=== PATIENT | male | born 1950 | race Caucasian/White ===

== ENCOUNTER 2016-08-02 07:01 | Outpatient (CLI) | payer MEDICARE, OTHER ==
--- NOTE | 2016-08-02 08:19 | XRAY Preliminary Report ---
Exam: XR Chest 2 View PA/LAT IMPRESSION: New pulmonary nodule in the apical right upper lobe with ill-defined nodular mid and lower lung opaci ties. CT chest can evaluate for pulmonary metastases. [facility] SITE ID: [id number]
--- NOTE | 2016-08-02 08:22 | XRAY Report ---
EXAM: CHEST RADIOGRAPHY EXAM DATE: 08/02/2016 07:13 AM. CLINICAL HISTORY: ESOPHAGEAL CANCER. COMPARISON: Chest radiograph 12/21/2015. TECHNIQUE: 2 views. FINDINGS: Lungs/Pleura: New pulmonary nodule in the apical right upper lobe. Ill-defined nodular opacities in t he mid and lower lungs. Subsegmental atelectasis at the right lung base. Mediastinum: Stable Other: Left-sided port with the tip in the superior vena cava. IVC filter noted. IMPRESSION: New pulmonary nodule in the apical right upper lobe with ill-defined nodular mid and lower lung opaci ties. CT chest can evaluate for pulmonary metastases. [facility] Referring Provider Line: [phone] SITE ID: [id number]
== END 2016-08-02 07:02 | disposition home or self-care (01) ==
LOC: DI 07:01
PROVIDERS: ATTEND Internal Medicine Hematology & Oncology
DX: R91.1 Solitary pulmonary nodule (principal); R91.8 Other nonspecific abnormal finding of lung field
CPT/HCPCS: 71020

== ENCOUNTER 2016-08-25 10:20 | Outpatient (CLI) | payer MEDICARE, OTHER ==
--- NOTE | 2016-08-27 11:28 | CONSULTATION NOTE ---
DATE OF CONSULTATION: 08/25/2016 00:00:00 REQUESTING PROVIDER: Anastacio Gilliland MD. TIME OF VISIT: 10:30-11:45. TOPIC: Initial palliative care consult. Thank you, Dr. Gilliland, for asking the Palliative Care Consult Service to be involved in the care of your patient. I am asked to provide support for pain and symptom control, as well as goals of care . History obtained from medical records, patient and . 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 He has lung and liver meta stases and progressive adenopathy. His first encounter was with the emergency room visit with chest p ain for 2 weeks with increasing shortness of breath in 10/2015. At that point in time, they did find s ome abdominal findings in the liver and lung, for which he was supposed to seek workup. He did get a PET CT scan, as well as an EGD on 12/07/2015 that did find the mass at the GE junction. His PET CT di d confirm lung and liver metastases. He did originally start with a referral to [facility]; he was pursuing a clinical trial during that workup, in December, they did find a right lower extremity DVT, and did have placement of an iliac vena cava filter. Unfortunately he was hospitalized with a GI bleed and ta jeronimo off his blood thinners but then presented in 11/2015 with an extensive left DVT. He has finished 11 cycles of FOLFOX but was experiencing progressive CEAs as well as progressive neur opathy. He was quite disappointed to find he had recurrent disease and a right pleural effusion. He s till continues with increasing liver lesions, adenopathy, and a new bone lesion at T7. He recently st arted his first round of new chemotherapy, paclitaxel and ramucirumab. This is second-line therapy. T he patient does understand the seriousness of his illness but continues to hope for the best. We are meeting today to talk about symptoms, as well as goals of care. PAST MEDICAL HISTORY Includes: 1. GERD. 2. Hiatal hernia. 3. Colon polyp. 4. Hemorrhoids. 5. Shoulder arthroplasty. 6. Colonoscopy. 7. EGD. SYMPTOM BURDEN: Patient does present with pain at 3/10. It is mostly located in his left shoulder. He does have some sharp, tingling pains bilaterally in his hands, his feet, and up traveling to his nomi ves. He reports the neuropathic discomfort at an 8/10, sees it more as the fine motor numbness, inabi lity to button shirts, his balance; and distress at the progressiveness of this. He has fatigue at a 3/10, drowsiness 2/10; denies any nausea. His appetite, with no lack of appetite 0, worst 10, a 2/10. He does have increasing shortness of breath 8/10; this is impacted with any kind of activity. He has to rest frequently even after 1 flight of stairs. He denies any depression and anxiety but does not perceive his overall wellbeing from 0-10, with zero being best wellbeing, as a 2/10. MEDICATION ALLERGIES: NONE. CURRENT MEDICATION LIST Includes: 1. Protonix 40 mg daily. 2. Hydromorphone 2 mg tabs 1-2 q.4 hours p.r.n. 3. Enoxaparin 120 mg subcu every day. 4. Ondansetron 8 mg 1 tab q.8 hours p.r.n. 5. Compazine 10 mg q.6 hours p.r.n. breakthrough nausea. MEDICATION ALLERGIES: NO KNOWN DRUG ALLERGIES. CODE STATUS: Please see palliative care discussion below. We did complete a POLST as a DO NOT RESUSCI MONDRAGON, LIMITED INTERVENTIONS, DETERMINE THE USE OR LIMITATION OF ANTIBIOTICS IF INFECTION OCCURS, WITH COMFORT THE GOAL, NO MEDICALLY ASSISTED NUTRITION. DPOA: Halle Yang, his spouse, is his DPOA; [phone]. BRIEF SOCIAL HISTORY: Patient retired in 2011 from [employer]. 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 He lives at a home with a boat and a dock, which he really enjoy s, as far as quality of life. He has a daughter with a grandson and son with 3 kids, and a stepson. Marbella baker is quite connected to the community, many friends and neighbors today, as well as the [employer]. MARITAL STATUS: He is to his , Halle. USE OF ALCOHOL: Drinks occasionally. TOBACCO: None. FAMILY HISTORY: History includes both his parents who had dementia and at [facility], as well as the of a brother who of alcoholism. PERFORMANCE STATUS: The patient is mostly limited by his dyspnea, as far as activity tolerance. He is independent in all his ADLs. He still works on his boat, is able to walk short distances though has increased trouble with cough and breathlessness. I would put him at a palliative care performance sta tus of 80%. REVIEW OF SYSTEMS HEENT: He was having some difficulty swallowing, denies any currently. CARDIOVASCULAR: Denies chest pain, though does have exertional dyspnea. RESPIRATORY: He has a very bothersome recurrent cough without any sputum. He is short of breath with exertion, needing to rest frequently, particularly doing flights of stairs. GASTROINTESTINAL: He has had history of intermittent constipation, is using MiraLax with good results . He denies any nausea. His appetite has been good. His has been quite attentive, as far as the patient has only had about a 10-pound weight loss. GENITOURINARY: Denies difficulty. MUSCULOSKELETAL: He has some left shoulder pain; some increase in activity intolerance, though this i s not attributed to weakness but dyspnea. INTEGUMENTARY: He complains of dry skin. NEUROLOGIC: As noted above, severe neuropathy in his hands, feet, and traveling up into his calf. Gio e increased balance issues. PSYCHIATRIC: Denies depression or anxiety. ENDOCRINE: No history of diabetes or hypothyroidism. HEMATOLOGIC/IMMUNOLOGIC: He has had some neutropenia but otherwise has done fairly well. No infection s. PHYSICAL EXAMINATION GENERAL APPEARANCE: He does appear somewhat fatigued, pale in color; makes good eye contact, voice is modulated. HEENT: Eyes are normal on inspection. ENT: His mucous membranes are moist. NECK: His trachea is midline. No lymphadenopathy appreciated. RESPIRATORY: He does have decreased breath sounds in the bases, no breath sounds in the bottom third of his right lower lung, dull to percussion. He does have on CT findings a right pleural effusion. CARDIOVASCULAR: His rate and rhythm are regular. Pulse is 83, blood pressure 125/82. ABDOMEN: Flat, bowel tones positive. SKIN: Color pale. EXTREMITIES: No lower extremity edema noted today. PALLIATIVE CARE DISCUSSION/WHO IS PRESENT: Myself, Halle, and the patient. The patient does recognize the seriousness of his illness, though does admit to not knowing really what to expect; feels quite f ortunate that though he has that disease, he has been quite functional without severe pain. Most prob lematic symptom has been the cough and the shortness of breath. They report they do have a durable power of medical health corporate associate attorney. I did ask that we get that on fi le. He is quite disappointed, as far as being able to participate in a clinical trial. He had been tu rned down because of his history of bleeding and having received transfusions; is wondering at this p oint, now that he has had progressive disease, and is further out from that episode, if he would be a candidate. We did discuss, as far as clinical trials overall, I did give them the website for clinic altrials.gov and the difference between phase 1, phase 2, and phase 3. I did offer to follow up with Dr. Gilliland, if he wanted further consult at [facility]; he is going to wait until Dr. Mijares comes this next time. They have had experience with her before at [facility], [facility]. I did introduce the POLST, since patient has been quite adamant when his time comes to ALLOW NATURAL , to be a DO NOT ATTEMPT RESUSCITATION. He has previously chosen DNR in his hospitalizations. We did discuss his overall goals are to focus on quality of life. He is currently getting treatment to extend quantity, but at end of life he wants a comfortable and respectful . I did introduce the concept of hospice, at the point in time he either no longer has treatment options, or he chooses no longer to be treated, and to focus on comfort. We also marked DETERMINE THE USE OR LIMITATION OF ANTI BIOTICS WHEN INFECTION OCCURS, WITH COMFORT THE GOAL, again weighing benefits and burdens at the p oint in time those decision are needed, as well as NO MEDICALLY ASSISTED NUTRITION in the context of ydu-po-trvt-extending suffering. We did review that the POLST is just a guide post, that the resuscitation is the valverde component for [facility], but all other points can be negotiated, as far as weighing benefits and burdens at this point in time. They do feel like they have talked enough to each other, as far as what he may or may not want, and understand if Halle is supposed to speak for him, he feels confident she has the information, as well as she does too. Also introduced the role of palliative care in following along side and supporting his current goals. IMPRESSION: This is a krupa 66-year-old gentleman, who has high tumor burden with stage IV esophagea l cancer at the gastroesophageal junction, metastases to the lung and liver, now with progressive dis ease, currently on second-line therapy. Advanced care planning was discussed and form completed today . Please see discussion below about symptom burden. RECOMMENDATIONS/COUNSELING DONE 1. 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 Patient is mostly experiencing numbness, some sharp shooting pains and tingling, but not in the context of pain, more so in the ability to do things. He was interested in learning about medical marijuana, counseling was done regarding THC versus CBD rati os, side effects, and current evidence. I did encourage him to visit a shop and talk specifically reg arding recommendations, as far as different products. I did review, again, the role of cannabinoids, particularly in management of neuropathy, does have some evidence; what is not known is, of course, t he dosing and quality of the products. I did also introduce duloxetine, which, in the medical world, does have some evidence for chemotherapy-induced neuropathy, particularly for the pain component and if it becomes more problematic, and as well other medications that might be tried are gabapentin and Lyrica. 2. Dyspnea secondary to lung metastases and probable progressing right effusion. Patient does have un derlying cough, increased shortness of breath, does have diminished breath sounds and dull to percuss ion; did review if patient's shortness of breath, cough, or discomfort increases, they may want to ge t a followup chest x-ray, that if it is a point of distress, can evaluate if thoracentesis may be cam ropriate. 3. Constipation. Patient is currently managing on current bowel program, did introduce bowel program, as far as opioid-induced constipation, with MiraLax as the mush and senna as the push; did write out instructions. 4. Cough and chest discomfort. Patient does get relief after a few days after chemotherapy. He did at tribute it to his chemotherapy regimen. I suspect it is more related to his dexamethasone, as it does seem to wear off over the several days after. Patient may be a candidate for ongoing support with De cadron or prednisone; this was reviewed with patient as far as options. Also encouraged him to use th e hydromorphone 2 mg 4 times a day to help with cough and breathlessness. Patient remains quite hesit ant, but did counseling regarding it as a "tool in his toolbox" and encouraged him to give it a try; addressed concerns and barriers regarding this. 5. Advanced care planning. I did review the seriousness of his illness, the continuum of care, patien t's goals of care. He is quite hopeful and wanting to do what he can to further impact his disease, i ncluding clinical trials. He will review this with his new oncologist but also is given information a bout clinicaltrials.gov, and as well discussed at end of life the goal of hospice and transitioning r egarding this and addressed all questions and concerns. Time spent 75 minutes, with greater than 50% of this done in counseling and coordination of care, brent ghing benefits and burdens of different treatment options for pain and dyspnea, as well as advanced c are planning and anticipatory guidance. JOB #: [id number] EXT JOB #:[id number]
== END 2016-08-25 10:21 | disposition home or self-care (01) ==
LOC: PC 10:20
PROVIDERS: ATTEND Nurse Practitioner Adult Health
DX: Z51.5 Encounter for palliative care (principal); G62.0 Drug-induced polyneuropathy; T45.1X5A Adverse effect of antineoplastic and immunosuppressive drugs, initial encounter; R05 Cough; R06.02 Shortness of breath; R07.89 Other chest pain; J91.0 Malignant pleural effusion; K59.03 Drug induced constipation; T40.2X5A Adverse effect of other opioids, initial encounter; M25.512 Pain in left shoulder; C16.0 Malignant neoplasm of cardia; C78.00 Secondary malignant neoplasm of unspecified lung; C78.7 Secondary malignant neoplasm of liver and intrahepatic bile duct; R59.9 Enlarged lymph nodes, unspecified; M89.9 Disorder of bone, unspecified; K21.9 Gastro-esophageal reflux disease without esophagitis; Z79.01 Long term (current) use of anticoagulants; Z86.718 Personal history of other venous thrombosis and embolism; Z66 Do not resuscitate; Z79.891 Long term (current) use of opiate analgesic; Z79.899 Other long term (current) drug therapy
CPT/HCPCS: 99205

== ENCOUNTER 2016-08-31 12:28 | Outpatient (CLI) | payer MEDICARE, OTHER ==
--- NOTE | 2016-08-31 14:11 | XRAY Report ---
CHEST PA AND LATERAL: 08/31/2016 CLINICAL HISTORY: Shortness of breath and known right pleural effusion on a chest CT from 08/02/2016. COMPARISON: Chest CT from 08/02/2016. FINDINGS: The bony thorax demonstrates minimal old compression fractures of T5 and T6 with slight lo ss in the height of these vertebrae. Normal cardiac size is noted. A catheter is seen in place with its tip in the superior vena cava. It enters the vascular system via the left subclavian vein. The mediastinum is not widened. The pulmonar y parenchyma demonstrates a large pleural effusion that almost is completely obscuring the right lung except for a small section of the right lung apex. Despite this large pleural effusion, there is no mediastinal shift. This indicates significant atelectasis of the right lung. Mild interstitial parenchymal disease is seen about the left perihilar region. Associated with this p arenchymal disease. This finding may be related to a known malignancy. The pleural effusion also is p robably related to a known malignancy. IMPRESSION: 1. EXTREMELY LARGE RIGHT PLEURAL EFFUSION IS NOTED OBSCURING ALMOST ALL OF THE RIGHT LUNG. ASSOCIATED SIGNIFICANT ATELECTASIS OF THE RIGHT LUNG IS SEEN. THE COMBINATION OF FINDINGS ARE MOST LIKELY THE R ESULT OF PATIENT'S KNOWN METASTATIC ESOPHAGEAL CARCINOMA. 2. MILD INTERSTITIAL PARENCHYMAL DISEASE IS SEEN IN THE LEFT MID TO LOWER LUNG FIELD WITH AN ELEMENT OF NODULARITY. THE FINDINGS ARE RELATED TO METASTATIC ESOPHAGEAL CARCINOMA. 3. A PORT-A-CATH IS SEEN IN PLACE WITH ITS TIP IN THE SUPERIOR VENA CAVA. COMMENT: Nurse practitioner, Carson, was notified of the above findings via her Oncology clinic suppor t staff. This notification was done by Dr. Kuhn on 08/31/2016 at 1 p.m. JOB #: [id number] EXT JOB #:[id number]
[2016-08-31 16:59] VITALS: BP 119/68
[2016-08-31] MEDS ORDERED: BUFFERED LIDOCAINE 10 ML SYRINGE IU ONE (17:21)
--- NOTE | 2016-08-31 17:31 | XRAY Report ---
CHEST PA AND LATERAL: 08/31/2016 CLINICAL HISTORY: Post right thoracentesis. FINDINGS: Less than optimal inspiratory effort is noted. Improvement is noted as compared to pre-thoracentesis chest film. Now approximately 50% of the lung parenchyma is visualized as compared to just the right lung apex prior to the thoracentesis. By ultrasound and by patient's chest x-ray, there probably is around 750 mL of fluid still remaining in the right chest. A limitation is placed on the amount of pleural fluid that can be removed at any one time because of the possibility of inducing a pneumothorax ex vacuo. Because there still is approximately 750 mL of pleural fluid remaining, suggest a Pleurx catheter be considered. Other option is to do another thoracentesis and completely drain the amount of pleural fluid present with a caveat that a chest tube might have to be placed after the procedure is completed as the result of a pneumothorax ex vacuo. The present exam also demonstrates some associated residual atelectasis in and about the right suprahilar region. The left lung once again demonstrates interstitial parenchymal disease in association with some nodularity. This most likely represents metastatic lung disease from patient's esophageal cancer. A Port-A-Cath is noted in place with its tip in the superior vena cava. The cardiac size is obscured by elevated diaphragm as well as right pleural effusion. IMPRESSION: 1. INTERVAL REMOVAL OF 1500 mL OF A RIGHT PLEURAL EFFUSION. THERE IS STILL AT LEAST 750 mL OF PLEURAL FLUID REMAINING. SEE ABOVE DISCUSSION. 2. THE EXAMINATION IS NEGATIVE FOR PNEUMOTHORAX. 3. METASTATIC LUNG DISEASE IS SEEN IN THE LEFT MID TO LOWER LUNG FIELD. 4. PORT-A-CATH NOTED IN PLACE WITH ITS TIP IN THE SUPERIOR VENA CAVA. JOB #: [id number] EXT JOB #: [id number] MTDD
--- NOTE | 2016-09-01 07:35 | Ultrasound Report ---
RIGHT THORACENTESIS UNDER ULTRASOUND GUIDANCE: 08/31/2016 CLINICAL HISTORY: Right pleural effusion related to esophageal carcinoma. FINDINGS: A PAR conference was held and informed consent was obtained. The patient's INR was 1.1. Th e patient, however, did take Lovenox today. The patient's right back was sterilely prepped and draped with Betadine and Chloraprep. Sterile techn ique was used throughout the exam. Under ultrasound guidance, 7 mL of 1% Xylocaine was used in the sk in and subcutaneous tissues of the right back. A small skin incision was made with a #11 scalpel. Und er ultrasound guidance, a Srb-P-cqdnsltb trocar catheter system was placed into the right thoracic ca vity. Once the system was in the thoracic cavity, the inner needle was removed and the catheter was a dvanced into the right pleural cavity. A total volume of 1675 mL of a serous effusion was removed fro m the right pleural cavity. There was more fluid present but it was decided to remove no more in an e ffort to avoid a pneumothorax ex vacuo. The patient tolerated the procedure well. No excess bleeding was encountered. The area of the incisio n was cleansed, covered with a 4x4 and Tegaderm. IMPRESSION: SUCCESSFUL RIGHT THORACENTESIS UNDER ULTRASOUND GUIDANCE WAS DONE USING A [id number]-[id number] CATHETER. 1675 mL OF CLEAR SEROUS EFFUSION WAS REMOVED FROM THE RIGHT PLEURAL CAVITY. RESIDUAL RIGHT PLEURAL EFFUSION WAS PRESENT BUT A LIMITATION IS PLACED ON THE AMOUNT OF PLEURAL FLUID REMOVED AT AN Y ONE TIME FOR REASONS DISCUSSED ABOVE. JOB #: [id number] EXT JOB #:[id number]
== END 2016-08-31 12:29 | disposition home or self-care (01) ==
LOC: DI 12:28
PROVIDERS: ATTEND Nurse Practitioner Adult Health
DX: J90 Pleural effusion, not elsewhere classified (principal); J98.11 Atelectasis; J98.4 Other disorders of lung; Z95.828 Presence of other vascular implants and grafts; C78.02 Secondary malignant neoplasm of left lung; C15.9 Malignant neoplasm of esophagus, unspecified; C78.7 Secondary malignant neoplasm of liver and intrahepatic bile duct
CPT/HCPCS: 32555; 36415; 71020; 85610

== ENCOUNTER 2016-09-04 10:29 | Outpatient (CLI) | payer MEDICARE, OTHER ==
--- NOTE | 2016-09-04 11:36 | XRAY Report ---
TWO-VIEW CHEST: 09/04/2016 CLINICAL INDICATION: Followup right effusion. FINDINGS: Frontal and lateral views of the chest are compared to preprocedure and postprocedure film s of 08/31/2016. The cardiac silhouette is within normal limits. Left subclavian port is stable. R ight effusion appears similar to postprocedure films of 08/31/2016. No pneumothorax is present. IMPRESSION: RESIDUAL RIGHT EFFUSION, SECONDARY TO KNOWN METASTATIC ESOPHAGEAL CANCER. NO SIGNIFICAN T INTERVAL CHANGE FROM POSTPROCEDURE FILM OF 08/31/2016. JOB #: [id number] EXT JOB #:[id number]
== END 2016-09-04 10:30 | disposition home or self-care (01) ==
LOC: DI 10:29
PROVIDERS: ATTEND Nurse Practitioner Adult Health
DX: J91.0 Malignant pleural effusion (principal); C15.9 Malignant neoplasm of esophagus, unspecified
CPT/HCPCS: 71020

== ENCOUNTER 2016-09-04 16:05 | Outpatient (CLI) | payer MEDICARE, OTHER ==
--- NOTE | 2016-09-05 11:58 | CONSULTATION NOTE ---
DATE OF CONSULTATION: 09/04/2016 00:00:00 REQUESTING PROVIDER: Anastacio Gilliland MD TIME OF VISIT: 1145 to 1230 Thank you, Dr. Gilliland, for asking the palliative care consult service to be involved in the care of your patient. I am asked to provide support for pain and symptom control, as well as goals of care . 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 He has lung and liver mets, and pro gressive adenopathy. He most recently had increasing chest heaviness, shortness of breath and cough. He was sent in for a chest x-ray with a followup thoracentesis as his right pleural effusion had incr eased. On 08/31, he did have a right thoracentesis under ultrasound guidance with almost 1700 mL of c lear serous effusion removed from the right pleural cavity. He continued to have residual right pleur al effusion, but was limited by the amount of fluid able to be removed. In followup with him on the , we did discuss followup with chest x-ray on Sunday, concern for recurrent distress regarding th is. On 09/04, his residual right effusion continued with no significant interval change from the post procedure film of 08/31. He still remains fairly short of breath with less chest heaviness and contin ues with some right chest intermittent sharp shooting pain that comes and goes, but also significant activity intolerance. In discussion with the radiologist regarding whether to continue with another t horacentesis, his recommendation was for surgical consult for pleurodesis or pleural catheter placeme nt. This was discussed at length with the patient during our visit today. Patient is continuing on FO LFOX therapy. He has had progressive CEAs as well as progressive neuropathy. He does recognize the se riousness of his illness, but is continuing to hope for the best and currently now he has fairly high symptom burden and concern regarding his right pleural effusion. SYMPTOM BURDEN: His pain overall is fairly minimal though with exertion does have some heaviness. He does have what he feels like a "rubbing effect" on the right side. His pain on the left he describes as somewhat of a buzz. He does have fatigue, he is limited by his dyspnea. He denies any nausea. His appetite has been diminishing, this is mostly related to taste changes. He denies depression. He does not feel overwhelmed. He has had some intermittent anxiety and is hoping to improve his quality of l carmella, though feels like this is impacted by his neuropathy. MEDICATION ALLERGIES: NONE. CURRENT MEDICATION LIST Includes: 1. Protonix. 2. Hydromorphone 2 mg tabs, 1-2 q.4h. p.r.n. 3. Enoxaparin 120 mg subcu every day. 4. Ondansetron 8 mg 1 tab q.8h. p.r.n. 5. Compazine 10 mg q.6h. p.r.n. breakthrough nausea. 6. Tessalon Pearles 100 mg up to TID 7. Gabapentin 100 mg at bedtime (added to today) CODE STATUS: Patient has completed a POLST, is a DO NOT RESUSCITATE, LIMITED INTERVENTIONS, DETERMINE THE USE OR LIMITATION OF ANTIBIOTICS IF INFECTION OCCURS WITH COMFORT THE GOAL AND NO MEDICALLY-A SSISTED NUTRITION. Patient goals are to continue on with treatment and support as long as quality of life and independence remains acceptable. His DPOA is Halle Yang, his spouse, . BRIEF SOCIAL HISTORY: Patient is retired from [employer]. 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 He really enjoys living at his current home with his boat on a dock. He has a daughter, son and stepson. He is quite connected in the community, and well supported by neighbors , friends and his yazdanism. PERFORMANCE STATUS: The patient is mostly limited by his dyspnea. He is able to walk short distances. He is independent in his ADLs. He continues to be impacted by his cough and breathlessness, and has had less activity over the last several days. I would put his palliative care performance status at 7 0%. REVIEW OF SYSTEMS HEENT: Had some intermittent difficulty with swallowing, but not recently. CARDIOVASCULAR: As noted above, some sharp shooting pains of his chest but not chest pain overall. RESPIRATORY: He has cough after the thoracentesis. Continues with deep breath but has improved over t he last several days. It is without sputum. He does get short of breath with exertion. Denies shortne ss of breath at rest. GASTROINTESTINAL: Reports his constipation is improved. He continues to eat poorly, concerned about o ngoing weight loss. GENITOURINARY: Denies difficulty. MUSCULOSKELETAL: Has decreased his activity. INTEGUMENTARY: Complains of dry skin. NEUROLOGIC: Continues to complain of severe neuropathy in his hands and feet, and today he did admit to sharp kind of feeling in his hands, like holding tacks in his hands. Otherwise, there is neuropath y in his legs and feet, has mostly been numbness and has impacted his ability to hold things, fine mo tor movement, and balance. PSYCHIATRIC: Denies depression. Is present with some anxiety, is worried about the recurrent effusion s and his overall prognosis. ENDOCRINE: No history of diabetes or hypothyroidism. HEMATOLOGIC/IMMUNOLOGIC: Does continue with his enoxaparin for history of clots. PHYSICAL EXAMINATION GENERAL APPEARANCE: He does appear somewhat fatigued, pale in color, voice is modulated. EYES: Normal on inspection. ENT: Mucous membranes are moist. NECK: Trachea is midline. No lymphadenopathy appreciated. RESPIRATORY: He does have diminished breath sounds about a third to half way up on the right. He does have a dry, squeaky cough. His left side is clear, though diminished in the base. CARDIOVASCULAR: His pulse is 84, O2 saturations are 95%, blood pressure 119/72. ABDOMEN: Flat, bowel sounds positive. SKIN: Color pale. EXTREMITIES: No lower extremity edema noted today. PALLIATIVE CARE DISCUSSION: Who is present; myself, Halle, and the patient. The patient remains quite concerned over the recurrent pleural effusion and the next steps as far as his treatment. Is wanting to continue with treatment but keeps bumping up against complications. Continues to want to focus on improving quality of life as well as extending life expectancy though does recognize that this is dora te limited. IMPRESSION: This is a krupa 66-year-old gentleman who has high tumor burden with stage IV esophageal cancer of the gastroesophageal junction with metastases to the lung and liver, now with fairly aggre ssive right malignant pleural effusion. Continue with advanced care planning and facilitate consults regarding pleural effusion. RECOMMENDATIONS/COUNSELING DONE 1. Neuropathy, chemotherapy induced. Again, the patient has mostly experienced numbness though does r eport some sharp shooting pains and tingling. I had educated him per his request regarding marijuana on the role in neuropathy, which is limited as far as the motor component more indicated for the neur opathic pain component. He does not feel like "he can go there." I did write him a prescription for g abapentin 100 mg at bedtime to try reminding him that we can titrate this up. He remains quite hesita nt to increase any medication or pill burden. 2. Dyspnea secondary to lung metastases and right pleural effusion. He has used the hydromorphone wit h some improvement in management of it at night. He is pacing his activity. Call in to Dr. Gilliland regarding referral and recommendations for management of his pleural effusion. Recommended consideri ng awakes with orthopnea to sleep in recliner with head of bed up. 3. Constipation. Patient currently managing on current bowel program. 4. Anorexia. The patient is complaining of taste changes. May consider adding Decadron in the future as far as support. 5. Advanced care planning. Does have a POLST in place. Will continue to work with his goals of care, address ongoing concerns. ADDENDUM 09/05/2016 AT 0735: Did talk to Dr. Gilliland. He recommends the patient gets surgical cons ult for pleurodesis versus Pleurx catheter. He tends to favor pleurodesis but would need to recognize the patient most likely would need to be hospitalized several days for this. Call to surgical center for followup. Dr. Ayoub, his regular surgeon, is not available. Varsha Chilel RN will get back t o me as far as who is available for pleurodesis versus Pleurx catheter and available appointment on a n urgent basis. Will go ahead and send referral over. JOB #: [id number] EXT JOB #:[id number]
== END 2016-09-04 16:06 | disposition home or self-care (01) ==
LOC: PC 16:05
PROVIDERS: ATTEND Nurse Practitioner Adult Health
DX: Z51.5 Encounter for palliative care (principal); G62.9 Polyneuropathy, unspecified; T45.1X5A Adverse effect of antineoplastic and immunosuppressive drugs, initial encounter; K59.00 Constipation, unspecified; R63.0 Anorexia; C16.0 Malignant neoplasm of cardia; C78.00 Secondary malignant neoplasm of unspecified lung; C78.7 Secondary malignant neoplasm of liver and intrahepatic bile duct; J91.0 Malignant pleural effusion; R59.9 Enlarged lymph nodes, unspecified; F41.9 Anxiety disorder, unspecified; Z79.01 Long term (current) use of anticoagulants; Z79.891 Long term (current) use of opiate analgesic; Z66 Do not resuscitate
CPT/HCPCS: 99215

== ENCOUNTER 2016-09-20 07:38 | Outpatient (CLI) | payer MEDICARE, OTHER ==
[2016-09-20] MEDS ORDERED: GADOBUTROL 7.5 MMOL/7.5 ML VIAL IVP ONE (08:39)
--- NOTE | 2016-09-20 09:33 | MRI Preliminary Report ---
Exam: MRI Brain W/WO Impression: 1. There is no evidence of acute or subacute cerebral infarction. 2. There is a nonspecific T2 hyperintense lesion demonstrated in the anterior right temporal lobe fred suring 6 mm exhibiting a small focus of enhancement along the ventral margin of the abnormality. Give n the provided history is CVA less than 2 weeks ago, this potentially could represent an area of late subacute early chronic stage of cerebral infarction which can exhibit enhancement. If the patient chappell s had a prior MRI and those images become available, can be used to determine stability of this findi ng, otherwise, other etiologies including that a neoplasia could produce a similar appearance and can not be excluded. Therefore follow-up imaging may be useful to demonstrate resolution or stability of this finding. This can be performed as deemed clinically appropriate. Recommend clinical correlation with history. If the patient's prior imaging becomes available then an addendum to this report will b e made at that time. 3. There is mild to moderate chronic small vessel ischemia. There is no significant generalized volum e loss for the patient's stated age. SITE ID: [id number]
--- NOTE | 2016-09-20 17:12 | MRI Report ---
EXAM: MRI BRAIN WITHOUT AND WITH CONTRAST EXAM DATE: 09/20/2016 08:49 AM. CLINICAL HISTORY: History of CVA less than 2 weeks ago. 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 COMPARISON: None available. TECHNIQUE: Multiplanar, multisequence T1-weighted and fluid-sensitive MR sequences of the brain were performed. Sequences optimized for routine evaluation. Other: None. Without and with IV Contrast: 7.5 mL Gadavist. FINDINGS: The diffusion-weighted images are normal. There is no evidence of acute or subacute cerebral infarcti on. The pituitary and sella are normal. The corpus callosum is of normal size and configuration. The aircraft loadmaster superintendent niocervical junction is normal. The cerebral vascular flow voids are patent. The optic nerves demonst rate symmetric signal intensity and size. The bilateral parotid spaces exhibit normal signal intensity. There is a T2 hyperintense lesion of the anterior right temporal lobe measuring 6 mm. This exhibits a small focus of enhancement along the ventral margin of the abnormality (36, 1002). Given the provide d history of CVA less than 2 weeks ago, this potentially could represent an area of late subacute to early chronic cerebral infarction which can exhibit enhancement. If the patient has had prior MRI jennifer ging and that becomes available it could be used to determine stability of this finding. Otherwise, o ther etiologies, including that of neoplasia, could produce a similar appearance and cannot be exclud ed. Therefore, follow-up imaging may be useful to demonstrate resolution or stability of the finding, and this can be performed as deemed clinically appropriate. Recommend correlation with history. There are punctate and confluent areas of T2 hyperintensity of the subcortical, deep, and periventric ular white matter of the supratentorial brain. Cerebral volume is normal for the patient's stated age . The T2* sequence is normal. There is no evidence of subacute or chronic hemorrhage. The optic nerves exhibit symmetric signal intensities and size. The paranasal sinuses are normally ae rated. The bilateral operations general agent spaces exhibit symmetric densities. There is fluid intensity within a few right mastoid air cells. IMPRESSION: 1. There is no evidence of acute or subacute cerebral infarction. 2. There is a nonspecific T2 hyperintense lesion demonstrated in the anterior right temporal lobe fred suring 6 mm exhibiting a small focus of enhancement along the ventral margin of the abnormality. Give n the provided history of CVA less than 2 weeks ago, this potentially could represent an area of late subacute to early chronic stage of cerebral infarction which can exhibit enhancement. If the patient has had a prior MRI and those images become available, it can be used to determine stability of this finding; otherwise, other etiologies, including that of neoplasia, could produce a similar appearanc e and cannot be excluded. Therefore, follow-up imaging may be useful to demonstrate resolution or sta bility of this finding. This can be performed as deemed clinically appropriate. Recommend clinical co rrelation with history. If the patient's prior imaging becomes available then an addendum to this rep ort will be made at that time. 3. There is mild to moderate chronic small vessel ischemia. There is no significant generalized volum e loss for the patient's stated age. Referring Provider Line: [phone] SITE ID: [id number]
[2016-09-22] MEDS ORDERED: BUFFERED LIDOCAINE 10 ML SYRINGE IU ONE (16:41)
== END 2016-09-20 07:39 | disposition home or self-care (01) ==
LOC: DI 07:38
PROVIDERS: ATTEND Family Medicine
DX: G93.9 Disorder of brain, unspecified (principal); I67.82 Cerebral ischemia
CPT/HCPCS: 70553; A9585

== ENCOUNTER 2016-09-25 09:13 | Emergency (ER) | payer MEDICARE, OTHER ==
--- NOTE | 2016-09-25 09:35 | ED Physician Documentation ---
History of Present Illness - Stated complaint Stated Complaint: SWELLING RT SIDE, BACK - Chief complaint Chief Complaint: General - Additonal information Additional information: hx from pt and EMR 66 [place] [facility] [place] mets to lungs liver and bones s/p L thoracentesis 10/02 at [facility] yesterday leaned back against pew and felt as if there was a hard golf ball swelling at procedure site now with focal TTP at site and swelling inf and lateral to site no soa cough or fever had labs Sunday has CT and MRI last week before procedure as well Review of Systems Constitutional: denies: Fever, Chills Cardiac: denies: Chest pain / pressure, Palpitations Respiratory: denies: Dyspnea, Cough Musculoskeletal: reports: Back pain (and swelling) Endocrine: reports: Easy bruising / bleeding (lovenox) Immunocompromised: reports: Chemotherapy. denies: Immunocompromised PD PAST MEDICAL HISTORY - Past Medical History Past Medical History: Yes Cardiovascular: None Respiratory: None, Other Neuro: None Endocrine/Autoimmune: None GI: GERD, Hiatal hernia, Colon polyps, Hemorrhoids : None HEENT: None Psych: Panic attacks Musculoskeletal: Chronic back pain Derm: None - Past Surgical History Past Surgical History: Yes General: Colonoscopy Ortho: Shoulder arthroplasty - Present Medications Home Medications: Ambulatory Orders Medication Instructions Recorded Confirmed Pantoprazole [Protonix] 40 mg PO DAILY 02/02/16 09/25/16 Enoxaparin [Lovenox] 120 mg SQ DAILY 03/22/16 09/25/16 Benzonatate [Tessalon Perle] 1 tab ORAL Q6HR 08/23/16 09/25/16 HYDROmorphone [Dilaudid] 1 - 2 tab ORAL Q4HR PRN 08/23/16 09/25/16 Gabapentin 100 mg PO DAILY 09/06/16 09/25/16 - Allergies Allergies/Adverse Reactions: Allergies Allergy/AdvReac Type Severity Reaction Status Date / Time No Known Drug Allergies Allergy Verified 01/17/16 11:53 - Social History Does the pt smoke?: No Smoking Status: Never smoker Does the pt drink ETOH?: No Does the pt have substance abuse?: No PD ED PE NORMAL - Vitals Vital signs reviewed: Yes - Cardiac Cardiac: RRR - Respiratory Respiratory: No respiratory distress, Clear bilaterally, Other (puncture site posterior right chest wall, TTP mild swelling no erythema, more sig swelling with slight erythema to upper lateral abd wall, otherwise, no abd TTP) Results - Vitals Vitals: Vital Signs - 24 hr 09/25/16 09/25/16 09:21 12:31 Temperature 36.4 C L 36.6 C Heart Rate 93 78 Respiratory 18 17 Rate Blood Pressure 114/70 115/75 O2 Saturation 94 100 Oxygen O2 Source Room air - Rads (name of study) ST sono Radiology: See rad report (Soft Tissue fluid c/w seroma or pleural fluid leak but not heterogeneous or sugegstive of blood or abscess) CXR Radiology: See rad report (no pneumo, small residual effusin, patchy opacities dec from prior (known mets)) Departure - Departure Disposition: 01 Home, Self Care Clinical Impression: Seroma complicating a procedure Condition: Good Instructions: ED Seroma Post Op Follow-Up: Deion Cole MD [Primary Care Provider] - Radha Mijares MD [Provider Admit Priv/Credential] - Comments: The chest xray did not show any collapsed lung, there is still a small amount of fluid in the lungs. The ultrasound was read by our radiologist and is most consistent with an uncomplicated fluid collection called a seroma - possibly due to some lung fluid continuing to drain from the puncture suite. The ultrasound does not suggest bleeding or infection/abscess So I think it is fine for you to go home. You can use a wide SHERRY wrap and apply ice for 20 minutes at a time to decrease the swelling. Have the [facility] recheck the swollen area at your appointment later this week. Return if worse (more swelling, pain, fever, swollen area become red and hot to the touch) Discharge Date/Time: 09/25/16 13:15
--- NOTE | 2016-09-25 11:27 | XRAY Preliminary Report ---
Exam: XR Chest 2 View PA/LAT IMPRESSION: 1. Mild to moderately low lung volumes. 2. Slight decreased patchy opacities at the mid to lower left lung. Persistent right lung base atelec tasis or consolidation. 3. Persistent tiny left and small to moderate-sized right pleural effusions. [facility] SITE ID: [id number]
--- NOTE | 2016-09-25 11:30 | XRAY Report ---
EXAM: CHEST RADIOGRAPHY EXAM DATE: 09/25/2016 10:52 AM. CLINICAL HISTORY: Shortness of breath. Status post right thoracentesis. COMPARISON: Chest radiography from 09/22/2016. TECHNIQUE: 2 views. FINDINGS: Lungs/Pleura: Moderate to moderately low lung volumes. Patchy opacities at the mid to lower left lung which had decreased slightly since the previous study. Tiny left and small to moderate size right pl eural effusion. No pneumothorax. Right lung base atelectasis or consolidation. No pneumothorax. Mediastinum: Heart and mediastinal contours are unremarkable. Other: calcified plaques at the thoracic aorta. Portacatheter tip is at the mid SVC. Inferior vena c sukhi filter is seen. IMPRESSION: 1. Mild to moderately low lung volumes. 2. Slight decreased patchy opacities at the mid to lower left lung. Persistent right lung base atelec tasis or consolidation. 3. Persistent tiny left and small to moderate-sized right pleural effusions. [facility] Referring Provider Line: [phone] SITE ID: [id number]
[2016-09-25 12:31] VITALS: BP 115/75
--- NOTE | 2016-09-26 10:08 | Ultrasound Report ---
RIGHT CHEST ULTRASOUND: 09/25/2016 CLINICAL HISTORY: The patient had recent right thoracentesis. A day or two later, he noted focal swel ling along the right lateral hemithorax extending anteriorly. He also noted mildly increased shortnes s of breath. TECHNIQUE: Real-time scanning was performed with quality assurance representative static images obtained. FINDINGS: Soft tissue ultrasound of the right chest and right anterior abdomen showed mild subcutane ous edema. This edema showed mild diffuse distribution in the subcutaneous soft tissues of the area o f involvement. No focal cystic areas were seen. Examination was negative for hematoma. The present findings most likely represent either extension of the Xylocaine used for the procedure w ithin the soft tissues. Other possibility is a small amount of the patient's known right pleural effu bree that has extended into the subcutaneous soft tissues through the hole in the pleura created duri ng the thoracentesis. The findings most likely do not represent a significant abnormality. Since the patient is encountering some mild increased shortness of breath, would complement the prese nt exam with a chest PA and lateral. IMPRESSION: MILD SUBCUTANEOUS EDEMA IS NOTED IN THE AREA OF SOFT TISSUE INVOLVEMENT WITHIN THE POSTE RIOR RIGHT CHEST AND RIGHT ANTERIOR ABDOMEN. JOB #: [id number] EXT JOB #:[id number]
== END 2016-09-25 13:15 | disposition home or self-care (01) ==
LOC: ED 09:13
DX: J95.862 Postprocedural seroma of a respiratory system organ or structure following a respiratory system procedure (principal); Y83.8 Other surgical procedures as the cause of abnormal reaction of the patient, or of later complication, without mention of misadventure at the time of the procedure; C16.9 Malignant neoplasm of stomach, unspecified; C78.00 Secondary malignant neoplasm of unspecified lung; C78.7 Secondary malignant neoplasm of liver and intrahepatic bile duct; C79.51 Secondary malignant neoplasm of bone; J98.19 Other pulmonary collapse; J90 Pleural effusion, not elsewhere classified; G89.29 Other chronic pain; Z92.21 Personal history of antineoplastic chemotherapy; Z79.02 Long term (current) use of antithrombotics/antiplatelets
CPT/HCPCS: 71020; 76705; 99283

== ENCOUNTER 2016-11-01 09:00 | Outpatient (CLI) | payer MEDICARE, OTHER ==
[2016-11-01 10:18] LABS: CREATININE 0.8 mg/dL (0.6-1.2)
== END 2016-11-01 09:01 | disposition home or self-care (01) ==
LOC: LAB.R 09:00
PROVIDERS: ATTEND Specialist
DX: C79.31 Secondary malignant neoplasm of brain (principal)
CPT/HCPCS: 82565; 84520

== ENCOUNTER 2016-11-02 10:15 | Outpatient (CLI) | payer MEDICARE, OTHER ==
--- NOTE | 2016-11-02 22:14 | PROVIDER PROGRESS NOTE ---
Palliative Care Follow Up - Referral Referring Provider: Dr. 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 He has had multiple lines of chemotherapy; currently on taxol/ramucirumab but ramucirumab on hold because of hemorrhoidal bleeding. He is very disappointed not moving forward on full treatment. He is scheduled for surgery on his internal hemorrhoid (difficulty with reducing) on 11/21. He has most recently had a restaging CT scan which showed new lytic lesions in 8th right rib and vertebral bodies. Of most significance is he had TIA with CT of Brain done 4 weeks ago and should brain mets. He has been put on enoxaparin. His repeat MRI showed increase size of the right termporal lesion and is going to be prepped for radiosurgery this weekend, and then follow up 11/14-11/16 per his understanding. He has had nor further neurological deficits. He has been uncomfortable on his right side/abd with seroma that developed after his last thoracentesis, and is due for another one today and is anxious. He is feeling somewhat dizzy and apprehensive prior to exam. I am meeting with him between chemotherapy (taxol) and his appointment. His cough has become problematic, as well as developed not nausea but gagging at times. Hoping with "tap" his symptoms will improve. Continues to try and stay positive but has had multiple challenges these last couple of months. Social History - Living Situation Living arrangement: At home Living Situation: With spouse/s.o. (Halle is primary caregiver) Support System: Describes a very supportive [employer] community and friends/family Medications/Allergies - Medications Home Medications: Ambulatory Orders Medication Instructions Recorded Confirmed Pantoprazole [Protonix] 40 mg PO DAILY 02/02/16 11/02/16 Enoxaparin [Lovenox] 120 mg SQ DAILY 03/22/16 11/02/16 HYDROmorphone [Dilaudid] 2 - 4 mg ORAL Q4HR PRN 08/23/16 11/02/16 Gabapentin 100 mg PO DAILY 09/06/16 11/02/16 Furosemide 20 mg PO DAILY 10/25/16 11/02/16 guaiFENesin/CODEINE [Robitussin AC] 5 - 10 ml PO Q4HR PRN 11/02/16 11/02/16 - Allergies Allergies/Adverse Reactions: Allergies Allergy/AdvReac Type Severity Reaction Status Date / Time No Known Drug Allergies Allergy Verified 09/27/16 17:38 Review of Systems - Constitutional Constitutional: reports: Fatigue, Weakness, Poor appetite, Weight loss - Eyes Eyes: reports: Corrective lenses - Ears, Nose & Throat Ears, Nose & Throat: reports: Hearing loss, Vertigo (dry mouth), Postnasal drainage - Cardiovascular Cariovascular: reports: Edema, Lightheadedness, Exertional dyspnea, Decr. exercise tolerance. denies: Chest pain - Respiratory Respiratory: reports: Cough, Orthopnea, SOB at rest, SOB with exertion - Gastrointestinal Gastrointestinal: reports: Nausea, Bloating, Poor appetite. denies: Bloody stools - Genitourinary Genitourinary: denies: Incontinence - Musculoskeletal Musculoskeletal: reports: Stiffness, Muscle weakness - Integumentary Integumentary: reports: Dryness, Hair changes (thinning;) - Neurological Neurological: reports: General weakness, Dizziness, Memory problems - Psychiatric Psychiatric: reports: Anxiety. denies: Depression - Endocrine Endocrine: reports: Intolerance to cold - Hematologic/Lymphatic Hematologic/Lymphatic: reports: Anemia - All Other Systems All Other Systems: reports: Reviewed and negative Physical Examination - Physical Exam General Appearance: positive: Mild distress, Anxious (pending thoracentesis) Eyes Bilateral: positive: Normal inspection ENT: positive: Pharynx nml, No signs of dehydration Neck: positive: No JVD, Trachea midline Respiratory: positive: Other (no breath sounds 2/[address] way up on right, left diminished in base; cough with any attempt at conversation) Cardiovascular: positive: Regular rate & rhythm Abdomen: positive: Nml bowel sounds, No distention Skin: positive: Pallor, Other (mild swelling over right side, slight tenderness ; seroma has disspated some from description and patient perception) Extremities: positive: No pedal edema (has support hose on) Neurologic/Psychiatric: positive: Oriented x3, Weakness, Depressed mood/affect Palliative Care - POLST Patient has POLST: Yes POLST Status: DNR, Limited Interventions (goal is to focus on quality of life; currently getting treatment to extend quantity, at end of life a comfortable and respectul ) Pain: Pain unchanged, Location (intermittent sharp shooting pains in feet; have some increase; numbness more bothersome; discomfort with swelling of right side , now improving), Comment (using hydromorphone 2 mg 1-2 tabs at night; occasionally during the day) Drowsiness: Mild (1-3) Nausea: Mild (1-3) Anxiety: Moderate (4-6) Dyspnea: Severe (7-10) Anorexia: Mild (1-3) Insomnia: Sleeps poorly Constipation: Yes, Opoid induced, Managed Feelings of wellbeing/Perceived Quality of Life: Worsening Performance Status: Patient still able to attend to ADLs; more fatigue; more difficulty with fine motor movement with neuropathy - Palliative Care Discussion: Patient continues to hope for the best, has been frustrated with all the complications/symptoms and issues that have developed. Acknowledged is difficult to cope when so many things are happening at the same time. He is just trying to stay calm and focused. POLST completed 08/25. At this point still very much focused on treatment options and improving quality and quantity of life. Remains concerned with impending thoracentesis with complication last time. Results - Lab Results Lab results reviewed: Yes Impression and Recommendations Recommendations/Counseling Done: 1. Post nasal drip, adds to phelgm and gagging. Unable to tolerate sprays without nose bleeds. Recommended try loratidine 10 mg daily, commit for about a week and see if improvement. 2. 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 Had started the gabapentin 100 mg at bedtime, did not continue after ran out "forgot what he was taking it for". Counseling on neuropathic pain, sharp shooting has been in feet and more problematic, encourage to restart and will titrate up to effect, in agreement. Using hydromorphone intermittently for discomfort and sleep. New Rx provided. 3. Constipation. Using Miralax, no further rectal bleeding, counseling reviewed on bowel medications and management. 4. Advanced care planning, has radiation for brain met planned, to have thoracentesis today, will continue as has improved some with treatment. Unfortunately patient continues with extended mets to brain and bone, patient continues to request support for treatment as long as adding to quality and quantity of life will move forward. Handicap Parking Permit/RX provided for patient Time Spent: Time spent 30 minutes with greater than 50% done in counseling for pain management and anticipatory guidance.
== END 2016-11-02 10:16 | disposition home or self-care (01) ==
LOC: PC 10:15
PROVIDERS: ATTEND Nurse Practitioner Adult Health
DX: Z51.5 Encounter for palliative care (principal); R09.82 Postnasal drip; G62.0 Drug-induced polyneuropathy; T45.1X5A Adverse effect of antineoplastic and immunosuppressive drugs, initial encounter; K59.03 Drug induced constipation; T40.2X5D Adverse effect of other opioids, subsequent encounter; C16.0 Malignant neoplasm of cardia; C78.7 Secondary malignant neoplasm of liver and intrahepatic bile duct; C78.00 Secondary malignant neoplasm of unspecified lung; K64.8 Other hemorrhoids; C79.31 Secondary malignant neoplasm of brain; Z86.73 Personal history of transient ischemic attack (TIA), and cerebral infarction without residual deficits; Z66 Do not resuscitate
CPT/HCPCS: 99214

== ENCOUNTER 2016-11-10 10:11 | Outpatient (CLI) | payer MEDICARE, OTHER ==
--- NOTE | 2016-11-10 10:45 | XRAY Report ---
TWO VIEW CHEST: 11/10/2016 CLINICAL INDICATION: Pleural effusion, dyspnea. COMPARISON: 11/01/2016. FINDINGS: Frontal and lateral views of the chest demonstrate increase in right pleural effusion. A l eft subclavian port is stable. No left effusion is seen. No pneumothorax. IMPRESSION: INTERVAL INCREASE IN RIGHT PLEURAL EFFUSION. JOB #: [id number] EXT JOB #:[id number]
== END 2016-11-10 10:12 | disposition home or self-care (01) ==
LOC: DI 10:11
PROVIDERS: ATTEND Nurse Practitioner Adult Health
DX: J90 Pleural effusion, not elsewhere classified (principal); R06.00 Dyspnea, unspecified
CPT/HCPCS: 71020

== ENCOUNTER 2016-11-10 10:32 | Emergency (ER) | payer MEDICARE, OTHER ==
[2016-11-10 11:17] LABS: BASOPHILS % (AUTO) 0.3 %; EOSINOPHILS % (AUTO) 4.9 %; HCT - HEMATOCRIT 27.9 % (42.0-52.0); HGB - HEMOGLOBIN 9.4 g/dL (14.0-18.0); LYMPHOCYTES % (AUTO) 18.1 %; MEAN CORPUSCULAR HEMOGLOBIN 31.5 pg (27.0-31.0); MEAN CORPUSCULAR HGB CONC 33.8 g/dL (32.0-36.0); MEAN CORPUSCULAR VOLUME 93.1 fL (80.0-94.0); MEAN PLATELET VOLUME 7.1 fL (7.4-11.4); MONOCYTES % (AUTO) 16.6 %; NEUTROPHILS % (AUTO) 60.1 %; RED BLOOD COUNT 2.99 10^6/uL (4.70-6.10); RED CELL DISTRIBUTION WIDTH 19.3 % (12.0-15.0); UNCORRECTED WHITE BLOOD COUNT 2.7 x10^3/uL; WHITE BLOOD COUNT 2.7 x10^3/uL (4.8-10.8)
[2016-11-10 11:29] LABS: BILIRUBIN,TOTAL 0.5 mg/dL (0.2-1.0); CALCIUM 8.6 mg/dL (8.5-10.3); CREATININE 0.8 mg/dL (0.6-1.2); POTASSIUM 4.1 mmol/L (3.5-5.0); TOTAL PROTEIN 6.3 g/dL (6.7-8.2)
--- NOTE | 2016-11-10 11:31 | ED Physician Documentation ---
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 He has had recurrent pleural effusions on the right side and has had it drained 3 times previously. The last was performed about a week ago here at her facility. The patient is currently off his chemotherapy but he sees another physician at [facility] where he is getting brain radiation for brain metastases. For the last day he has been more short of breath than usual. The shortness of breath is only with walking and does not occur at rest. He denies any fever or chills. There is no nausea, vomiting, constipation, diarrhea or lower urinary symptoms. A portable x-ray was done he was sent in for evaluation of recurrent right-sided pleural effusion. Review of systems: For pertinent positive and negatives in the review of systems please see the history of present illness, otherwise all other systems have been reviewed and are negative. Dragon disclaimer: Parts of this medical record were created using voice recognition technology. Because of the inherent limitations of this system, occasional same sounding word substitutions do occur and persist despite proofreading. Please read the document for context. Review of Systems Constitutional: denies: Fever, Chills Respiratory: reports: Dyspnea PD PAST MEDICAL HISTORY - Past Medical History Cardiovascular: None Respiratory: None, Other Neuro: None Endocrine/Autoimmune: None GI: GERD, Hiatal hernia, Colon polyps, Hemorrhoids : None HEENT: None Psych: Panic attacks Musculoskeletal: Chronic back pain Derm: None Other Past Medical History: Esophageal CA, metastatic to lungs and brain. - Past Surgical History Past Surgical History: Yes General: Colonoscopy Ortho: Shoulder arthroplasty - Present Medications Home Medications: Ambulatory Orders Medication Instructions Recorded Confirmed Pantoprazole [Protonix] 40 mg PO DAILY 02/02/16 11/10/16 Enoxaparin [Lovenox] 120 mg SQ DAILY 03/22/16 11/10/16 HYDROmorphone [Dilaudid] 2 - 4 mg ORAL Q4HR PRN 08/23/16 11/10/16 Gabapentin 100 mg PO DAILY 09/06/16 11/10/16 Furosemide 20 mg PO DAILY 10/25/16 11/10/16 guaiFENesin/CODEINE [Robitussin AC] 5 - 10 ml PO Q4HR PRN 11/02/16 11/10/16 Acetaminophen [Tylenol] 650 mg pe PO PRN PRN 11/10/16 11/10/16 Benzonatate [Benzonatate] 100 mg PO DAILY 11/10/16 11/10/16 - Allergies Allergies/Adverse Reactions: Allergies Allergy/AdvReac Type Severity Reaction Status Date / Time No Known Drug Allergies Allergy Verified 09/27/16 17:38 - Social History Does the pt smoke?: No Smoking Status: Never smoker Does the pt drink ETOH?: No Does the pt have substance abuse?: No - POLST Patient has POLST: Yes PD ED PE NORMAL - Vitals Vital signs reviewed: Yes - General General: Alert and oriented X 3, No acute distress - HEENT HEENT: Atraumatic, PERRL, Pharynx benign - Neck Neck: Supple, no meningeal sign - Cardiac Cardiac: RRR, No murmur - Respiratory Respiratory: No respiratory distress, Other (Decreased breath sounds right side and dullness to percussion right side involving the entire lung) - Abdomen Abdomen: Normal bowel sounds, Soft - Derm Derm: Normal color, Warm and dry - Extremities Extremities: No deformity, No tenderness to palpate - Neuro Neuro: Alert and oriented X 3, box estimator 2-12 intact, No motor deficit, No sensory deficit - Psych Psych: Normal mood, Normal affect Results - Vitals Vitals: Vital Signs - 24 hr 11/10/16 11/10/16 11/10/16 10:36 13:12 14:07 Temperature 36.1 C L Heart Rate 91 85 91 Respiratory 22 17 20 Rate Blood Pressure 115/102 H 104/70 116/80 O2 Saturation 99 95 98 Oxygen O2 Source Room air - Labs Labs: Laboratory Tests 11/10/16 11/10/16 11:10 11:10 WBC 2.7 L RBC 2.99 L Hgb 9.4 L Hct 27.9 L MCV 93.1 MCH 31.5 H MCHC 33.8 RDW 19.3 H Plt Count 252 MPV 7.1 L Neut # [employer] Lymph # [employer] Trinity # [employer] Eos # [employer] Baso # [employer] Absolute Nucleated RBC [employer] Total Counted 100 Band Neuts % (Manual) 0 Neutrophils # (Manual) 1.7 Lymphocytes # (Manual) 0.5 L Monocytes # (Manual) 0.3 Eosinophils # (Manual) 0.0 Basophils # (Manual) 0.1 Nucleated RBCs [employer] Differential Comment MANUAL DIFFERENTIAL Platelet Estimate NORMAL (130-450,000) Platelet Morphology 1+ LARGE PLATELETS RBC Morph Micro Appear 2+ ANISOCYTOSIS Sodium 135 Potassium 4.1 Chloride 104 Carbon Dioxide 23 Anion Gap 8.0 BUN 12 Creatinine 0.8 Estimated GFR (MDRD) 96 Glucose 94 Calcium 8.6 Total Bilirubin 0.5 AST 32 ALT 21 Alkaline Phosphatase 114 Total Protein 6.3 L Albumin 3.1 L Globulin 3.2 Albumin/Globulin Ratio 1.0 Lipase 17 L PD MEDICAL DECISION MAKING - ED course ED course: Patient is a pleasant 66-year-old man with a history of metastatic esophageal cancer. He is here as directed by [facility] for evaluation of a worsening right-sided pleural effusion. It was last drained on the of last month so approximately 1 week ago. At that time they took 2 L off and the time before they took approximately 2 L off as well. The patient reports worsening dyspnea overnight. On examination he is a well-appearing man who is breathing comfortably at rest with normal pulse oximetry. The right lung is completely without lung sounds on auscultation and is dull to percussion. An x-ray obtained from the outside clinic shows about 60-70% obscuration of the right lung. We did not have correct staff thing for the radiologist to do a thoracentesis here at our facility so the patient agreed to have me perform the thoracentesis. The procedure was explained in detail and consent was obtained. The patient was placed in the sitting position and his back was prepped with chlorhexidine. Using ultrasound the fluid level was located and marked. Once the skin was cleansed it was anesthetized in the usual fashion. We did borrow a kit from radiology that had a smaller trocar and the safety tip needle. This trocar was advanced after incising the skin with a scalpel. Blood-tinged fluid was obtained and over time 2 L of blood-tinged fluid was removed. Because of the patient's symptoms of cough and pain we are unable to remove more fluid. The patient tolerated the procedure well and was watched for an hour or 2 afterward. We attempted to get a hold of his oncologist but were unable to do so. We did talk with the oncologist nurse who is going to report to her that the patient in general has been doing a little worse with recurrent pleural effusions, continued rectal bleeding that is going to be addressed by hemorrhoidectomy on the 12th of this month. He is also getting total brain radiation via external beam at [facility] for metastases. The patient's hemoglobin here is 9.5 down from 11 a couple months ago. Disposition: To home Clinical impression: 1. Malignant effusion right side status post thoracentesis in the emergency department Departure - Departure Disposition: 01 Home, Self Care Clinical Impression: Malignant pleural effusion Condition: Good Instructions: Effusion Pleural, ED Effusion Pleural Follow-Up: Deion Cole MD [Primary Care Provider] - Radha Mijares MD [Provider Admit Priv/Credential] -
[2016-11-10 11:34] LABS: BAND NEUTROPHILS % (MANUAL) 0 %
[2016-11-10] MEDS ORDERED: SODIUM CHLORIDE FLUSH 0.9% 10 ML SYRINGE IVP ONE (13:01)
[2016-11-10] MEDS ORDERED: HYDROmorphone 1 MG/ML SYRINGE ONE (13:01)
[2016-11-10 13:20] LABS: BASOPHILS % (MANUAL) 4 %; EOSINOPHILS % (MANUAL) 1 %; LYMPHOCYTES % (MANUAL) 19 %; NEUTROPHILS % (MANUAL) 64 %; TOTAL CELLS COUNTED 100
[2016-11-10 13:24] LABS: NP AUTO DIFFERENTIAL? YES; PLATELET ESTIMATE, MANUAL NORMAL (130-450,000) (NORMAL); PLATELET MORPHOLOGY 1+ LARGE PLATELETS (NORMAL)
[2016-11-10 13:25] LABS: NP MAN DIFFERENTIAL? NO
[2016-11-10 15:26] VITALS: BP 116/76
== END 2016-11-10 15:28 | disposition home or self-care (01) ==
LOC: ED 10:32
DX: R06.00 Dyspnea, unspecified (principal); C15.9 Malignant neoplasm of esophagus, unspecified; C78.7 Secondary malignant neoplasm of liver and intrahepatic bile duct; C79.51 Secondary malignant neoplasm of bone; C79.31 Secondary malignant neoplasm of brain; J91.0 Malignant pleural effusion; Z92.21 Personal history of antineoplastic chemotherapy
CPT/HCPCS: 32554; 36415; 71020; 80053; 83690; 85025; 99283; 99284; J1170

== ENCOUNTER 2016-11-20 12:39 | Emergency (ER) | payer MEDICARE, OTHER ==
--- NOTE | 2016-11-20 13:20 | ED Physician Documentation ---
PD HPI DYSPNEA - Stated complaint Stated Complaint: SOA - Chief complaint Chief Complaint: Resp - History obtained from History obtained from: Patient, Family - History of Present Illness Timing - onset: How many days ago (several) Timing - onset during: Exertion Timing - duration: Days Timing - details: Gradual onset Pain level max: 4 Pain level now: 3 Improved by: Rest, Other (Thoracentesis) Worsened by: Exertion Associated symptoms: No: Fever, Wheezing, Palpitations, Diaphoresis, Bilateral edema, Unilateral edema Recently seen: Emergency Dept - Additional information Additional information: Patient is a 66-year-old male with a history of esophageal and lung cancer that has metastasized to the brain. Currently undergoing brain radiation, but not chemotherapy. He has had recurrent malignant pleural effusions, most recently drained 3 days ago. States has had increasing dyspnea again. [facility] has had this drained approximately 4 times in the past month and a half. Patient denies any fevers. Patient states that he does have a mild cough, clear sputum. Review of Systems Constitutional: denies: Fever, Chills GI: denies: Abdominal Pain, Nausea, Vomiting, Diarrhea Skin: denies: Rash Musculoskeletal: denies: Neck pain, Back pain Neurologic: denies: Headache PD PAST MEDICAL HISTORY - Past Medical History Cardiovascular: None Respiratory: None, Other Neuro: None Endocrine/Autoimmune: None GI: GERD, Hiatal hernia, Colon polyps, Hemorrhoids : None HEENT: None Psych: Panic attacks Musculoskeletal: Chronic back pain Derm: None - Past Surgical History Past Surgical History: Yes General: Colonoscopy Ortho: Shoulder arthroplasty - Present Medications Home Medications: Ambulatory Orders Medication Instructions Recorded Confirmed Pantoprazole [Protonix] 40 mg PO BID 02/02/16 11/20/16 Enoxaparin [Lovenox] 120 mg SQ DAILY 03/22/16 11/20/16 HYDROmorphone [Dilaudid] 2 - 4 mg ORAL Q4HR PRN 08/23/16 11/20/16 Gabapentin 100 mg PO BID 09/06/16 11/20/16 guaiFENesin/CODEINE [Robitussin AC] 5 - 10 ml PO Q4HR PRN 11/02/16 11/20/16 Acetaminophen [Tylenol] 650 mg pe PO PRN PRN 11/10/16 11/20/16 Memantine [Namenda] 5 mg PO DAILY 11/16/16 11/20/16 - Allergies Allergies/Adverse Reactions: Allergies Allergy/AdvReac Type Severity Reaction Status Date / Time No Known Drug Allergies Allergy Verified 09/27/16 17:38 - Social History Does the pt smoke?: No Smoking Status: Never smoker Does the pt drink ETOH?: No Does the pt have substance abuse?: No - POLST Patient has POLST: Yes PD ED PE NORMAL - Vitals Vital signs reviewed: Yes - General General: Alert and oriented X 3, No acute distress, Well developed/nourished - HEENT HEENT: PERRL, Moist mucous membranes - Neck Neck: Supple, no meningeal sign - Cardiac Cardiac: RRR, Strong equal pulses - Respiratory Respiratory: No respiratory distress, Other (Diminished breath sounds on the right side.) - Abdomen Abdomen: Soft, Non tender, Non distended - Derm Derm: Warm and dry, No rash - Extremities Extremities: No edema - Neuro Neuro: Alert and oriented X 3 - Psych Psych: Normal mood, Normal affect Results - Vitals Vitals: Vital Signs - 24 hr 11/20/16 12:42 Temperature 36.2 C L Heart Rate 92 Respiratory 22 Rate Blood Pressure 126/74 O2 Saturation 97 Oxygen O2 Source Room air - Rads (name of study) cxr Radiology: Prelim report reviewed, EMP read contemporaneously PD MEDICAL DECISION MAKING - ED course Complexity details: reviewed old records, reviewed results, re-evaluated patient , considered differential, d/w patient, d/w family, d/w economic consultant (Dr. Ayoub ) ED course: Patient is a 66-year-old male who presents to the emergency department with recurrent pleural effusions. Is scheduled to have hemorrhoid surgery tomorrow with Dr. Ayoub, therefore Dr. Ayoub was consulted and will change this to either a Pleurx or pleurodesis. Patient is not in acute respiratory distress at this time. Patient will follow-up tomorrow for surgery. Patient counseled regarding signs and symptoms for which I believe and urgent re- evaluation would be necessary. Patient with good understanding of and agreement to plan and is comfortable going home at this time This document was made in part using voice recognition software. While efforts are made to proofread this document, sound alike and grammatical errors may occur. Departure - Departure Disposition: 01 Home, Self Care Clinical Impression: Pleural effusion Condition: Good Instructions: ED Effusion Pleural Follow-Up: Lion Ayoub MD [Provider Admit Priv/Credential] - Tomorrow Comments: Follow up tomorrow as directed by Dr. Ayoub today
--- NOTE | 2016-11-20 13:42 | XRAY Preliminary Report ---
Exam: XR Chest 2 View PA/LAT IMPRESSION: 1. Moderate right and small left pleural effusions appear similar to previous. [facility] SITE ID: [id number]
--- NOTE | 2016-11-20 13:45 | XRAY Report ---
EXAM: CHEST RADIOGRAPHY EXAM DATE: 11/20/2016 01:31 PM. CLINICAL HISTORY: Dyspnea. COMPARISON: 11/10/2016. TECHNIQUE: 2 views. FINDINGS: Lungs/Pleura: There is a moderate-sized right pleural effusion. There is increased density in the low er right lung consistent with atelectasis, appearing similar to previous. There is mild blunting of t he left costophrenic angle consistent with a small left pleural effusion. Mediastinum: Trachea is midline. Heart size without significant change. Left-sided Port-A-Cath appear s unchanged in position. Other: None. IMPRESSION: 1. Moderate right and small left pleural effusions appear similar to previous. [facility] Referring Provider Line: [phone] SITE ID: [id number]
[2016-11-20 15:28] VITALS: BP 111/70
--- NOTE | 2016-11-21 00:56 | SURGERY HX AND PHYSICAL(T) ---
Surgical History & Physical - PMH/PSH/Social Hx Does the pt have a hx of MRSA?: No Neurological History: None Eyes, Ears, Nose, Throat: None Cardiovascular: None Respiratory: None, Other Skin: None Endocrine/Autoimmune: None Gastrointestinal: GERD, Hiatal hernia, Colon polyps, Hemorrhoids Urinary: None Musculoskeletal: Chronic back pain Blood Disorders: None Psychiatric: Panic attacks General: Colonoscopy Orthopedic: Shoulder arthroplasty Smoking Status: Never smoker Does the pt drink ETOH?: No Frequency: Daily Does the pt have substance abuse?: No - Home Meds and Allergies Home Medications: Pantoprazole [Protonix] 40 mg PO BID 02/02/16 Enoxaparin [Lovenox] 120 mg SQ DAILY 03/22/16 HYDROmorphone [Dilaudid] 2 - 4 mg ORAL Q4HR PRN 08/23/16 Gabapentin 100 mg PO BID 09/06/16 guaiFENesin/CODEINE [Robitussin AC] 5 - 10 ml PO Q4HR PRN 11/02/16 Acetaminophen [Tylenol] 650 mg pe PO PRN PRN 11/10/16 Memantine [Namenda] 5 mg PO DAILY 11/16/16 Allergies/Adverse Reactions: Allergies Allergy/AdvReac Type Severity Reaction Status Date / Time No Known Drug Allergies Allergy Verified 09/27/16 17:38 - Vital Signs Heart Rate: 92 Blood Pressure: 111/70 Temperature: 36.2 C Respiratory Rate: 16 O2 Saturation: 95 Weight (kg): 70.76 kg Height: 1.7 m - Patient Review Patient Review: Problems were reviewed with the patient during this visit. Medications were reviewed with the patient during this visit. Allergies were reviewed this patient during this visit. Pertinent Tests Reviewed: All pertitent test for this patient were reviewed. - Assessment & Plan Assessment and Plan: This very pleasant 66-year-old male initially came to my office in consultation by Dr. Maximiliano Cole for evaluation and treatment of his hemorrhoids. He was seen on October 26. At that time and even during the discussion today the concern was for bleeding from his hemorrhoids. His hemorrhoids are large enough that he has to manually reduce them. He has been told that due to the risk of bleeding hemorrhoids need to be taking care of prior to the instillation of the most recently recommended chemotherapeutic regimen. At least interesting to me is the fact that there is a concern about bleeding yet he remains on blood thinners. At any rate I was called to the emergency room by Dr. Earl Coats and as the patient was brought in with recurrent and persistent shortness of breath. The reason for this is the metastatic nature of his cancer. His metastatic to the liver, clearly chest wall, and brain. Despite this the patient states that he still thinks he has at least 6 months to a year to live. I tried telling him in the nicest way possible that I thought this was a bit optimistic when the patient persisted I did not correct him. Now he has had ongoing pleural effusions that have made him short of breath and the question posed to me by Dr. Chris Coats was that would not be more important to take care of his shortness of breath rather than his hemorrhoids tomorrow. As I explained to the patient hemorrhoids are unlikely to kill him but worsening and persistent pleural effusions although may not kill him will certainly make him more miserable than hemorrhoids. He vocalized an understanding. Allergies: None. Current Meds: TESSALON PERLES 100 MG CAPS (BENZONATATE) Take one capsule by mouth three times daily as needed for cough * GABAPENTIN 100 MG CAPS (GABAPENTIN) Take one capsule by mouth twice daily DILAUDID 2 MG TABS (HYDROMORPHONE HCL) Take one tablet by mouth twice daily as needed for pain LOVENOX 120 MG/0.8ML SC SOLN (ENOXAPARIN SODIUM) Inject 120mg subcutaneously daily PANTOPRAZOLE SODIUM 40 MG ORAL TBEC (PANTOPRAZOLE SODIUM) One tablet orally twice a day Past Medical History: Esophageal Cancer Remote hx of L2 comp fx. Past Surgical History: Resection cyst in lip Vasectomy shoulder Family History Summary: Father (biol.) - Has a father - Dementia - Entered On: 04/15/2014 Mother (biol.) - Has a mother - Alzheimer's - Entered On: 10/26/2016 General Comments - FH: Father: age 80; dementia,OA knees Mother: Alive, Alzheimer's, OA hips Brother: age 61, EtOH Daughter: DDD L-spine Risk Factors: Smoked Tobacco Use: Former smoker Cigarettes: Yes -- 1 pack(s) per day, Pack-years: 7 Year started: 1968 Years smoked: 7 Year quit: 1975 Years Since Last Quit: 41 Smokeless Tobacco Use: Never Tobacco Use Comments: quit 1976 Passive smoke exposure: no Drug use: no HIV high-risk behavior: no Caffeine use: 2 drinks per day Alcohol use: yes Type: beer Drinks per day: 1 Exercise: yes Times per week: 3 Type of Exercise: walking Seatbelt use: 100 % Sun Exposure: rarely Family History Risk Factors: Family History of WI in females < 65 years old: no Family History of WI in males < 55 years old: no Review of Systems Surprisingly review of systems reveals very few positives despite the advanced nature of his disease. Physical Exam Evaluated in Bed 2 at [facility] Emergency Department General: 66-year old cachectic male, appears stated age, well developed, well nourished Vitals: Please refer to nurse's notes. HEENT: Normocephalic, atraumatic, extraocular movement intact, mucous membranes pink and moist, sclera anicteric and not injected, more white than carmichael hair, male pattern baldness Neck: Supple without pain on palpation, mass or bruit Cardiac: Regular rate and rhythm without rub, gallop, or murmur Chest: Clear to auscultation bilaterally Abdomen: Soft, nontender, normoactive bowel sounds, no hepatomegaly, no splenomegaly Genitourinary: Deferred Rectal: Deferred Extremities: No gross neurovascular problem, no clubbing, cyanosis or edema Gait: No gross motor deficit Psychiatric: Alert and oriented to person place and time, asks and answers questions appropriately, mood and affect appropriate Assessment and Plan: We discussed the possibilities of placing a Pleurx catheter versus placing a chest tube operatively draining the effusion and then performing a talc pleurodesis. I explained that the more permanent choice would be to place the chest tube and then the talc pleurodesis. I explained that this will require at least a 3 day hospitalization. One day to drain the effusion, place the talc the next day and move the patient so we get good coverage of the pleura with the talc and then place the chest tube to suction and wait for the lung to adhere. With the adhesion, I explect that the chance that he would have a recurrent symptomatic pleural effusion on the right would be the lowest it could be. The patient and his indicated that this is the way they would like to proceed. The procedure is then then tube thoracostomy on the left for the instillation of talc for pleurodesis. The proccedure should be done in the operating room with the placement of a double lumen endotracheal tube to see whether we could deflate the lung and see if there are any adhesions or loculated fluid collections that could be released. If the patient cannot tolerate having his lung deflated then I will simply place the chest tube(s). To be clear this will take at least 3 days in the hospital (possibly longer) and the patient and his are aware and in agreement. The risks including but not limited to infection, bleeding, and were fully explained to the patient and his and all questions were fully answered. Verbal and written consent was obtained. The patient in preparation for his surgery will be nothing by mouth, receive a soap water shower, and receive 2 g of Ancef preoperatively for prophylaxis against surgical infection. I also asked the patient to let me know if there is any way we can make his stay at [facility] more comfortable and he stated that he would let me know. We had a rather chana discussion regarding his disease and his disease process. It is clear that I think he has less time to live than he does. We talked about his advanced directives. We talked about the fact that it does not make sense that he is on blood thinners he had his oncologist is concerned about bleeding hemorrhoids. If the concern was for bleeding my recommendation would be to stop the blood thinners first and foremost. The patient tells me that his hemorrhoidal bleeding is sporadic intermittent and not significant but when they asked him a question of whether or not he have bleeding hemorrhoids he answered truthfully. He feels that the doctors that asked the question read more into his answer than they should have. Almost 60 minutes of [id number] time was spent with the patient the majority of which was spent in discussion and in coordination of his care Jad disclaimer: This document was created in part using voice recognition technology. Because of the inherent limitations of the system ([employer]'s [employer] user manual states that the licensee understands that speech recognition is a statistical process and that recognition errors are inherent in the process), occasional same sounding word substitutions and grammatical errors do occur and persist despite proofreading. Please read this document for context.
== END 2016-11-20 15:28 | disposition home or self-care (01) ==
LOC: ED 12:39
DX: J90 Pleural effusion, not elsewhere classified (principal); C34.90 Malignant neoplasm of unspecified part of unspecified bronchus or lung; C78.89 Secondary malignant neoplasm of other digestive organs; C79.31 Secondary malignant neoplasm of brain; K21.9 Gastro-esophageal reflux disease without esophagitis; Z86.010 Personal history of colon polyps
CPT/HCPCS: 71020; 99283; 99284

== ENCOUNTER 2016-11-21 07:22 | Inpatient (IN) | payer MEDICARE, OTHER ==
[2016-11-21] MEDS ORDERED: SODIUM CHLORIDE 0.9% 0 ML ONE (07:49)
[2016-11-21] MEDS ORDERED: SODIUM CHLORIDE FLUSH 0.9% 10 ML SYRINGE IVP ONE (07:52)
[2016-11-21] MEDS ORDERED: LACTATED RINGERS 1,000 ML IV ONE ×3 (08:00→12:02)
[2016-11-21] MEDS ORDERED: ceFAZolin 2 GM/50 ML 50 ML IV ONE (09:39)
[2016-11-21] MEDS ORDERED: LIDOCAINE 1%-EPI 1:100000 20 ML MDV SUBQ ONE ×2 (10:32)
[2016-11-21] MEDS ORDERED: ceFAZolin 2 GM/50 ML BAG IV ONE (11:05)
[2016-11-21] MEDS ORDERED: ONDANSETRON 4 MG/2 ML VIAL IVP ONE (11:05)
[2016-11-21] MEDS ORDERED: fentaNYL 100 MCG/2 ML VIAL IVP ONE (11:05)
[2016-11-21] MEDS ORDERED: KETAMINE 500 MG/10 ML VIAL IVP ONE (11:05)
[2016-11-21] MEDS ORDERED: MIDAZOLAM 2 MG/2 ML VIAL IVP ONE (11:05)
[2016-11-21] MEDS ORDERED: PHENYLEPHRINE 10 MG/ML VIAL IV ONE (11:05)
[2016-11-21] MEDS ORDERED: PROPOFOL 200 MG/20 ML VIAL IVP ONE (11:05)
[2016-11-21] MEDS ORDERED: DEXAMETHASONE 4 MG/ML VIAL IVP ONE (11:05)
[2016-11-21] MEDS ORDERED: KETOROLAC 30 MG/ML VIAL IVP ONE (11:05)
[2016-11-21] MEDS ORDERED: LIDOCAINE-MPF 2% 5 ML VIAL IM ONE (11:05)
--- NOTE | 2016-11-21 11:12 | OPERATIVE REPORT ---
Operative Report - General Procedure Date: 11/21/16 Planned Procedure: RIGHT tube thoracostomy and pleurodesis Pre-Op Diagnosis: Recurrent symptomatic malignant pleural effusion Procedure Performed: RIGHT tube thoracostomy x2 with drainage of large malignant pleural effusion Post Op Diagnosis: Same - Procedure Note Primary Surgeon: Lion Ayoub MD Anesthesia Provider: Jose Beyer Anesthesia Technique: Local (30 mL 1/2% marcaine with epinephrine), MAC IV Fluids (mL): 900 Estimated Blood Loss (mL): 5 Drain/Tube Type: Other (28 Fr chest tube posteriorly and 32 Fr right angled chest tube anteriorly. NOTE: 2600 mL of clear blood tinged fluid removed from chest with placement of tubes) Complications: None. - Other Other Information/Narrative: OPERATIVE DESCRIPTION/REPORT: After verbal and written informed consent was obtained detailing the risks of infection, bleeding with all of its risks including transfusion, and the patient was brought to the operative suite and placed in the supine position on the operating room table. Monitoring devices were applied along with TEDs and pneumatic compressive stockings. Care was taken to avoid pressure points. Prophylactic antibiotics were given. An adequate level of sedation/anesthesia was established by Jose Beyer. The RIGHT chest was then prepped with ChloraPrep and draped in a sterile fashion. A "time in" then confirmed that the paitient was identified with 3 identifiers (name, date and medical record number), the history and physical was in the chart, the signed consent confirming the procedure was in the chart, the patient was in the correct position, the aforementioned prophylactic measures were in place or given, we had the correct personnel and equipment to complete the procedure and that anesthesia, surgery and nursing were given an opportunity to express any concerns. After anesthetizing the skin and subcutaneous tissues with 1/2% marcaine with epinephrine, the initial incision was at the mid-axillary line at the 7th interspace. Blunt dissection between the ribs was accomplished with a peon. I elected not to perform thoracoscopy as this recurrent effusion was clearly due to malignancy. Through the posterior thoracotomy hole was placed a straight 28 Fr chest tube under direct vision and directed to the apex. With the placement This was secured at the skin level with a 2-0 silk suture that was Derek- sandaled about the drain (measurement 14 cm). I placed a 32 Fr right angled chest tube in an selene-medial thoracotomy hole, also anesthetized with 1/2% marcaine with epinephrine, and directed the tip of the chest tube down toward the diaphragm. This was secured at the skin level with a 2-0 silk suture that was Derek-sandaled about the drain (measurement 14 cm). Both chest tubes were secured to separate Pleurevacs and placed on water seal. Both Pleurevacs showed good repiratory variation. The surgical count of instruments, needles and sponges was reported as correct twice. Sterile surgical dressings were applied. The patient was then awakened from anesthesia , and having tolerated the procedure well, was transported to the recovery room. No complications were encountered. A "time out" confirmed the operation performed, the fluids given, the estimated blood loss and anesthesia, surgery and nursing were given an opportunity to express any concerns. A chest xray was ordered in PACU.
[2016-11-21] MEDS ORDERED: HYDROcod/ACETAM 5/325 MG TABLET PO PRN (11:35)
--- NOTE | 2016-11-21 12:11 | XRAY Report ---
FRONTAL CHEST: 11/21/2016 CLINICAL INDICATION: Post-op chest tubes. COMPARISON: 11/20/2016 FINDINGS: Frontal view of the chest demonstrates a normal cardiac silhouette. Two right-sided chest tubes are in place, one terminating at the base and one terminating at the apex. There is a right p neumothorax present, with the majority of it at the right base, measuring approximately 3 cm. Left a telectasis and likely trace effusion is present. No left pneumothorax. Left subclavian port is stab le. IMPRESSION: TWO RIGHT-SIDED CHEST TUBES IN PLACE. LIKELY PARTIALLY LOCULATED RIGHT PNEUMOTHORAX AT THE RIGHT BASE. JOB #: [id number] EXT JOB #:[id number]
[2016-11-21] MEDS: ACETAMINOPHEN 1,000 MG/100 ML 100 ML IV SCH ×3 (12:59→23:48)
[2016-11-21] MEDS: SODIUM CHLORIDE 0.9% 1,000 ML IV SCH ×2 (12:59→23:48)
[2016-11-21] MEDS: SODIUM CHLORIDE FLUSH 0.9% 10 ML SYRINGE IVP SCH ×2 (12:59→20:05)
[2016-11-21] MEDS: HYDROmorphone 1 MG/ML CARPUJECT IVP PRN ×3 (17:37→22:02)
[2016-11-21] MEDS: ceFAZolin 2 GM/50 ML 50 ML IV SCH (17:53)
[2016-11-21] MEDS ORDERED: ONDANSETRON 4 MG/2 ML VIAL IVP PRN (19:25)
[2016-11-21] MEDS: SODIUM CHLORIDE FLUSH 0.9% 10 ML SYRINGE IVP PRN (22:02)
[2016-11-21] MEDS: oxyCODONE 5 MG TABLET PO PRN (23:48)
[2016-11-22] MEDS: HYDROmorphone 1 MG/ML CARPUJECT IVP PRN ×6 (00:22→20:20)
[2016-11-22] MEDS: ceFAZolin 2 GM/50 ML 50 ML IV SCH (01:33)
[2016-11-22 05:40] LABS: BASOPHILS % (AUTO) 0.5 %; EOSINOPHILS # (AUTO) 0.1 10^3/uL (0.0-0.7); EOSINOPHILS % (AUTO) 1.5 %; HCT - HEMATOCRIT 27.5 % (42.0-52.0); HGB - HEMOGLOBIN 9.1 g/dL (14.0-18.0); LYMPHOCYTES # (AUTO) 0.5 10^3/uL (1.5-3.5); LYMPHOCYTES % (AUTO) 5.5 %; MEAN CORPUSCULAR HEMOGLOBIN 30.4 pg (27.0-31.0); MEAN CORPUSCULAR VOLUME 92.1 fL (80.0-94.0); MEAN PLATELET VOLUME 7.8 fL (7.4-11.4); MONOCYTES % (AUTO) 11.9 %; NEUTROPHILS # (AUTO) 6.8 10^3/uL (1.5-6.6); NEUTROPHILS % (AUTO) 80.6 %; RED BLOOD COUNT 2.99 10^6/uL (4.70-6.10); RED CELL DISTRIBUTION WIDTH 19.5 % (12.0-15.0); UNCORRECTED WHITE BLOOD COUNT 8.5 x10^3/uL; WHITE BLOOD COUNT 8.5 x10^3/uL (4.8-10.8)
[2016-11-22 05:52] LABS: ALBUMIN/GLOBULIN RATIO 0.9 (1.0-2.2); BILIRUBIN,TOTAL 0.5 mg/dL (0.2-1.0); CALCIUM 8.5 mg/dL (8.5-10.3); CREATININE 0.9 mg/dL (0.6-1.2); POTASSIUM 4.6 mmol/L (3.5-5.0); TOTAL PROTEIN 5.2 g/dL (6.7-8.2)
[2016-11-22] MEDS: ACETAMINOPHEN 1,000 MG/100 ML 100 ML IV SCH ×3 (06:17→17:10)
[2016-11-22] MEDS: PANTOPRAZOLE 40 MG VIAL IVP SCH (06:18)
[2016-11-22] MEDS: SODIUM CHLORIDE FLUSH 0.9% 10 ML SYRINGE IVP SCH ×3 (06:18→21:04)
[2016-11-22] MEDS: POLYETHYLENE GLYCOL 3350 17 GM PACKET PO SCH (10:34)
--- NOTE | 2016-11-22 10:35 | XRAY Report ---
FRONTAL CHEST: 11/22/2016 CLINICAL INDICATION: Chest tube, followup pneumothorax. COMPARISON: 11/21/2016 FINDINGS: Frontal view of the chest demonstrates a normal cardiac silhouette. The left subclavian p ort and two right-sided chest tubes are stable. Loculated right basilar pneumothorax now measures 2. 7 cm. Left atelectasis is improving. IMPRESSION: LOCULATED RIGHT BASILAR PNEUMOTHORAX NOW MEASURING 2.7 CM. IMPROVING LEFT ATELECTASIS. JOB #: [id number] EXT JOB #:[id number]
[2016-11-22] MEDS ORDERED: TALC IX SCH (12:30)
[2016-11-22] MEDS: SODIUM CHLORIDE 0.9% 1,000 ML IV SCH (13:37)
[2016-11-22] MEDS: oxyCODONE 5 MG TABLET PO PRN ×2 (17:04→20:59)
[2016-11-22] MEDS ORDERED: guaiFENesin/CODEINE 5 ML UDC PO PRN (18:46)
[2016-11-22] MEDS ORDERED: ACETAMINOPHEN 650 MG SUPP PR PRN (18:46)
[2016-11-22] MEDS: GABAPENTIN 100 MG CAPSULE PO SCH (20:59)
[2016-11-22] MEDS: PANTOPRAZOLE 40 MG TABLET PO SCH (20:59)
--- NOTE | 2016-11-22 23:00 | PROVIDER PROGRESS NOTE ---
Subjective - General Admit Date: 11/21/16 Procedure Date: 11/21/16 Post Op Days: 1 Procedure Performed: Tube thoracostomy x2 right chest with drainage of 2600 mL of malignant pleu - Review of Systems Wound/Incisions: positive: Dressing dry and intact Drain Type: 28 Fr straight chest tube and 32 Fr right angled chest tube Drain Output Description: thin bloody fluid General: positive: No symptoms HEENT: positive: No symptoms Pulmonary: positive: Pleuritic chest pain (Right sided) Cardiovascular: positive: No symptoms Gastrointestinal: positive: No symptoms Musculoskeletal: positive: No symptoms Skin: positive: No symptoms Psychiatric: positive: No symptoms Objective - Patient Data Reviewed Vital Signs: Yes Vital Signs: Vital Signs x48h Temp Pulse Resp BP Pulse Ox 11/22/16 16:07 36.8 C 95 21 112/81 H 95 Weight: Weight 11/20/16 11/21/16 11/22/16 23:59 23:59 23:59 Weight (kg) 74.5 kg Intake & Output: Intake and Output Totals x24h 11/20/16 11/21/16 11/22/16 23:59 23:59 23:59 Intake Total 2430 3638 Output Total 405 1220 Balance 5 2418 - Lab Results Lab Results: 11/22/16 05:00 11/22/16 05:00 Other Lab Results: Lab Results x24hrs 11/22/16 11/22/16 Range/Units 05:00 05:00 WBC 8.5 (4.8-10.8) x10^3/uL RBC 2.99 L (4.70-6.10) 10^6/uL Hgb 9.1 L (14.0-18.0) g/dL Hct 27.5 L (42.0-52.0) % MCV 92.1 (80.0-94.0) fL MCH 30.4 (27.0-31.0) pg MCHC 33.0 (32.0-36.0) g/dL RDW 19.5 H (12.0-15.0) % Plt Count 217 (130-450) 10^3/uL MPV 7.8 (7.4-11.4) fL Neut # 6.8 H (1.5-6.6) 10^3/uL Lymph # 0.5 L (1.5-3.5) 10^3/uL Latimer # 1.0 (0.0-1.0) 10^3/uL Eos # 0.1 (0.0-0.7) 10^3/uL Baso # 0.0 (0.0-0.1) 10^3/uL Absolute Nucleated RBC 0.00 x10^3/uL Nucleated RBCs 0.0 /100WBC Sodium 133 L (135-145) mmol/L Potassium 4.6 (3.5-5.0) mmol/L Chloride 104 (101-111) mmol/L Carbon Dioxide 24 (21-32) mmol/L Anion Gap 5.0 L (6-13) BUN 19 (6-20) mg/dL Creatinine 0.9 (0.6-1.2) mg/dL Estimated GFR (MDRD) 84 L (>89) Glucose 105 H (70-100) mg/dL Calcium 8.5 (8.5-10.3) mg/dL Total Bilirubin 0.5 (0.2-1.0) mg/dL AST 35 (10-42) IU/L ALT 25 (10-60) IU/L Alkaline Phosphatase 177 H (42-121) IU/L Total Protein 5.2 L (6.7-8.2) g/dL Albumin 2.4 L (3.2-5.5) g/dL Globulin 2.8 (2.1-4.2) g/dL Albumin/Globulin Ratio 0.9 L (1.0-2.2) - Imaging Results Radiology Imaging: positive: Prelim report reviewed, Final report received, EMP read indepedently - Current Medications Current Medications: Current Medications Generic Name Dose Route Start Last Admin Trade Name Freq PRN Reason Stop Dose Admin Gabapentin 100 mg 11/22/16 21:00 11/22/16 20:59 Neurontin PO 100 mg BID MARYBETH Administration Hydromorphone HCl 0.5 mg 11/21/16 11:35 11/22/16 20:20 Dilaudid Inj IVP 0.5 mg Q2HR PRN Administration PAIN Sodium Chloride 1,000 mls @ 60 mls/hr 11/21/16 12:00 11/22/16 13:37 Normal Saline 0.9% IV 60 mls/hr .[id number] MARYBETH Administration Acetaminophen 100 mls @ 400 mls/hr 11/21/16 12:00 11/22/16 17:10 Ofirmev IV 400 mls/hr Q6H MARYBETH Administration Ondansetron HCl 4 mg 11/21/16 19:25 11/22/16 09:29 Zofran Inj IVP 4 mg Q6HR PRN Administration Nausea / Vomiting Oxycodone HCl 5 mg 11/21/16 19:25 11/22/16 20:59 Roxicodone PO 5 mg Q6HR PRN Administration PAIN Pantoprazole Sodium 40 mg 11/22/16 07:00 11/22/16 06:18 Protonix IVP 40 mg QDAC MARYBETH Administration Pantoprazole Sodium 40 mg 11/22/16 21:00 11/22/16 20:59 Protonix PO 40 mg BID MARYBETH Administration Polyethylene Glycol 17 gm 11/22/16 09:00 11/22/16 10:34 Miralax PO 17 gm DAILY MARYBETH Administration Sodium Chloride 10 ml 11/21/16 11:35 11/21/16 22:02 Normal Saline Flush 0.9% IVP 10 ml PRN PRN Administration NEEDED PER PROVIDER ORDERS Sodium Chloride 10 ml 11/21/16 14:00 11/22/16 21:04 Normal Saline Flush 0.9% IVP Not Given Q8HR MARYBETH - Physical Exam Wound/Incisions: positive: Dressing dry and intact, Other (Cachetic.) General Appearance: positive: Mild distress (Due to pleuritic pain.) Eyes Bilateral: positive: No lid inflammation, Conjunctivae nml, No scleral icterus Neck: positive: Trachea midline Respiratory: positive: Other (Rub on right anteriorly.) Cardiovascular: positive: Regular rate & rhythm Abdomen: positive: Non-tender Skin: positive: Pallor Extremities: positive: Nml appearance Neurologic/Psychiatric: positive: Oriented x3 Impression/Plan - Problem List Problem List: D1 s/p tube thoracostomy 2 to right chest with drainage of over 2600 mL of malignant pleural effusion Today I performed the pleurodesis instilling talc and doxycycline into the patient's right chest through both chest tubes. The patient tolerated this well. Both tubes were then clamped for 2 hours and the patient placed in numerous positions to try and get good coverage of the pleura with the talc. The chest tubes were then placed to suction. The patient was restarted on his regular medications. I ordered a soft diet as he has some difficulty with pain in his esophagus with regular food. This is of course due to his esophageal carcinoma. I will place the patient on suction for at least 24 hours and recheck a chest x-ray in the morning. He does have a small pneumothorax at the base which appears loculated and does not appear to be resolving but hopefully will not pose a problem with symptomatic relief of his dyspnea. I went over the expected postoperative course of at least 24 and may be 48 hours of suction followed by 24 hours of waterseal and if lung remains up then removal of the chest tubes. He vocalized an understanding. I have had a rather chana discussion with the patient regarding his mortality. He states that he understands that he is going to but thinks that he has another 6 months to 1 year ahead of him. I explained to him that I am a little bit less optimistic with the extensive nature of his cancer.
[2016-11-23] MEDS: HYDROmorphone 1 MG/ML CARPUJECT IVP PRN ×3 (00:22→17:37)
[2016-11-23] MEDS: ACETAMINOPHEN 1,000 MG/100 ML 100 ML IV SCH ×5 (00:43→23:33)
[2016-11-23 01:37] LABS: TROPONIN I < 0.04 ng/mL (<0.49)
[2016-11-23] MEDS: IOPAMIDOL-300 100 ML VIAL IVP ONE (02:28)
[2016-11-23] MEDS: PIPERACILLIN/TAZOBACTAM 3.375 GM in SODIUM CHLORIDE 0.9% MINIBAG 100 ML IV SCH ×4 (02:41→20:58)
[2016-11-23] MEDS: oxyCODONE 5 MG TABLET PO PRN (03:00)
--- NOTE | 2016-11-23 04:06 | CT Preliminary Report ---
Exam: CT Chest Angio (PE) IMPRESSION: 1. No evidence of pulmonary embolism. 2. Medium-sized left-sided pleural effusion, new from the prior CT. There is a medium-sized loculated appearing right-sided basilar pneumothorax. Small amount of residual right basilar fluid. There are 2 right-sided chest tubes. Moderate amount of subcutaneous emphysema about the right aspect of the ch est wall. 3. Scattered small pulmonary metastases relatively unchanged. 4. There is medium peribronchial and basilar consolidation within the right lower lobe. This may be d ue to infection, aspiration, or atelectasis. Concurrent lymphangitic carcinomatosis difficult to excl ude with certainty. 5. Subsegmental atelectasis and/or scarring within the right middle lobe and right upper lobe. Left l ower lobe consolidation, likely compressive atelectasis. 6. Scattered small vertebral metastases again seen. [facility] SITE ID: [id number]
--- NOTE | 2016-11-23 04:23 | CT Report ---
EXAM: CT ANGIOGRAM CHEST EXAM DATE: 11/23/2016 02:28 AM. CLINICAL HISTORY: Sudden onset dyspnea. COMPARISON: Radiograph 11/20/2016, 11/22/2016, 11/10/2016; CT chest 08/02/2016 TECHNIQUE: Routine helical imaging was performed through the chest in the pulmonary arterial phase. I V Contrast: 100 mL Isovue 300. Reconstructions: Coronal 3-D MIP reconstructions.Sagittal and coronal. In accordance with CT protocol optimization, one or more of the following dose reduction techniques w ere utilized for this exam: automated exposure control, adjustment of mA and/or KV based on patient s ize, or use of iterative reconstructive technique. FINDINGS: Pulmonary Arteries: There is adequate opacification through the segmental arteries. No evidence for a cute or chronic pulmonary emboli. Lungs and Pleura: Two right-sided chest tubes are present. There is a small to medium right sided pne umothorax. There is a trace amount of right-sided pleural fluid. Right-sided pleural high density may be due to pleurodesis. Pleural calcification from chronic infection difficult to exclude with certai nty. There is a medium-sized left-sided pleural effusion, new from the prior exam. Scattered small me tastatic foci, left greater than right are again seen. There is also parabronchial as well as depende nt consolidation within the right lower lobe. Small dependent consolidation within the left lower lob e. Central Airways: Visualized central airways are without suspicious filling defects. Chest Wall: There is a moderate amount of right-sided chest wall subcutaneous emphysema. Multifocal s cattered vertebral metastases noted. Thyroid: No significant abnormality. Mediastinum: Increased number of scattered small mediastinum lymph nodes are present, not considered pathologic based on size criteria. These are nonspecific. Heart: Normal in size. No significant pericardial effusion. Aorta: Normal caliber. Upper Abdomen: Multiple hepatic metastatic foci are seen. Partially visualized IVC filter. Indistinct stranding around the pancreas head, difficult to characterize. Bones: No suspicious bony lesions evident. Multifocal scattered vertebral metastases. IMPRESSION: 1. No evidence of pulmonary embolism. 2. Medium-sized left-sided pleural effusion, new from the prior CT. There is a medium-sized loculated appearing right-sided basilar pneumothorax. Small amount of residual right basilar fluid. There are 2 right-sided chest tubes. Moderate amount of subcutaneous emphysema about the right aspect of the ch est wall. 3. Scattered small pulmonary metastases relatively unchanged. 4. There is medium peribronchial and basilar consolidation within the right lower lobe. This may be d ue to infection, aspiration, or atelectasis. Concurrent lymphangitic carcinomatosis difficult to excl ude with certainty. 5. Subsegmental atelectasis and/or scarring within the right middle lobe and right upper lobe. Left l ower lobe consolidation, likely compressive atelectasis. 6. Scattered small vertebral metastases again seen. [facility] Referring Provider Line: [phone] SITE ID: [id number]
[2016-11-23] MEDS: PANTOPRAZOLE 40 MG VIAL IVP SCH (05:37)
[2016-11-23] MEDS: SODIUM CHLORIDE FLUSH 0.9% 10 ML SYRINGE IVP SCH ×3 (05:38→17:35)
--- NOTE | 2016-11-23 06:03 | CONSULTATION NOTE ---
DATE OF CONSULTATION: 11/21/2016 00:00:00 PHYSICIAN REQUESTED CONSULTATION: Consultation was requested by the surgeon, Dr. Lion Ayoub. REASON FOR CONSULTATION: To evaluate the patient during the on-call overnight hours for worsening dyspnea and tachycardia. 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 The patient had been on chemotherapy and initially was referred to Dr. Ayoub by his oncologist to undergo hemorrhoid surgery, given the fact that the chemotherapy increased bleeding risk. Subsequently, the patient was found with malignant right-sided pleural effusion and was admitted to [facility] on 11/21 to undergo chest tube placement and talc pleurodesis for the malignant pleural effusion. The patient received chest tubes on 11/21, 2 chest tubes on the right side, and subsequently had talc pleurodesis on 11/22. Prior to the procedure, he had a right basilar pneumothorax, which appeared loculated and measured about 3 cm. Subsequently, repeat chest x-ray on the morning of 11/22 showed slight decrease in the size of the pneumothorax to 2.7 cm. Reportedly, the patient had been hemodynamically stable following the procedure. I was called by nurses and subsequently by Dr. Ayoub overnight shortly after midnight due to change in this patient's condition. The patient's heart rate increased from the 90s to 140s. His blood pressure remained stable at 130/70. The patient also increased his oxygen requirement from 2 liters nasal cannula, requiring 8 liters oxygen via facemask. During my bedside exam, the patient was with clear mentation. He had increased work of breathing, with respiratory rate in the mid 20s to low 30s. The patient complained of dyspnea, but did not particularly complain of chest pain other than discomfort related to chest tube. Dr. Ayoub asked me to evaluate this patient for possible cardiac issues , if there would be pneumothorax or other issues with a chest tube, then obviously the on-call surgeon will need to be notified who is Dr. Zachariah norwodo. Dr. Ayoub also mentioned this patient's CODE STATUS issues and he told me the patient requested to be FULL CODE. Subsequently, I talked to the patient and it seems that the patient has a somewhat questionable CODE STATUS. As far as the patient is unsure whether he would want to be FULL CODE or have LIMITED CODE STATUS and currently in the medical record a DO NOT RESUSCITATE order was documented. The patient confirms that he did sign a DO NOT RESUSCITATE order; however, subsequently he was unsure and kept changing his mind. Regarding other issues for the esophageal cancer, the patient had been on soft diet. Due to invasive procedure, his Lovenox was held. I looked at the chart and it seems the patient did not receive Lovenox in the morning. In the past, he received therapeutic anticoagulation coverage with subcutaneous Lovenox, has history of DVT. PAST MEDICAL HISTORY 1. Advanced metastatic esophageal cancer status post chemotherapy. 2. 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 3. History of lumbar compression fracture. 4. Hemorrhoids/history of rectal bleeding. 5. Gastroesophageal reflux. 6. History of deep vein thrombosis/on therapeutic Lovenox. MEDICATIONS: Reviewed per electronic medical record. REVIEW OF SYSTEMS: The patient complained of dyspnea. He also complained of fear of dying. On complete 10-point review, there were no additional positives. FAMILY HISTORY: Reviewed, noncontributory. SOCIAL HISTORY: Reviewed. The patient is a nonsmoker, nondrinker. PHYSICAL EXAMINATION VITAL SIGNS: Heart rate between 120 and 140, blood pressure 130/70, respiratory rate mid 20s to low 30s. Oxygen saturation 95% on 8 liters OxyMask. GENERAL: The patient is a well-developed, thin, frail male who had respiratory distress. RESPIRATORY: crackles, mostly above the right hemithorax, decreased air entry and increased respiratory rate. No wheezing. CARDIOVASCULAR: S1, S2 regular tachycardia. ABDOMEN: Soft, benign, nontender. Bowel tones hypoactive. LYMPH: Pedal edema, left lower extremity more swollen than the right. NEUROLOGIC: Alert, oriented, nonfocal. PSYCH: Cooperative. SKIN: Mild pallor and flushed face. ASSESSMENT/PLAN/RECOMMENDATIONS 1. Hypoxic respiratory failure, increased oxygen requirement together with tachycardia in a patient who has a chest tube and recent pleurodesis secondary to malignant pleural effusion. a. I recommended a stat CT scan of the chest to check on the chest tube position and possibly developing pneumothorax. b. I ordered a cardiac workup, which included an EKG. I reviewed EKG at the bedside, and there was sinus tachycardia with nonspecific changes. No acute ischemia. Ordered cardiac markers, which are negative. Therefore, acute cardiac ischemia is unlikely to cause the patient's decompensation. c. Pulmonary embolism should be considered as the patient had history of DVT and had been off anticoagulation for a day due to invasive procedure. The CT scan of the chest was ordered per PE protocol and we will see whether there is pulmonary embolism. 2. History of both bleeding and thromboembolic complications, which complicate this patient's already frail condition and difficult background. Notably, the patient has had history of GI bleed. Plus, he has history of DVT, for which he was anticoagulated. 3. Somewhat complicated CODE STATUS. For now listed as DO NOT RESUSCITATE. The patient is hesitant and leaning towards changing his mind to be treated according to FULL CODE. Discussion should be continued and I would recommend palliative care team to be involved. Notably, the patient has advanced disease with metastatic spread to the brain. He has malignant pleural effusions, and at the same time he has both bleeding and thromboembolic issues. Also notably, he is thin with poor nutritional status and has not much reserve. 4. Malnutrition. On soft diet for history of esophageal cancer. Would recommend a manager of disaster recovery consult at some point. 5. Metastatic esophageal cancer on chemotherapy, handled by oncologist. PLAN AND RECOMMENDATIONS 1. I ordered a stat CT scan of the chest with contrast, pending the result. Ordered basic cardiac workup, which so far returned negative. 2. Continue close monitoring of the patient. I discussed the case with Dr. Ayoub, and overnight we will contact the on-call surgeon who is Dr. Soni if there is any issue with pneumothorax or chest tube. 3. Given that the patient has a chest tube and decompensating, I would empirically cover with antibiotic and send blood cultures. I ordered Zosyn and I sent blood cultures. 4. Regarding history of DVT and anticoagulation, Dr. Ayoub already planned on restarting therapeutic Lovenox, which should start this morning. 5. I extensively discussed code status with the patient and so far I could not get a clear answer from him, whether he would want to be DO NOT RESUSCITATE OR he would want to be FULL CODE and this discussion should obviously continue, perhaps involving palliative care as well. TIME SPENT: With this consultation was 60 minutes. Thank you, Dr. Ayoub, to invite us to participate in the care of your patient. JOB #: [id number] EXT JOB #:[id number] [email or web address]
[2016-11-23] MEDS: MEMANTINE 5 MG TABLET PO SCH (09:05)
[2016-11-23] MEDS: POLYETHYLENE GLYCOL 3350 17 GM PACKET PO SCH (09:05)
[2016-11-23] MEDS: PANTOPRAZOLE 40 MG TABLET PO SCH (09:06)
[2016-11-23] MEDS: GABAPENTIN 100 MG CAPSULE PO SCH ×2 (09:06→20:58)
[2016-11-23] MEDS: ENOXAPARIN 120 MG/0.8 ML SYRINGE SUBQ SCH (09:07)
[2016-11-23] MEDS: SODIUM CHLORIDE 0.9% 1,000 ML IV SCH (09:10)
--- NOTE | 2016-11-23 10:48 | PROVIDER PROGRESS NOTE ---
Subjective - General Admit Date: 11/21/16 Procedure Date: 11/21/16 Post Op Days: 2 Procedure Performed: Tube thoracostomy x2 right chest with drainage of 2600 mL of malignant pleu - Review of Systems Wound/Incisions: positive: Dressing dry and intact, Other (Cachetic.) Drain Type: 28 Fr straight chest tube and 32 Fr right angled chest tube Drain Output Description: thin bloody fluid Approximate mls Output: Total for both = 500 mL General: positive: Other (Dry mouth and nursing states there has been decreased urine output. The patient had an episode last night they can be properly described as increased anxiety elevated heart rate. Also complaining of some scrotal swelling.) HEENT: positive: No symptoms Pulmonary: positive: Pleuritic chest pain (Right sided now with some rub and "fluttering.") Cardiovascular: positive: No symptoms Gastrointestinal: positive: No symptoms Musculoskeletal: positive: No symptoms Skin: positive: No symptoms Psychiatric: positive: No symptoms Objective - Patient Data Reviewed Vital Signs: Yes Vital Signs: Vital Signs x48h Temp Pulse Resp BP Pulse Ox 11/23/16 07:47 36.4 C L 84 22 103/68 100 11/23/16 06:22 36.4 C L 95 18 96/66 97 Weight: Weight 11/21/16 11/22/16 11/23/16 23:59 23:59 23:59 Weight (kg) 74.5 kg Intake & Output: Intake and Output Totals x24h 11/21/16 11/22/16 11/23/16 23:59 23:59 23:59 Intake Total 2430 3638 1058 Output Total 405 1220 575 Balance 2024 2418 483 - Lab Results Lab Results: 11/22/16 05:00 11/22/16 05:00 Other Lab Results: Lab Results x24hrs 11/23/16 11/23/16 11/23/16 Range/Units 01:11 01:11 01:11 Magnesium 1.9 (1.7-2.8) mg/dL Total Creatine Kinase 37 (22-269) IU/L CK-MB (CK-2) 2.0 (0.6-6.3) ng/mL Troponin I < 0.04 (<0.49) ng/mL - Current Medications Current Medications: Current Medications Generic Name Dose Route Start Last Admin Trade Name Freq PRN Reason Stop Dose Admin Enoxaparin Sodium 120 mg 11/23/16 09:00 11/23/16 09:07 Lovenox SUBQ 120 mg DAILY MARYBETH Administration Gabapentin 100 mg 11/22/16 21:00 11/23/16 09:06 Neurontin PO 100 mg BID MARYBETH Administration Hydromorphone HCl 0.5 mg 11/21/16 11:35 11/23/16 02:47 Dilaudid Inj IVP 0.5 mg Q2HR PRN Administration PAIN Sodium Chloride 1,000 mls @ 60 mls/hr 11/21/16 12:00 11/23/16 09:10 Normal Saline 0.9% IV 60 mls/hr .[id number] MARYBETH Administration Acetaminophen 100 mls @ 400 mls/hr 11/21/16 12:00 11/23/16 06:11 Ofirmev IV 400 mls/hr Q6H MARYBETH Administration Piperacillin Sod/Tazobactam 100 mls @ 200 mls/hr 11/23/16 02:00 11/23/16 09:10 Sod 3.375 gm/ Sodium Chloride IV 200 mls/hr Q6H MARYBETH Administration Memantine 5 mg 11/23/16 09:00 11/23/16 09:05 Namenda PO 5 mg DAILY MARYBETH Administration Ondansetron HCl 4 mg 11/21/16 19:25 11/22/16 09:29 Zofran Inj IVP 4 mg Q6HR PRN Administration Nausea / Vomiting Oxycodone HCl 5 mg 11/21/16 19:25 11/23/16 03:00 Roxicodone PO 5 mg Q6HR PRN Administration PAIN Pantoprazole Sodium 40 mg 11/22/16 07:00 11/23/16 05:37 Protonix IVP Not Given QDAC MARYBETH Pantoprazole Sodium 40 mg 11/22/16 21:00 11/23/16 09:06 Protonix PO 40 mg BID MARYBETH Administration Polyethylene Glycol 17 gm 11/22/16 09:00 11/23/16 09:05 Miralax PO 17 gm DAILY MARYBETH Administration Sodium Chloride 10 ml 11/21/16 11:35 11/21/16 22:02 Normal Saline Flush 0.9% IVP 10 ml PRN PRN Administration NEEDED PER PROVIDER ORDERS Sodium Chloride 10 ml 11/21/16 14:00 11/23/16 05:38 Normal Saline Flush 0.9% IVP Not Given Q8HR MARYBETH - Physical Exam Wound/Incisions: positive: Healing well, Drainage (Through chest tubes.), Other (The dressing was replaced by me. The stitches and the chest tubes are in place. The leak seen on the anterior chest tube is intrathoracic and not part of the chest tube or Pleur-evac.) General Appearance: positive: Mild distress, Other (Cachectic.) Eyes Bilateral: positive: No lid inflammation, Conjunctivae nml, No scleral icterus Neck: positive: Trachea midline Respiratory: positive: Other (Rub with inspiration, mostly right sided. Some decreased breath sounds on the left.) Cardiovascular: positive: Regular rate & rhythm Abdomen: positive: Non-tender Skin: positive: Pallor Neurologic/Psychiatric: positive: Oriented x3 Impression/Plan - Problem List Problem List: Day 2 status post tube thoracostomy 2 to the right chest and they 1 status post pleurodesis. 1) FEN The patient was instructed to drink more fluids or if this does not work, I would be prescribing increased IV fluids. 2) Prognosis Poor. The patient feels that he has 6 months to a year to live and I believe this is less. I have offered to have him meet with Alis Jameson if not from a hospice perspective from a palliative care perspective. He wishes to think about it. He knows Alis Jameson from the [facility]. I asked him if he ever saw her officially and he states no. 3) R malignant effusion Patient's is on 20 cm water suction and there is still currently leak in the anterior tube. We will continue suction until fluid output is less and hopefully leak resolves prior to consideration of waterseal. I would not waterseal him while there is an air leak. 4) L effusion CT scan done yesterday as part of his workup shows increasing left pleural effusion. There is no doubt that this is also malignant. Question whether not a left-sided chest tube should be placed. 5) Pain Pain control at this point time I believe is adequate. 6) Malnutrition I explained to him that this is protein malnutrition and it is important for him to consume more protein if he wishes to heal. Carbohydrates and fat are important but these are used primarily for energy whereas protein is used to rebuild and heal. We discussed options to increase protein in his diet including Ensure as well as protein supplements. Patient vocalized an understanding. I will see what modalities we have been our nutritional services to increase her protein in his diet.
[2016-11-23] MEDS ORDERED: SALIVA STIMULANT SPRAY 44.3 ML BOTTLE PO PRN (16:57)
[2016-11-23] MEDS ORDERED: SENNA 8.6 MG TABLET PO PRN (16:58)
[2016-11-23] MEDS ORDERED: PROCHLORPERAZINE 10 MG/2 ML VIAL IVP PRN (17:03)
[2016-11-23] MEDS: ONDANSETRON 4 MG/2 ML VIAL IVP PRN (17:36)
[2016-11-23] MEDS ORDERED: LORazepam 2 MG/ML SYRINGE IVP SCH (18:00)
[2016-11-23] MEDS: SODIUM CHLORIDE FLUSH 0.9% 10 ML SYRINGE IVP PRN (18:36)
--- NOTE | 2016-11-23 20:35 | PROVIDER PROGRESS NOTE ---
Palliative Care Follow Up - Referral Referring Provider: Dr. Lion Joaquin Time of Visit: [id number] Referral setting: Hospitalized patient Referral Reason: Goals of Care - Information Sources Records Reviewed: RN notes reviewed, Old records reviewed History obtained from: Patient, Family (Halle at bedside at time of visit) Exam limitations: No limitations - History of Present Illness Update Brief HPI Update: This is a krupa 66-year-old gentleman who continues to present with ongoing complications related to his metastatic [place] adenocarcinoma with metastases to the lung, liver, bone, and brain. He was originally diagnose in 2015. He has had multiple lines of chemotherapy, is currently on hold which has been very distressing for him. His last regimen with Taxol/ramucirumab which was on hold because of hemorrhoidal bleeding. Patient reports no further hemorrhoidal bleeding but is having constipation today. 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 He has been presented with multiple challenges, with all his recurrent ED visits for complications, has continued to remain fairly positive, with the hope to improve his quality of life but also extend his quantity of life. It has been complicated with multiple specialties involved, recurrent complications, and feeling fragmented regarding his overall treatment plan. He also had to transition to a new oncologist as Dr. Gilliland had retired. He has been admitted for pleurodesis which was performed yesterday 11/22, he did have an acute episode of respiratory distress last night, which included most likely a panic attack as well. I have met with the patient late spring, at that time we did initiate a goals of care conversation, as well as to complete a POLST, and address symptom management. Given the complexity of his ongoing complications and scheduled, the have only met intermittently, but the last visit on 11/02. At this point in time, we are revisiting his current journey, evaluating his symptoms, and further initiating further conversation in defining goals of care. Social History - Living Situation Living arrangement: At home Living Situation: With spouse/s.o. Support System: Very supportive family, muslim community and friends Medications/Allergies - Medications Active Medication List: Active Medications Acetaminophen (Tylenol) 650 mg LA PRN PRN PRN Reason: Analgesia Enoxaparin Sodium (Lovenox) 120 mg SUBQ DAILY [facility] Last Admin: 11/23/16 09:07 Dose: 120 mg Gabapentin (Neurontin) 100 mg PO BID [facility] Last Admin: 11/23/16 09:06 Dose: 100 mg Guaifenesin/Codeine Phosphate (Robitussin Ac) 5 - 10 ml PO Q4HR PRN PRN Reason: Cough Hydromorphone HCl (Dilaudid Inj) 0.5 mg IVP Q2HR PRN PRN Reason: PAIN Last Admin: 11/23/16 17:37 Dose: 0.5 mg Hydromorphone HCl (Dilaudid) 2 - 4 mg PO Q4HR PRN PRN Reason: PAIN Sodium Chloride (Normal Saline 0.9%) 1,000 mls @ 60 mls/hr IV .[id number] [facility] Last Admin: 11/23/16 09:10 Dose: 60 mls/hr Acetaminophen (Ofirmev) 100 mls @ 400 mls/hr IV Q6H [facility] Last Admin: 11/23/16 18:35 Dose: 400 mls/hr Piperacillin Sod/Tazobactam (Sod 3.375 gm/ Sodium Chloride) 100 mls @ 200 mls/ hr IV Q6H [facility] Last Admin: 11/23/16 13:43 Dose: 200 mls/hr Memantine (Namenda) 5 mg PO DAILY [facility] Last Admin: 11/23/16 09:05 Dose: 5 mg Ondansetron HCl (Zofran Inj) 4 mg IVP Q4HR PRN PRN Reason: Nausea / Vomiting Last Admin: 11/23/16 17:36 Dose: 4 mg Oxycodone HCl (Roxicodone) 5 mg PO Q6HR PRN PRN Reason: PAIN Last Admin: 11/23/16 03:00 Dose: 5 mg Pantoprazole Sodium (Protonix) 40 mg PO BIDAC [facility] Polyethylene Glycol (Miralax) 17 gm PO DAILY [facility] Last Admin: 11/23/16 09:05 Dose: 17 gm Prochlorperazine Edisylate (Compazine Inj) 10 mg IVP Q4HR PRN PRN Reason: Nausea / Vomiting Senna (Senokot) 17.2 mg PO DAILY PRN PRN Reason: Constipation Sodium Chloride (Normal Saline Flush 0.9%) 10 ml IVP PRN PRN PRN Reason: NEEDED PER PROVIDER ORDERS Last Admin: 11/23/16 18:36 Dose: 10 ml Sodium Chloride (Normal Saline Flush 0.9%) 10 ml IVP Q8HR [facility] Last Admin: 11/23/16 17:35 Dose: 10 ml Pantoprazole [Protonix] 40 mg PO BID 02/02/16 Enoxaparin [Lovenox] 120 mg SQ DAILY 03/22/16 HYDROmorphone [Dilaudid] 2 - 4 mg ORAL Q4HR PRN 08/23/16 Gabapentin 100 mg PO BID 09/06/16 guaiFENesin/CODEINE [Robitussin AC] 5 - 10 ml PO Q4HR PRN 11/02/16 Acetaminophen [Tylenol] 650 mg pe PO PRN PRN 11/10/16 Memantine [Namenda] 5 mg PO DAILY 11/16/16 - Allergies Allergies/Adverse Reactions: Allergies Allergy/AdvReac Type Severity Reaction Status Date / Time No Known Drug Allergies Allergy Verified 09/27/16 17:38 Review of Systems - Constitutional Constitutional: reports: Fatigue, Weakness, Weight loss - Eyes Eyes: reports: Corrective lenses - Ears, Nose & Throat Ears, Nose & Throat: reports: Other (dry mouth) - Cardiovascular Cariovascular: reports: Chest pain (related to the chest tubes), Exertional dyspnea, Decr. exercise tolerance - Respiratory Respiratory: reports: Cough, SOB at rest, SOB with exertion, Pleuritic pain, Other (patient has had recurrent thoracentesis; had been evaluated in August for Pleurx, had declined as hope was would resolve with treatment; unfortunately has continued to be most severe and complicating symtpom of his disease) - Gastrointestinal Gastrointestinal: reports: Constipation (no BM since Sunday, has had Miralax, no further hemmorrhoidal bleeding), Poor appetite - Musculoskeletal Musculoskeletal: reports: Muscle weakness - Integumentary Integumentary: reports: Other (chest tube exit sites with dressings) - Neurological Neurological: reports: General weakness, Other (has been bedbound with procedure ; transfer to [facility] only) - Psychiatric Psychiatric: reports: Anxiety (feeling overwhelmed with continued challenges; "has not done this before" not clear what is normal) - Endocrine Endocrine: reports: Other (no dm/hypothyroidism) - Hematologic/Lymphatic Hematologic/Lymphatic: reports: Anemia, Blood clots - All Other Systems All Other Systems: reports: Reviewed and negative Physical Examination - Vital Signs Vital Signs: Vital Signs x48h Temp Pulse Resp BP BP Pulse Ox 11/23/16 19:40 36.5 C 89 19 100/63 94 11/23/16 16:13 36.4 C L 91 20 95/62 89/56 L 97 11/23/16 13:47 93 95 11/23/16 13:01 36.6 C 95 24 101/62 97 - Physical Exam General Appearance: positive: Mild distress, Anxious Eyes Bilateral: positive: Normal inspection ENT: positive: Dry mucous membranes, Other (no s/s candidiasis) Neck: positive: Trachea midline Respiratory: positive: Other (patient limited with CT placement; difficult to take deep breath) Cardiovascular: positive: Regular rate & rhythm Abdomen: positive: Other (not examined) Skin: positive: Pallor Extremities: positive: Pedal edema (history of pedal edema; had tried lasix without success; using support hose) Neurologic/Psychiatric: positive: Oriented x3, Weakness Palliative Care - POLST Patient has POLST: Yes POLST Status: DNR, Limited Interventions Pain: Pain unchanged, Location (has mild neuropathies in fingers/toes; intermittent back pain; now with exit site chest tube; describes "discomfort" has opioid available but using iv acetaminophen) Drowsiness: Mild (1-3) Nausea: None Anxiety: Moderate (4-6) Dyspnea: Moderate (4-6) Anorexia: Mild (1-3) Constipation: Yes, Opoid induced, Unmanaged Feelings of wellbeing/Perceived Quality of Life: Worsening (distress over the delay of treatments for his cancer; the complications regarding his bleeding;) Performance Status: Patient limited only by dyspnea at home; independent after taps; bedbound currently - Palliative Care Discussion: Halle Yang [phone] is his surrogate decision maker. The patient expressing his concerns over confusion regarding CODE STATUS, he has on previous admits and currently been DNR, originally filled out POLST with DNAR/allow natural and limited in additional interventions. In his the defining of goals it was to focus on quality of life, continued to get treatment to extend quantity of life, and end-of-life a comfortable respectful . In reviewing the seriousness of his illness, it has been a long and complicated journey, for both he and Halle. We discussed DO NOT RESUSCITATE does not mean do not treat, then he can continue to have interventions such as chemotherapy, his current procedure, and ongoing radiation to address his progressive cancer. He has expressed in the past interested in even exploring clinical trials. Gently reviewed in the context of our conversation, weighing benefits and burdens of decisions as they come along, acknowledging there are limitations of what we can do as he progresses further into his journey. Reviewed the importance of support of family, relationships, and their [place] community. What I hear expressed, as the underlying concern regarding the fragmentation of his treatment plan. 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 He is currently acutely hospitalized for management of his recurrent pleural effusions , this has been his most significant component of his symptom burden cluster. He is hopeful for a more permanent answer and relief from this complication. He continues to present with progressive disease, increased symptom burden, but remains steadfast in hoping for the best. He does understand the seriousness of his illness. Recommendations/Counseling Done: 1. Constipation opiate induced. Patient has been managed at home mostly on MiraLAX, will go ahead and add senna to his regimen. It is important that he continue with soft regular bowel movements, given concern for his internal hemorrhoids and further bleeding. Followup with Dr. albarran office to recommend to senna now and to senna when necessary to repeat daily. Patient will continue on his baseline MiraLAX. 2 Dyspnea this is multifactorial in origin including his underlying lung metastases, anemia, as well as his recurrent pleural effusions. He is currently awaiting to see if the pleurocentesis will be successful. 3. Chemotherapy-induced peripheral neuropathy. Has restarted his gabapentin, does report this has been of help though it it remains somewhat problematic. 4. Dry mouth. Has try the lozenges in the past without much success. Is willing to try Biotin, which is nonformulary here. This information was relayed to surgeon. 5. Advanced care planning. Patient presents with significant anxiety, feeling overwhelmed, and concerned about the future. Readdressed concerns regarding the defining goals of care, normalized feelings of grief and loss, concern about uncertainty, and escalating anxiety. Palliative care wi'll continue to follow to assist with management of care plan, provide ongoing support, and education regarding treatment issues as well as the continuum of care. Time Spent: 45 minutes with greater than 50% of this done in counseling regarding goals of care, symptom management, management of anxiety and anticipatory guidance.
[2016-11-23] MEDS: LORazepam 0.5 MG TABLET PO PRN (23:44)
[2016-11-24] MEDS: PIPERACILLIN/TAZOBACTAM 3.375 GM in SODIUM CHLORIDE 0.9% MINIBAG 100 ML IV SCH ×4 (01:48→19:27)
[2016-11-24] MEDS: SODIUM CHLORIDE 0.9% 1,000 ML IV SCH (03:46)
[2016-11-24] MEDS: SODIUM CHLORIDE FLUSH 0.9% 10 ML SYRINGE IVP SCH ×3 (05:06→21:55)
[2016-11-24] MEDS: ACETAMINOPHEN 1,000 MG/100 ML 100 ML IV SCH ×3 (06:24→18:56)
[2016-11-24] MEDS: ENOXAPARIN 120 MG/0.8 ML SYRINGE SUBQ SCH (08:58)
[2016-11-24] MEDS: GABAPENTIN 100 MG CAPSULE PO SCH ×2 (09:00→21:41)
[2016-11-24] MEDS: POLYETHYLENE GLYCOL 3350 17 GM PACKET PO SCH (09:03)
[2016-11-24] MEDS: MEMANTINE 5 MG TABLET PO SCH (09:15)
[2016-11-24] MEDS: HYDROmorphone 1 MG/ML CARPUJECT IVP PRN ×4 (12:38→21:55)
--- NOTE | 2016-11-24 13:10 | PROVIDER PROGRESS NOTE ---
Subjective - Prog Note Date Prog Note Date: 11/24/16 Prog Note Time: 13:08 - Subjective Pt reports feeling: No change (Patient seen at bedside and states he feels about the same. no changes in chest pain or shortness of breath. He still has pain at the chest tube site. no nausea vomiting or diarrhea. pending visit with surgery) Current Medications - Current Medications Current Medications: Active Medications Generic Name Dose Route Start Last Admin Trade Name Freq PRN Reason Stop Dose Admin Acetaminophen 650 mg 11/22/16 18:46 Tylenol MT PRN PRN Analgesia Enoxaparin Sodium 120 mg 11/23/16 09:00 11/24/16 08:58 Lovenox SUBQ 120 mg DAILY [facility] Administration Gabapentin 100 mg 11/22/16 21:00 11/24/16 09:00 Neurontin PO 100 mg BID [facility] Administration Guaifenesin/Codeine Phosphate 5 - 10 ml 11/22/16 18:46 Robitussin Ac PO Q4HR PRN Cough Hydromorphone HCl 0.5 mg 11/21/16 11:35 11/24/16 12:38 Dilaudid Inj IVP 0.5 mg Q2HR PRN Administration PAIN Hydromorphone HCl 2 - 4 mg 11/22/16 18:46 Dilaudid PO Q4HR PRN PAIN Sodium Chloride 1,000 mls @ 60 mls/hr 11/21/16 12:00 11/24/16 03:46 Normal Saline 0.9% IV 60 mls/hr .[id number] [facility] Administration Acetaminophen 100 mls @ 400 mls/hr 11/21/16 12:00 11/24/16 12:01 Ofirmev IV 400 mls/hr Q6H [facility] Administration Piperacillin Sod/Tazobactam 100 mls @ 200 mls/hr 11/23/16 02:00 11/24/16 08:55 Sod 3.375 gm/ Sodium Chloride IV 200 mls/hr Q6H [facility] Administration Lorazepam 0.5 mg 11/23/16 22:21 11/23/16 23:44 Ativan PO 0.5 mg Q8H PRN Administration Anxiety Memantine 5 mg 11/23/16 09:00 11/24/16 09:15 Namenda PO 5 mg DAILY [facility] Administration Ondansetron HCl 4 mg 11/23/16 17:02 11/23/16 17:36 Zofran Inj IVP 4 mg Q4HR PRN Administration Nausea / Vomiting Oxycodone HCl 5 mg 11/21/16 19:25 11/23/16 03:00 Roxicodone PO 5 mg Q6HR PRN Administration PAIN Pantoprazole Sodium 40 mg 11/24/16 18:00 Protonix PO BIDAC [facility] Polyethylene Glycol 17 gm 11/22/16 09:00 11/24/16 09:03 Miralax PO 17 gm DAILY [facility] Administration Prochlorperazine Edisylate 10 mg 11/23/16 17:03 Compazine Inj IVP Q4HR PRN Nausea / Vomiting Senna 17.2 mg 11/23/16 16:58 Senokot PO DAILY PRN Constipation Sodium Chloride 10 ml 11/21/16 11:35 11/23/16 18:36 Normal Saline Flush 0.9% IVP 10 ml PRN PRN Administration NEEDED PER PROVIDER ORDERS Sodium Chloride 10 ml 11/21/16 14:00 11/24/16 05:06 Normal Saline Flush 0.9% IVP Not Given Q8HR [facility] Pantoprazole [Protonix] 40 mg PO BID 02/02/16 Enoxaparin [Lovenox] 120 mg SQ DAILY 03/22/16 HYDROmorphone [Dilaudid] 2 - 4 mg ORAL Q4HR PRN 08/23/16 Gabapentin 100 mg PO BID 09/06/16 guaiFENesin/CODEINE [Robitussin AC] 5 - 10 ml PO Q4HR PRN 11/02/16 Acetaminophen [Tylenol] 650 mg pe PO PRN PRN 11/10/16 Memantine [Namenda] 5 mg PO DAILY 11/16/16 Objective - Vital Signs/Intake & Output Reviewed Vital Signs: Yes Vital Signs: Vital Signs x48h Temp Pulse Resp BP BP Pulse Ox 11/24/16 12:11 36.7 C 89 18 97/61 99 11/24/16 08:55 36.6 C 94 18 108/58 L 95 11/24/16 05:46 36.7 C 94 16 101/65 96 Intake & Output: Intake & Output 11/21/16 11/22/16 11/23/16 11/24/16 23:59 23:59 23:59 23:59 Intake Total 2430 3638 3776 1428 Output Total 405 1220 1690 1825 Balance 2024 2285 3601 -948 - Objective General Appearance: positive: No acute distress, Alert Eyes Bilateral: positive: Normal inspection, PERRL, EOMI ENT: positive: ENT inspection nml, Pharynx nml, No signs of dehydration Neck: positive: Nml inspection, Thyroid nml, No JVD, Trachea midline Respiratory: positive: Chest non-tender, No respiratory distress, Other ( diminished) Cardiovascular: positive: Regular rate & rhythm, No murmur, No gallop Abdomen: positive: Non-tender, No organomegaly, No distention. negative: Guarding, Rebound Back: positive: Nml inspection Skin: positive: Color nml, No rash, Warm, Other (chest tube site with wet dressing on right flank upper) Extremities: positive: Full ROM, Nml appearance, No pedal edema Neurologic/Psychiatric: positive: Oriented x3, CN's nml (2-12), Motor nml, Sensation nml, Mood/affect nml - Lab Results Fish Bones: 11/22/16 05:00 11/22/16 05:00 - Diagnostic Imaging Diagnostic Imaging Results: positive: Prelim report reviewed Assessment/Plan - Problem List (1) Malignant pleural effusion Impression: acute. patient still has anterior and posterior chest tubes. surgery following with pallative care on consult as well. continue to follow as consult and monitoring. continue with pain medications as prescribed (2) GERD (gastroesophageal reflux disease) Impression: continue with home medications as prescribed (3) Complication of chest tube Impression: acute. surgery following with air leak of chest tube. patient saturation stable. Qualifiers: Encounter type: initial encounter Qualified Code(s): T85.9XXA - Unspecified complication of internal prosthetic device, implant and graft, initial encounter
[2016-11-24] MEDS ORDERED: IOPAMIDOL-300 100 ML VIAL ONE (18:13)
--- NOTE | 2016-11-24 18:27 | PROVIDER PROGRESS NOTE ---
Palliative Care Follow Up - Referral Referring Provider: Dr. Lion Ayoub Time of Visit: [id number] Referral setting: Hospitalized patient Referral Reason: Goals of Care - Information Sources Records Reviewed: RN notes reviewed, Old records reviewed History obtained from: Patient, Family (Halle) Exam limitations: No limitations - History of Present Illness Update Brief HPI Update: Please see 09 visit for history. 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 Currently hospitalized for treatment of recurrent pleural effusions, now awaiting removal of chest tubes after pleuordesis. Reports increased bloating with eating. On exam has taut ascitic abdomen, in review of records no recent CTs other than chest. Patient with chest tube leak, very discouraged as goal had been to resume brain radiation on Sunday, wondering and concerned about cancer continuing to progress without treatment.Patient continues with symptoms of progressive tumor burden as well as increasing symptom burden. Social History - Living Situation Living arrangement: At home Living Situation: With spouse/s.o. Support System: very supportive family, friends, and orthodoxy community Medications/Allergies - Medications Active Medication List: Active Medications Acetaminophen (Tylenol) 650 mg SD PRN PRN PRN Reason: Analgesia Enoxaparin Sodium (Lovenox) 120 mg SUBQ DAILY [facility] Last Admin: 11/24/16 08:58 Dose: 120 mg Gabapentin (Neurontin) 100 mg PO BID [facility] Last Admin: 11/24/16 09:00 Dose: 100 mg Guaifenesin/Codeine Phosphate (Robitussin Ac) 5 - 10 ml PO Q4HR PRN PRN Reason: Cough Hydromorphone HCl (Dilaudid Inj) 0.5 mg IVP Q2HR PRN PRN Reason: PAIN Last Admin: 11/24/16 16:40 Dose: 0.5 mg Hydromorphone HCl (Dilaudid) 2 - 4 mg PO Q4HR PRN PRN Reason: PAIN Sodium Chloride (Normal Saline 0.9%) 1,000 mls @ 60 mls/hr IV .[id number] [facility] Last Admin: 11/24/16 03:46 Dose: 60 mls/hr Acetaminophen (Ofirmev) 100 mls @ 400 mls/hr IV Q6H [facility] Last Admin: 11/24/16 12:01 Dose: 400 mls/hr Piperacillin Sod/Tazobactam (Sod 3.375 gm/ Sodium Chloride) 100 mls @ 200 mls/ hr IV Q6H [facility] Last Admin: 11/24/16 14:20 Dose: 200 mls/hr Lorazepam (Ativan) 0.5 mg PO Q8H PRN PRN Reason: Anxiety Last Admin: 11/23/16 23:44 Dose: 0.5 mg Memantine (Namenda) 5 mg PO DAILY [facility] Last Admin: 11/24/16 09:15 Dose: 5 mg Ondansetron HCl (Zofran Inj) 4 mg IVP Q4HR PRN PRN Reason: Nausea / Vomiting Last Admin: 11/23/16 17:36 Dose: 4 mg Oxycodone HCl (Roxicodone) 5 mg PO Q6HR PRN PRN Reason: PAIN Last Admin: 11/23/16 03:00 Dose: 5 mg [facility]oprazole [facility]) [facility] Polyethylene Glycol (Miralax) 17 gm PO DAILY [facility] Last Admin: 11/24/16 09:03 Dose: 17 gm Prochlorperazine Edisylate (Compazine Inj) 10 mg IVP Q4HR PRN PRN Reason: Nausea / Vomiting Senna (Senokot) 17.2 mg PO DAILY PRN PRN Reason: Constipation Sodium Chloride (Normal Saline Flush 0.9%) 10 ml IVP PRN PRN PRN Reason: NEEDED PER PROVIDER ORDERS Last Admin: 11/23/16 18:36 Dose: 10 ml Sodium Chloride (Normal Saline Flush 0.9%) 10 ml IVP Q8HR [facility] Last Admin: 11/24/16 14:21 Dose: Not Given Pantoprazole [Protonix] 40 mg PO BID 02/02/16 Enoxaparin [Lovenox] 120 mg SQ DAILY 03/22/16 HYDROmorphone [Dilaudid] 2 - 4 mg ORAL Q4HR PRN 08/23/16 Gabapentin 100 mg PO BID 09/06/16 guaiFENesin/CODEINE [Robitussin AC] 5 - 10 ml PO Q4HR PRN 11/02/16 Acetaminophen [Tylenol] 650 mg pe PO PRN PRN 11/10/16 Memantine [Namenda] 5 mg PO DAILY 11/16/16 - Allergies Allergies/Adverse Reactions: Allergies Allergy/AdvReac Type Severity Reaction Status Date / Time No Known Drug Allergies Allergy Verified 09/27/16 17:38 Review of Systems - Constitutional Constitutional: reports: Fatigue, Poor appetite, Weight loss - Eyes Eyes: reports: Corrective lenses - Ears, Nose & Throat Ears, Nose & Throat: reports: Other (complaining of dry mouth; has trialed the biotin without much improvement; counseling how might use more effectively) - Cardiovascular Cariovascular: reports: Decr. exercise tolerance, Other (mostly bebound). denies: Chest pain - Respiratory Respiratory: reports: SOB at rest, SOB with exertion, Pleuritic pain, Other ( feeling crepitus) - Gastrointestinal Gastrointestinal: reports: Abdominal distention, Reflux/heartburn, Bloating, Poor appetite - Genitourinary Genitourinary: denies: Incontinence - Musculoskeletal Musculoskeletal: reports: Muscle weakness - Integumentary Integumentary: reports: Dryness - Neurological Neurological: reports: General weakness, Memory problems (mild) - Psychiatric Psychiatric: reports: Depression (very distressed with delay of treatments; slept better last night so feels coping better) - Endocrine Endocrine: reports: Other (no hypthryoidism/diabetes) - Hematologic/Lymphatic Hematologic/Lymphatic: reports: Anemia - All Other Systems All Other Systems: reports: Reviewed and negative Physical Examination - Vital Signs Vital Signs: Vital Signs x48h Temp Pulse Resp BP BP Pulse Ox 11/24/16 15:41 36.7 C 95 18 104/58 L 98 11/24/16 12:11 36.7 C 89 18 97/61 99 - Physical Exam General Appearance: positive: Moderate distress (feeling much more uncomfortable with abdominal distension) Eyes Bilateral: negative: No scleral icterus ENT: positive: Dry mucous membranes, Other (no s/s candidiasis) Neck: positive: Trachea midline Respiratory: positive: Other (chest tubes right side; has left pleural effusion ; leak on right bloody drainage) Cardiovascular: positive: Regular rate & rhythm, Tachycardia Abdomen: positive: Tenderness, Other (taut on examination) Skin: positive: Pallor Extremities: positive: Other (increase swelling lower extremeties; left greater than right) Neurologic/Psychiatric: positive: Oriented x3, Weakness, Depressed mood/affect Palliative Care - POLST Patient has POLST: Yes POLST Status: DNR, Limited Interventions Pain: Pain unchanged Drowsiness: Mild (1-3) Nausea: None Anxiety: Moderate (4-6) Dyspnea: Moderate (4-6) Anorexia: Severe (7-10) Insomnia: Sleep improved Constipation: Yes, Opoid induced, Managed (reports had good BM this am) Feelings of wellbeing/Perceived Quality of Life: Worsening Performance Status: Patient currently mostly bedbound with CT insertion - Palliative Care Discussion: Discussion regarding continue feelings regarding ongoing complications, current treatment on hold, feeling the fragmentation of care. Expressing anxiety though more calm today, about the "what next", introduced again weighing benefits and burdens, and that sometimes we have choices are ours to make, and sometimes limited by what is happening with the cancer. Counseling to normlize current distress. Supportive listening. Results - Lab Results Lab results reviewed: Yes Fish Bones: 11/22/16 05:00 11/22/16 05:00 Impression and Recommendations - Palliative Care Impression: This is a 66 year old man with continued and growing complications regarding progressive tumor burden of Stage IV GE adenocarcinoma with mets of brain, bone , and liver. Now with symptoms of ascites, with increase symptoms. Patient acknowledging continues concerns regarding complications, fragmentation of treatment plan, and coping with limitations of system. Recommendations/Counseling Done: 1. Severe abdominal distension, appears ascitic in nature. Call to surgeion who is due to see this afternoon concerns. CT scan ordered of abdomen. Bowels moved , but presents with early satiety further impacting his nutritional status. 2. Constipation, opioid induced. Resolved, counseling Senna currently PRN, to continue to take to keep moving. 3. Pleural effusions, patient remains anxious with now "leak", breathing still effected. 4. Advanced care planning, patient with continue decline, wanting to continue to pursue treatment options available, if progressive disease and continued decline may need to introduce as part of the continuum considering hospice support. Patient at end of life goals was to have a at home. Time Spent: 30 minutes with greater than 50% done in counseling and coordination of care.
[2016-11-24] MEDS: IOPAMIDOL-300 100 ML VIAL IVP ONE (18:51)
[2016-11-24] MEDS: PANTOPRAZOLE 40 MG TABLET PO SCH (18:56)
[2016-11-24] MEDS: oxyCODONE 5 MG TABLET PO PRN (21:41)
--- NOTE | 2016-11-24 21:42 | CT Preliminary Report ---
Exam: CT Abdomen/Pelvis W/ IMPRESSION: 1. Moderate left pleural effusion with left lower lobe consolidation appears unchanged. Left lower lo be 7 mm pulmonary nodule unchanged. 4 mm lingular pulmonary nodule appears unchanged. These could rep resent pulmonary metastasis. Right base chest tube with moderate persistent right base pneumothorax a ppears unchanged. Partially collapsed right lung with airspace disease and consolidation again noted. 2. Distal esophageal wall thickening again noted. 3. Mild proximal duodenal wall thickening versus nondistended duodenum. 4. Mild perihepatic ascites similar to the prior CTA chest. 5. Presacral edema. There is moderate diffuse mesenteric stranding as well as retroperitoneal strandi ng, could be from fluid overload. Moderate to severe chest, abdominal and pelvic anasarca extending i nto the thighs, new compared to the prior CT abdomen and pelvis. 6. Small free fluid in the pelvis. Small intermediate density free fluid seen in the right lower quad rant, measures 5.7 x 2.3 cm with Hounsfield units of 28. This could represent liquefying subacute hem orrhage versus proteinaceous fluid 7. Left para-aortic lymphadenopathy at the level of the kidneys measures 1.1 cm, decreased compared t o the prior exam where it measured 1.4 cm. 8. Numerous liver metastasis, increased compared to the prior CT abdomen and pelvis. Otherwise, as ab christiano. [facility] SITE ID: [id number]
--- NOTE | 2016-11-24 21:45 | CT Report ---
EXAM: CT ABDOMEN AND PELVIS EXAM DATE: 11/24/2016 07:01 PM. CLINICAL HISTORY: History of esophageal cancer. Metastasis versus ascites COMPARISONS: CTA chest 11/23/2016. CT abdomen pelvis 09/18/2016. TECHNIQUE: Routine helical CT imaging was performed through the abdomen and pelvis. IV contrast: 100 mL Isovue 300. Enteric contrast: No. Reconstructions: Coronal and sagittal. In accordance with CT protocol optimization, one or more of the following dose reduction techniques w ere utilized for this exam: automated exposure control, adjustment of mA and/or KV based on patient s ize, or use of iterative reconstructive technique. FINDINGS: Moderate left pleural effusion with left lower lobe consolidation appears unchanged. Left l ower lobe 7 mm pulmonary nodule unchanged. 4 mm lingular pulmonary nodule appears unchanged. These co uld represent pulmonary metastasis. Right base chest tube with moderate persistent right base pneumot horax appears unchanged. Partially collapsed right lung with airspace disease and consolidation again noted. Right posterior pleural calcifications again noted. Distal esophageal wall thickening again noted. Coronary artery calcification. Right chest wall soft tissue gas again noted. Marked anasarca in the chest wall is again noted. Numerous low density liver masses most consistent with liver metastasis are again noted, with a large st lobular low-density mass seen in the left hepatic lobe measuring 5.2 x 3.6 cm. There are multiple new liver metastasis compared to the prior CT abdomen. Mild perihepatic ascites. The main portal vein appears patent. Mild pericholecystic fluid is noted. No bile duct dilatation. Pancreas: Unremarkable. Spleen: Unremarkable. Adrenals: Unremarkable. Kidneys: Suspect small bilateral parapelvic cysts, similar to the prior. No abdominal aortic aneurysm. The superior mesenteric artery appears patent. IVC filter is noted. Bowel: No dilated loops of bowel are seen to suggest obstruction. Small free fluid in the pelvis. Sma ll intermediate density free fluid seen in the right lower quadrant, measures 5.7 x 2.3 cm with Houns field units of 28. This could represent liquefying subacute hemorrhage versus proteinaceous fluid Presacral edema. There is moderate diffuse mesenteric stranding as well as retroperitoneal stranding, could be from fluid overload. Moderate to severe abdominal and pelvic anasarca extending into the th ighs, new compared to the prior CT abdomen and pelvis. Mild proximal duodenal wall thickening versus nondistended duodenum. Adjacent stranding along with th e overall diffuse stranding. Left para-aortic lymphadenopathy at the level of the kidneys measures 1.1 cm, decreased compared to t he prior exam where it measured 1.4 cm. The bladder is not fully distended and mild bladder wall thickening is not excluded. No acute bone findings are seen. IMPRESSION: 1. Moderate left pleural effusion with left lower lobe consolidation appears unchanged. Left lower lo be 7 mm pulmonary nodule unchanged. 4 mm lingular pulmonary nodule appears unchanged. These could rep resent pulmonary metastasis. Right base chest tube with moderate persistent right base pneumothorax a ppears unchanged. Partially collapsed right lung with airspace disease and consolidation again noted. 2. Distal esophageal wall thickening again noted. 3. Mild proximal duodenal wall thickening versus nondistended duodenum. 4. Mild perihepatic ascites similar to the prior CTA chest. 5. Presacral edema. There is moderate diffuse mesenteric stranding as well as retroperitoneal strandi ng, could be from fluid overload. Moderate to severe chest, abdominal and pelvic anasarca extending i nto the thighs, new compared to the prior CT abdomen and pelvis. 6. Small free fluid in the pelvis. Small intermediate density free fluid seen in the right lower quad rant, measures 5.7 x 2.3 cm with Hounsfield units of 28. This could represent liquefying subacute hem orrhage versus proteinaceous fluid 7. Left para-aortic lymphadenopathy at the level of the kidneys measures 1.1 cm, decreased compared t o the prior exam where it measured 1.4 cm. 8. Numerous liver metastasis, increased compared to the prior CT abdomen and pelvis. Otherwise, as ab ove. [facility] Referring Provider Line: [phone] SITE ID: [id number]
[2016-11-25] MEDS: SODIUM CHLORIDE 0.9% 1,000 ML IV SCH (00:31)
[2016-11-25] MEDS: ACETAMINOPHEN 1,000 MG/100 ML 100 ML IV SCH ×4 (00:31→21:08)
[2016-11-25] MEDS: PIPERACILLIN/TAZOBACTAM 3.375 GM in SODIUM CHLORIDE 0.9% MINIBAG 100 ML IV SCH ×4 (02:04→21:16)
[2016-11-25] MEDS: SODIUM CHLORIDE FLUSH 0.9% 10 ML SYRINGE IVP SCH ×3 (05:31→22:53)
[2016-11-25] MEDS: PANTOPRAZOLE 40 MG TABLET PO SCH ×2 (06:11→21:16)
[2016-11-25] MEDS ORDERED: SODIUM CHLORIDE FLUSH 0.9% 10 ML SYRINGE IVP ONE (08:54)
[2016-11-25] MEDS: HYDROmorphone 1 MG/ML CARPUJECT IVP PRN (09:01)
[2016-11-25] MEDS: SODIUM CHLORIDE FLUSH 0.9% 10 ML SYRINGE IVP PRN ×2 (09:02→12:29)
[2016-11-25] MEDS: POLYETHYLENE GLYCOL 3350 17 GM PACKET PO SCH (09:09)
[2016-11-25] MEDS: GABAPENTIN 100 MG CAPSULE PO SCH ×2 (09:09→21:17)
[2016-11-25] MEDS: MEMANTINE 5 MG TABLET PO SCH (09:15)
[2016-11-25] MEDS: ENOXAPARIN 120 MG/0.8 ML SYRINGE SUBQ SCH (09:18)
[2016-11-25] MEDS ORDERED: FUROSEMIDE 20 MG/2 ML VIAL IVP SCH (10:50)
--- NOTE | 2016-11-25 11:30 | PROVIDER PROGRESS NOTE ---
Subjective - General Admit Date: 11/21/16 Procedure Date: 11/21/16 Post Op Days: 4 Procedure Performed: Tube thoracostomy x2 right chest with drainage of 2600 mL of malignant pleu - Review of Systems Wound/Incisions: positive: Healing well, Drainage (Through chest tubes.), Other (The dressing was replaced by me. The stitches and the chest tubes are in place. The leak seen on the anterior chest tube is intrathoracic and not part of the chest tube or Pleur-evac.) Drain Type: 28 Fr straight chest tube and 32 Fr right angled chest tube Drain Output Description: thin bloody fluid Approximate mls Output: Total for both = 1040 mL General: positive: Other (Patient complained of abdominal distention last night and CT ordered. He expelled a lot of gas after the CT and no feels better, but still a bit bloated.) HEENT: positive: No symptoms Pulmonary: positive: Pleuritic chest pain (Right sided now with some rub and "fluttering."). negative: Shortness of breath Cardiovascular: positive: No symptoms Gastrointestinal: positive: Other (mild abdominal discomfort and bloating). negative: Nausea, Vomiting Musculoskeletal: positive: No symptoms Skin: positive: Pallor Psychiatric: positive: Depression, Anxiety All Other Systems: positive: Reviewed and negative Objective - Patient Data Reviewed Vital Signs: Yes Vital Signs: Vital Signs x48h Temp Pulse Resp BP Pulse Ox 11/25/16 08:05 36.6 C 88 18 98/61 95 Intake & Output: Intake and Output Totals x24h 11/23/16 11/24/16 11/25/16 23:59 23:59 23:59 Intake Total 3776 3849 1443 Output Total 1690 3034 1670 Balance 2086 815 227 - Lab Results Lab Results: 11/22/16 05:00 11/22/16 05:00 - Current Medications Current Medications: Current Medications Generic Name Dose Route Start Last Admin Trade Name Freq PRN Reason Stop Dose Admin Enoxaparin Sodium 120 mg 11/23/16 09:00 11/25/16 09:18 Lovenox SUBQ 120 mg DAILY [facility] Administration Gabapentin 100 mg 11/22/16 21:00 11/25/16 09:09 Neurontin PO 100 mg BID [facility] Administration Hydromorphone HCl 0.5 mg 11/21/16 11:35 11/25/16 09:01 Dilaudid Inj IVP 0.5 mg Q2HR PRN Administration PAIN Acetaminophen 100 mls @ 400 mls/hr 11/21/16 12:00 11/25/16 06:10 Ofirmev IV 400 mls/hr Q6H [facility] Administration Piperacillin Sod/Tazobactam 100 mls @ 200 mls/hr 11/23/16 02:00 11/25/16 08:22 Sod 3.375 gm/ Sodium Chloride IV 200 mls/hr Q6H [facility] Administration Lorazepam 0.5 mg 11/23/16 22:21 11/23/16 23:44 Ativan PO 0.5 mg Q8H PRN Administration Anxiety Memantine 5 mg 11/23/16 09:00 11/25/16 09:15 Namenda PO 5 mg DAILY [facility] Administration Ondansetron HCl 4 mg 11/23/16 17:02 11/23/16 17:36 Zofran Inj IVP 4 mg Q4HR PRN Administration Nausea / Vomiting Oxycodone HCl 5 mg 11/21/16 19:25 11/24/16 21:41 Roxicodone PO 5 mg Q6HR PRN Administration PAIN Pantoprazole Sodium 40 mg 11/24/16 18:00 11/25/16 06:11 Protonix PO 40 mg BIDAC [facility] Administration Polyethylene Glycol 17 gm 11/22/16 09:00 11/25/16 09:09 Miralax PO 17 gm DAILY [facility] Administration Sodium Chloride 10 ml 11/21/16 11:35 11/25/16 09:02 Normal Saline Flush 0.9% IVP 10 ml PRN PRN Administration NEEDED PER PROVIDER ORDERS Sodium Chloride 10 ml 11/21/16 14:00 11/25/16 05:31 Normal Saline Flush 0.9% IVP Not Given Q8HR [facility] - Physical Exam Wound/Incisions: positive: Dressing dry and intact General Appearance: positive: No acute distress Respiratory: positive: Other (audible airleak on right. No palpable subcutaneous emphysema. No crackles. Diminished breathsounds bilaterally. expirator airleak from anterior chest tube noted. No airleak from posterior chest tube.) Cardiovascular: positive: Regular rate & rhythm Abdomen: positive: Other (softly distended, non-tender to palpation) Extremities: positive: Pedal edema Neurologic/Psychiatric: positive: Oriented x3 Impression/Plan - Problem List Problem List: Stage IV esophageal cancer with metastatic disease to the lung presenting with large right pleural effusion, s/p anterior and posterior right chest tube placement POD 4, s/p talc pleurodesis day 3 with persistent air leak. - CT abdomen reviewed and shows evidence of anasarca and fluid overload. IV fluids stopped and lasix administered. Bowel protocol started - Persistent air leak: will attempt to water seal anterior chest tube to attempt to allow lung parenchyma to seal. Posterior chest tube to remain to suction. If patient develops worsening SOB or subcutaneous emphysema tube will be placed back to suction. Repeat CXR tomorrow. - Patient is concerned that his prolonged hospital stay is interfering with his chemo regimen. I explained to him that unfortunately his current condition must be treated before he is ready to resume chemo. Appreciate palliative care visits to help patient understand is prognosis.
--- NOTE | 2016-11-25 12:43 | PROVIDER PROGRESS NOTE ---
Subjective - Prog Note Date Prog Note Date: 11/25/16 Prog Note Time: 12:33 - Subjective Pt reports feeling: No change Subjective: Patient states he is feeling better around the chest tube sites but feels bloated in the upper abdomen region. He is hoping there is no additional mets in the abdomen on the CT report from last night. He does have some nausea and abdominal discomfort but no vomiting, diarrhea or constipation. No chest pain, shortness of breath. He admits to some moderate discomfort when eating and some gas. Surgery is coming in to see patient. Current Medications - Current Medications Current Medications: Active Medications Generic Name Dose Route Start Last Admin Trade Name Freq PRN Reason Stop Dose Admin Acetaminophen 650 mg 11/22/16 18:46 Tylenol [place] PRN PRN Analgesia Enoxaparin Sodium 120 mg 11/23/16 09:00 11/25/16 09:18 Lovenox SUBQ 120 mg DAILY MARYBETH Administration Furosemide 20 mg 11/25/16 10:50 11/25/16 12:28 Lasix Inj 20mg Vial IVP 11/25/16 13:00 20 mg ONCE MARYBETH Administration Gabapentin 100 mg 11/22/16 21:00 11/25/16 09:09 Neurontin PO 100 mg BID MARYBETH Administration Guaifenesin/Codeine Phosphate 5 - 10 ml 11/22/16 18:46 Robitussin Ac PO Q4HR PRN Cough Hydromorphone HCl 0.5 mg 11/21/16 11:35 11/25/16 09:01 Dilaudid Inj IVP 0.5 mg Q2HR PRN Administration PAIN Hydromorphone HCl 2 - 4 mg 11/22/16 18:46 Dilaudid PO Q4HR PRN PAIN Acetaminophen 100 mls @ 400 mls/hr 11/21/16 12:00 11/25/16 12:30 Ofirmev IV 400 mls/hr Q6H MARYBETH Administration Piperacillin Sod/Tazobactam 100 mls @ 200 mls/hr 11/23/16 02:00 11/25/16 08:22 Sod 3.375 gm/ Sodium Chloride IV 200 mls/hr Q6H MARYBETH Administration Lorazepam 0.5 mg 11/23/16 22:21 11/23/16 23:44 Ativan PO 0.5 mg Q8H PRN Administration Anxiety Memantine 5 mg 11/23/16 09:00 11/25/16 09:15 Namenda PO 5 mg DAILY MARYBETH Administration Ondansetron HCl 4 mg 11/23/16 17:02 11/23/16 17:36 Zofran Inj IVP 4 mg Q4HR PRN Administration Nausea / Vomiting Oxycodone HCl 5 mg 11/21/16 19:25 11/24/16 21:41 Roxicodone PO 5 mg Q6HR PRN Administration PAIN Pantoprazole Sodium 40 mg 11/24/16 18:00 11/25/16 06:11 Protonix PO 40 mg BIDAC MARYBETH Administration Polyethylene Glycol 17 gm 11/22/16 09:00 11/25/16 09:09 Miralax PO 17 gm DAILY MARYBETH Administration Prochlorperazine Edisylate 10 mg 11/23/16 17:03 Compazine Inj IVP Q4HR PRN Nausea / Vomiting Senna 17.2 mg 11/23/16 16:58 Senokot PO DAILY PRN Constipation Sodium Chloride 10 ml 11/21/16 11:35 11/25/16 12:29 Normal Saline Flush 0.9% IVP 10 ml PRN PRN Administration NEEDED PER PROVIDER ORDERS Sodium Chloride 10 ml 11/21/16 14:00 11/25/16 05:31 Normal Saline Flush 0.9% IVP Not Given Q8HR MARYBETH Pantoprazole [Protonix] 40 mg PO BID 02/02/16 Enoxaparin [Lovenox] 120 mg SQ DAILY 03/22/16 HYDROmorphone [Dilaudid] 2 - 4 mg ORAL Q4HR PRN 08/23/16 Gabapentin 100 mg PO BID 09/06/16 guaiFENesin/CODEINE [Robitussin AC] 5 - 10 ml PO Q4HR PRN 11/02/16 Acetaminophen [Tylenol] 650 mg pe PO PRN PRN 11/10/16 Memantine [Namenda] 5 mg PO DAILY 11/16/16 Objective - Vital Signs/Intake & Output Reviewed Vital Signs: Yes Vital Signs: Vital Signs x48h Temp Pulse Resp BP Pulse Ox 11/25/16 08:05 36.6 C 88 18 98/61 95 Intake & Output: Intake & Output 11/22/16 11/23/16 11/24/16 11/25/16 23:59 23:59 23:59 23:59 Intake Total 3638 3776 3849 1683 Output Total 1220 1690 3034 1970 Balance 2410 7985 815 -287 - Objective General Appearance: positive: No acute distress, Alert Eyes Bilateral: positive: Normal inspection, PERRL, EOMI ENT: positive: ENT inspection nml, Pharynx nml, No signs of dehydration Neck: positive: Nml inspection, Thyroid nml, No JVD, Trachea midline Respiratory: positive: No respiratory distress, Other (patient has chest tube x 2 to right upper flank with small output) Cardiovascular: positive: Regular rate & rhythm, No murmur, No gallop. negative : JVD present Abdomen: positive: Non-tender, No organomegaly, Tenderness (to upper abdomen with mild distention). negative: Guarding, Rebound Back: positive: Nml inspection Skin: positive: Color nml, No rash, Warm, Dry Extremities: positive: Full ROM, Nml appearance. negative: Calf tenderness Neurologic/Psychiatric: positive: Oriented x3, CN's nml (2-12), Motor nml, Sensation nml, Mood/affect nml, Weakness - Lab Results Fish Bones: 11/22/16 05:00 11/22/16 05:00 Other Labs: Laboratory Last Values WBC 8.5 x10^3/uL (4.8-10.8) 11/22/16 05:00 RBC 2.99 10^6/uL (4.70-6.10) L 11/22/16 05:00 Hgb 9.1 g/dL (14.0-18.0) L 11/22/16 05:00 Hct 27.5 % (42.0-52.0) L 11/22/16 05:00 MCV 92.1 fL (80.0-94.0) 11/22/16 05:00 MCH 30.4 pg (27.0-31.0) 11/22/16 05:00 MCHC 33.0 g/dL (32.0-36.0) 11/22/16 05:00 RDW 19.5 % (12.0-15.0) H 11/22/16 05:00 Plt Count 217 10^3/uL (130-450) 11/22/16 05:00 MPV 7.8 fL (7.4-11.4) 11/22/16 05:00 Neut # 6.8 10^3/uL (1.5-6.6) H 11/22/16 05:00 Lymph # 0.5 10^3/uL (1.5-3.5) L 11/22/16 05:00 [place] # 1.0 10^3/uL (0.0-1.0) 11/22/16 05:00 Eos # 0.1 10^3/uL (0.0-0.7) 11/22/16 05:00 Baso # 0.0 10^3/uL (0.0-0.1) 11/22/16 05:00 Absolute Nucleated RBC 0.00 x10^3/uL 11/22/16 05:00 Nucleated RBCs 0.0 /100WBC 11/22/16 05:00 Sodium 133 mmol/L (135-145) L 11/22/16 05:00 Potassium 4.6 mmol/L (3.5-5.0) 11/22/16 05:00 Chloride 104 mmol/L (101-111) 11/22/16 05:00 Carbon Dioxide 24 mmol/L (21-32) 11/22/16 05:00 Anion Gap 5.0 (6-13) L 11/22/16 05:00 BUN 19 mg/dL (6-20) 11/22/16 05:00 Creatinine 0.9 mg/dL (0.6-1.2) 11/22/16 05:00 Estimated GFR (MDRD) 84 (>89) L 11/22/16 05:00 Glucose 105 mg/dL (70-100) H 11/22/16 05:00 Calcium 8.5 mg/dL (8.5-10.3) 11/22/16 05:00 Magnesium 1.9 mg/dL (1.7-2.8) 11/23/16 01:11 Total Bilirubin 0.5 mg/dL (0.2-1.0) 11/22/16 05:00 AST 35 IU/L (10-42) 11/22/16 05:00 ALT 25 IU/L (10-60) 11/22/16 05:00 Alkaline Phosphatase 177 IU/L (42-121) H 11/22/16 05:00 Total Creatine Kinase 37 IU/L (22-269) 11/23/16 01:11 CK-MB (CK-2) 2.0 ng/mL (0.6-6.3) 11/23/16 01:11 Troponin I < 0.04 ng/mL (<0.49) 11/23/16 01:11 Total Protein 5.2 g/dL (6.7-8.2) L 11/22/16 05:00 Albumin 2.4 g/dL (3.2-5.5) L 11/22/16 05:00 Globulin 2.8 g/dL (2.1-4.2) 11/22/16 05:00 Albumin/Globulin Ratio 0.9 (1.0-2.2) L 11/22/16 05:00 - Diagnostic Imaging Diagnostic Imaging Results: positive: Prelim report reviewed Diagnostic Imaging Comments: CT of abdomen and pelvis with worsening ascites and moderate left pleural effusion with left lower lobe consolidation unchanged. possible pulmonary metastasis. - Other Results/Comments Other Results/Comments: Time spent on followup consultation was 30 minutes. 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 patient stable with chest tube for pleural effusion with small leak. Per surgery ( Persistent air leak: will attempt to water seal anterior chest tube to attempt to allow lung parenchyma to seal. Posterior chest tube to remain to suction. If patient develops worsening SOB or subcutaneous emphysema tube will be placed back to suction. Repeat CXR tomorrow ) CT abdomen reviewed and shows evidence of anasarca and fluid overload. IV fluids stopped and lasix 20mg IV was given. Bowel protocol started (2) Malignant pleural effusion Impression: ongoing. continue with pain medication and with chest tubes. surgery primary. Pallative care on consult. Per SX (Patient is concerned that his prolonged hospital stay is interfering with his chemo regimen. I explained to him that unfortunately his current condition must be treated before he is ready to resume chemo. Appreciate palliative care visits to help patient understand is prognosis) (3) Complication of chest tube Impression: Surgery primary and management for chest tube with leak. see prior note. Qualifiers: Encounter type: initial encounter Qualified Code(s): T85.9XXA - Unspecified complication of internal prosthetic device, implant and graft, initial encounter
[2016-11-25] MEDS: oxyCODONE 5 MG TABLET PO PRN (21:09)
[2016-11-26] MEDS: ACETAMINOPHEN 1,000 MG/100 ML 100 ML IV SCH ×5 (00:03→23:43)
[2016-11-26] MEDS: PIPERACILLIN/TAZOBACTAM 3.375 GM in SODIUM CHLORIDE 0.9% MINIBAG 100 ML IV SCH ×4 (01:03→19:29)
[2016-11-26] MEDS: SODIUM CHLORIDE FLUSH 0.9% 10 ML SYRINGE IVP PRN (01:03)
[2016-11-26] MEDS: PANTOPRAZOLE 40 MG TABLET PO SCH ×2 (06:21→17:22)
[2016-11-26] MEDS: SODIUM CHLORIDE FLUSH 0.9% 10 ML SYRINGE IVP SCH ×3 (06:22→19:29)
[2016-11-26] MEDS: HYDROmorphone 1 MG/ML CARPUJECT IVP PRN ×3 (06:50→19:40)
--- NOTE | 2016-11-26 07:01 | XRAY Preliminary Report ---
Exam: XR Chest 1 View IMPRESSION: 1. Stable to minimally larger right midlung field airspace disease. 2. Left basilar airspace disease demonstrates mild progression. 3. Small bilateral effusions have developed. 4. No definite pneumothorax. 2 right-sided chest tubes are again seen. [facility] SITE ID: [id number]
--- NOTE | 2016-11-26 07:29 | XRAY Report ---
EXAM: CHEST RADIOGRAPHY EXAM DATE: 11/26/2016 06:31 AM. CLINICAL HISTORY: Chest tubes, pneumothorax, air leak. COMPARISON: None. TECHNIQUE: 1 view. FINDINGS: Lungs/Pleura: There are two right-sided chest tubes in position, without significant change from the prior exam. Small right-sided pleural effusion is present. There is [id number] right-sided ches t wall subcutaneous emphysema, new from the prior exam. Irregular opacity projects over the right mid lung field, stable to minimally increased from the prior exam. Left basilar consolidation is also sta ble to minimally increased. There is a small left-sided pleural effusion, increased from the prior. Mediastinum: Cardiac silhouette is within normal limits. Other: Left-sided Port-A-Cath tip projects over the cavoatrial junction. IMPRESSION: 1. Stable to minimally larger right midlung field airspace disease. 2. Left basilar airspace disease demonstrates mild progression. 3. Small bilateral effusions have developed. 4. No definite pneumothorax. Two right-sided chest tubes are again seen. DANIKA Referring Provider Line: [phone] SITE ID: [id number]
[2016-11-26] MEDS: MEMANTINE 5 MG TABLET PO SCH (08:47)
[2016-11-26] MEDS: GABAPENTIN 100 MG CAPSULE PO SCH ×2 (08:47→19:41)
[2016-11-26] MEDS: POLYETHYLENE GLYCOL 3350 17 GM PACKET PO SCH (08:47)
[2016-11-26] MEDS: ENOXAPARIN 120 MG/0.8 ML SYRINGE SUBQ SCH (08:47)
--- NOTE | 2016-11-26 10:33 | PROVIDER PROGRESS NOTE ---
Subjective - Prog Note Date Prog Note Date: 11/26/16 Prog Note Time: 10:31 - Subjective Pt reports feeling: No change (Patient seen at bedside and has no events overnight. He denies worsening pain or new pain. He still has bilateral chest tubes in place with no increasing output. No chest pain or shortness of breath, no nausea or vomiting.) Subjective: Patient was seen at bedside and states he is feeling good today. no events overnight. He is pending evaluation from surgery. chest tube in place and has a small leak. No chest pain or shortness of breath. Current Medications - Current Medications Current Medications: Active Medications Generic Name Dose Route Start Last Admin Trade Name Freq PRN Reason Stop Dose Admin Acetaminophen 650 mg 11/22/16 18:46 Tylenol [place] PRN PRN Analgesia Enoxaparin Sodium 120 mg 11/23/16 09:00 11/26/16 08:47 Lovenox SUBQ 120 mg DAILY MARYBETH Administration Gabapentin 100 mg 11/22/16 21:00 11/26/16 08:47 Neurontin PO 100 mg BID MARYBETH Administration Guaifenesin/Codeine Phosphate 5 - 10 ml 11/22/16 18:46 Robitussin Ac PO Q4HR PRN Cough Hydromorphone HCl 0.5 mg 11/21/16 11:35 11/26/16 06:50 Dilaudid Inj IVP 0.5 mg Q2HR PRN Administration PAIN Hydromorphone HCl 2 - 4 mg 11/22/16 18:46 Dilaudid PO Q4HR PRN PAIN Acetaminophen 100 mls @ 400 mls/hr 11/21/16 12:00 11/26/16 06:22 Ofirmev IV 400 mls/hr Q6H MARYBETH Administration Piperacillin Sod/Tazobactam 100 mls @ 200 mls/hr 11/23/16 02:00 11/26/16 08:47 Sod 3.375 gm/ Sodium Chloride IV 200 mls/hr Q6H MARYBETH Administration Lorazepam 0.5 mg 11/23/16 22:21 11/23/16 23:44 Ativan PO 0.5 mg Q8H PRN Administration Anxiety Memantine 5 mg 11/23/16 09:00 11/26/16 08:47 Namenda PO 5 mg DAILY MARYBETH Administration Ondansetron HCl 4 mg 11/23/16 17:02 11/23/16 17:36 Zofran Inj IVP 4 mg Q4HR PRN Administration Nausea / Vomiting Oxycodone HCl 5 mg 11/21/16 19:25 11/25/16 21:09 Roxicodone PO 5 mg Q6HR PRN Administration PAIN Pantoprazole Sodium 40 mg 11/24/16 18:00 11/26/16 06:21 Protonix PO 40 mg BIDAC MARYBETH Administration Polyethylene Glycol 17 gm 11/22/16 09:00 11/26/16 08:47 Miralax PO 17 gm DAILY MARYBETH Administration Prochlorperazine Edisylate 10 mg 11/23/16 17:03 Compazine Inj IVP Q4HR PRN Nausea / Vomiting Senna 17.2 mg 11/23/16 16:58 Senokot PO DAILY PRN Constipation Sodium Chloride 10 ml 11/21/16 11:35 11/26/16 01:03 Normal Saline Flush 0.9% IVP 20 ml PRN PRN Administration NEEDED PER PROVIDER ORDERS Sodium Chloride 10 ml 11/21/16 14:00 11/26/16 06:22 Normal Saline Flush 0.9% IVP 10 ml Q8HR MARYBETH Administration Pantoprazole [Protonix] 40 mg PO BID 02/02/16 Enoxaparin [Lovenox] 120 mg SQ DAILY 03/22/16 HYDROmorphone [Dilaudid] 2 - 4 mg ORAL Q4HR PRN 08/23/16 Gabapentin 100 mg PO BID 09/06/16 guaiFENesin/CODEINE [Robitussin AC] 5 - 10 ml PO Q4HR PRN 11/02/16 Acetaminophen [Tylenol] 650 mg pe PO PRN PRN 11/10/16 Memantine [Namenda] 5 mg PO DAILY 11/16/16 Objective - Vital Signs/Intake & Output Reviewed Vital Signs: Yes Vital Signs: Vital Signs x48h Pulse Resp BP Pulse Ox 11/26/16 08:10 94 20 115/66 94 Intake & Output: Intake & Output 11/23/16 11/24/16 11/25/16 11/26/16 23:59 23:59 23:59 23:59 Intake Total 7637 1138 3347 340 Output Total 1690 3034 3110 830 Balance [phone] -833 -780 - Objective General Appearance: positive: No acute distress, Alert, Mild distress Eyes Bilateral: positive: Normal inspection, PERRL, EOMI ENT: positive: ENT inspection nml, Pharynx nml, No signs of dehydration Neck: positive: Nml inspection, Thyroid nml, No JVD, Trachea midline Respiratory: positive: No respiratory distress, Other (bilateral chest tubes with scant drainage) Cardiovascular: positive: Regular rate & rhythm, No murmur, No gallop. negative : Bradycardia Abdomen: positive: Non-tender, No organomegaly, No distention. negative: Guarding, Rebound Back: positive: Nml inspection Skin: positive: Color nml, No rash, Warm, Dry, Pallor (pale) Extremities: positive: Non-tender, Full ROM, Nml appearance, Pedal edema ( moderate to bilateral feet and ankles) Neurologic/Psychiatric: positive: Oriented x3, CN's nml (2-12), Motor nml, Sensation nml, Mood/affect nml - Lab Results Fish Bones: 11/22/16 05:00 11/22/16 05:00 Other Labs: Laboratory Last Values WBC 8.5 x10^3/uL (4.8-10.8) 11/22/16 05:00 RBC 2.99 10^6/uL (4.70-6.10) L 11/22/16 05:00 Hgb 9.1 g/dL (14.0-18.0) L 11/22/16 05:00 Hct 27.5 % (42.0-52.0) L 11/22/16 05:00 MCV 92.1 fL (80.0-94.0) 11/22/16 05:00 MCH 30.4 pg (27.0-31.0) 11/22/16 05:00 MCHC 33.0 g/dL (32.0-36.0) 11/22/16 05:00 RDW 19.5 % (12.0-15.0) H 11/22/16 05:00 Plt Count 217 10^3/uL (130-450) 11/22/16 05:00 MPV 7.8 fL (7.4-11.4) 11/22/16 05:00 Neut # 6.8 10^3/uL (1.5-6.6) H 11/22/16 05:00 Lymph # 0.5 10^3/uL (1.5-3.5) L 11/22/16 05:00 [place] # 1.0 10^3/uL (0.0-1.0) 11/22/16 05:00 Eos # 0.1 10^3/uL (0.0-0.7) 11/22/16 05:00 Baso # 0.0 10^3/uL (0.0-0.1) 11/22/16 05:00 Absolute Nucleated RBC 0.00 x10^3/uL 11/22/16 05:00 Nucleated RBCs 0.0 /100WBC 11/22/16 05:00 Sodium 133 mmol/L (135-145) L 11/22/16 05:00 Potassium 4.6 mmol/L (3.5-5.0) 11/22/16 05:00 Chloride 104 mmol/L (101-111) 11/22/16 05:00 Carbon Dioxide 24 mmol/L (21-32) 11/22/16 05:00 Anion Gap 5.0 (6-13) L 11/22/16 05:00 BUN 19 mg/dL (6-20) 11/22/16 05:00 Creatinine 0.9 mg/dL (0.6-1.2) 11/22/16 05:00 Estimated GFR (MDRD) 84 (>89) L 11/22/16 05:00 Glucose 105 mg/dL (70-100) H 11/22/16 05:00 Calcium 8.5 mg/dL (8.5-10.3) 11/22/16 05:00 Magnesium 1.9 mg/dL (1.7-2.8) 11/23/16 01:11 Total Bilirubin 0.5 mg/dL (0.2-1.0) 11/22/16 05:00 AST 35 IU/L (10-42) 11/22/16 05:00 ALT 25 IU/L (10-60) 11/22/16 05:00 Alkaline Phosphatase 177 IU/L (42-121) H 11/22/16 05:00 Total Creatine Kinase 37 IU/L (22-269) 11/23/16 01:11 CK-MB (CK-2) 2.0 ng/mL (0.6-6.3) 11/23/16 01:11 Troponin I < 0.04 ng/mL (<0.49) 11/23/16 01:11 Total Protein 5.2 g/dL (6.7-8.2) L 11/22/16 05:00 Albumin 2.4 g/dL (3.2-5.5) L 11/22/16 05:00 Globulin 2.8 g/dL (2.1-4.2) 11/22/16 05:00 Albumin/Globulin Ratio 0.9 (1.0-2.2) L 11/22/16 05:00 - Diagnostic Imaging Diagnostic Imaging Results: positive: Final report reviewed - Other Results/Comments Other Results/Comments: time spent with patient for assessment was 35 minutes for planning Assessment/Plan - Problem List (1) Stage IV adenocarcinoma of esophagus Impression: stable. patient is still expressing concerns for needing chemotherapy and wishes to consult with oncology. He has agreed to hospice but would like another opinion regarding continuation of chemotherapy sooner than planned. will advise surgery of patient wishes. continue with pain medication as scheduled. (2) Malignant pleural effusion Impression: ongoing. continue with chest tubes and plan for discontinuation per surgery recommendations. patient oxygen sat stable on RA (3) Complication of chest tube Impression: acute. air leak was noted and will consult with surgery for further management Qualifiers: Encounter type: initial encounter Qualified Code(s): T85.9XXA - Unspecified complication of internal prosthetic device, implant and graft, initial encounter
--- NOTE | 2016-11-26 11:12 | PROVIDER PROGRESS NOTE ---
Subjective - General Admit Date: 11/21/16 Procedure Date: 11/21/16 Post Op Days: 5 Procedure Performed: Tube thoracostomy x2 right chest with drainage of 2600 mL of malignant pleu - Review of Systems Wound/Incisions: positive: Dressing dry and intact Drain Type: 28 Fr straight chest tube and 32 Fr right angled chest tube Drain Output Description: serosanguinous Approximate mls Output: Total for both = 130 mL General: positive: Other (Patient complained of abdominal distention last night and CT ordered. He expelled a lot of gas after the CT and no feels better, but still a bit bloated.) HEENT: positive: No symptoms Pulmonary: positive: Pleuritic chest pain (Right sided now with some rub and "fluttering."). negative: Shortness of breath Cardiovascular: positive: No symptoms Gastrointestinal: positive: Other (mild persistent abdominal discomfort and bloating). negative: Nausea, Vomiting Musculoskeletal: positive: No symptoms Skin: positive: Pallor Psychiatric: positive: Depression, Anxiety All Other Systems: positive: Reviewed and negative Objective - Patient Data Reviewed Vital Signs: Yes Vital Signs: Vital Signs x48h Pulse Resp BP Pulse Ox 11/26/16 08:10 94 20 115/66 94 Intake & Output: Intake and Output Totals x24h 11/24/16 11/25/16 11/26/16 23:59 23:59 23:59 Intake Total 3849 2273 340 Output Total 3034 3110 830 Balance 815 -837 -490 - Lab Results Lab Results: 11/22/16 05:00 11/22/16 05:00 - Imaging Results Radiology Imaging: positive: Final report received (No increase in subcutaneous emphysema or airspace disease) - Current Medications Current Medications: Current Medications Generic Name Dose Route Start Last Admin Trade Name Freq PRN Reason Stop Dose Admin Enoxaparin Sodium 120 mg 11/23/16 09:00 11/26/16 08:47 Lovenox SUBQ 120 mg DAILY MARYBETH Administration Gabapentin 100 mg 11/22/16 21:00 11/26/16 08:47 Neurontin PO 100 mg BID MARYBETH Administration Hydromorphone HCl 0.5 mg 11/21/16 11:35 11/26/16 06:50 Dilaudid Inj IVP 0.5 mg Q2HR PRN Administration PAIN Acetaminophen 100 mls @ 400 mls/hr 11/21/16 12:00 11/26/16 06:22 Ofirmev IV 400 mls/hr Q6H MARYBETH Administration Piperacillin Sod/Tazobactam 100 mls @ 200 mls/hr 11/23/16 02:00 11/26/16 08:47 Sod 3.375 gm/ Sodium Chloride IV 200 mls/hr Q6H MARYBETH Administration Lorazepam 0.5 mg 11/23/16 22:21 11/23/16 23:44 Ativan PO 0.5 mg Q8H PRN Administration Anxiety Memantine 5 mg 11/23/16 09:00 11/26/16 08:47 Namenda PO 5 mg DAILY MARYBETH Administration Ondansetron HCl 4 mg 11/23/16 17:02 11/23/16 17:36 Zofran Inj IVP 4 mg Q4HR PRN Administration Nausea / Vomiting Oxycodone HCl 5 mg 11/21/16 19:25 11/25/16 21:09 Roxicodone PO 5 mg Q6HR PRN Administration PAIN Pantoprazole Sodium 40 mg 11/24/16 18:00 11/26/16 06:21 Protonix PO 40 mg BIDAC MARYBETH Administration Polyethylene Glycol 17 gm 11/22/16 09:00 11/26/16 08:47 Miralax PO 17 gm DAILY MARYBETH Administration Sodium Chloride 10 ml 11/21/16 11:35 11/26/16 01:03 Normal Saline Flush 0.9% IVP 20 ml PRN PRN Administration NEEDED PER PROVIDER ORDERS Sodium Chloride 10 ml 11/21/16 14:00 11/26/16 06:22 Normal Saline Flush 0.9% IVP 10 ml Q8HR MARYBETH Administration - Physical Exam Wound/Incisions: positive: Drainage General Appearance: positive: No acute distress Respiratory: positive: No respiratory distress, Other (persistent airleak in posterior tube on exhalation. This is reduced when tube is placed to waterseal.) Cardiovascular: positive: Regular rate & rhythm Abdomen: positive: Non-tender, Other (softly distended) Extremities: positive: Pedal edema Neurologic/Psychiatric: positive: Oriented x3 Impression/Plan - Problem List Problem List: s/p tbe thoracostomy x 2 and talc pleurodesis with persistent airleak - CXR with anterior tube to water seal is unchaged from prior and patient is remaining asymptomatic with no evidence of increasing SOB. Posterior chest tube placed to water seal. Will repeat CXR tomorrow. Drainage from tubes is decreasing - stable abdominal exam. Patient did have a BM yesterday and is on bowel protocol.
[2016-11-26] MEDS: HYDROmorphone 2 MG TABLET PO PRN (11:56)
[2016-11-26] MEDS: LORazepam 0.5 MG TABLET PO PRN (19:41)
[2016-11-27] MEDS: PIPERACILLIN/TAZOBACTAM 3.375 GM in SODIUM CHLORIDE 0.9% MINIBAG 100 ML IV SCH ×4 (02:12→21:23)
[2016-11-27] MEDS: HYDROmorphone 1 MG/ML CARPUJECT IVP PRN ×2 (05:04→08:34)
[2016-11-27] MEDS: ACETAMINOPHEN 1,000 MG/100 ML 100 ML IV SCH ×3 (06:03→17:45)
[2016-11-27] MEDS: PANTOPRAZOLE 40 MG TABLET PO SCH ×2 (06:03→16:57)
[2016-11-27] MEDS: SODIUM CHLORIDE FLUSH 0.9% 10 ML SYRINGE IVP SCH ×3 (06:03→21:27)
[2016-11-27 08:29] LABS: BASOPHILS # (AUTO) 0.1 10^3/uL (0.0-0.1); BASOPHILS % (AUTO) 0.5 %; EOSINOPHILS % (AUTO) 7.8 %; HCT - HEMATOCRIT 26.4 % (42.0-52.0); HGB - HEMOGLOBIN 8.5 g/dL (14.0-18.0); LYMPHOCYTES # (AUTO) 0.5 10^3/uL (1.5-3.5); LYMPHOCYTES % (AUTO) 4.1 %; MEAN CORPUSCULAR HGB CONC 32.2 g/dL (32.0-36.0); MEAN CORPUSCULAR VOLUME 90.1 fL (80.0-94.0); MEAN PLATELET VOLUME 6.8 fL (7.4-11.4); MONOCYTES # (AUTO) 1.2 10^3/uL (0.0-1.0); MONOCYTES % (AUTO) 9.8 %; NEUTROPHILS # (AUTO) 9.7 10^3/uL (1.5-6.6); NEUTROPHILS % (AUTO) 77.8 %; RED BLOOD COUNT 2.93 10^6/uL (4.70-6.10); RED CELL DISTRIBUTION WIDTH 20.2 % (12.0-15.0); UNCORRECTED WHITE BLOOD COUNT 12.4 x10^3/uL; WHITE BLOOD COUNT 12.4 x10^3/uL (4.8-10.8)
[2016-11-27 08:34] LABS: CALCIUM 7.7 mg/dL (8.5-10.3); CREATININE 0.8 mg/dL (0.6-1.2); POTASSIUM 3.7 mmol/L (3.5-5.0)
--- NOTE | 2016-11-27 08:34 | XRAY Preliminary Report ---
Exam: XR Chest 1 View IMPRESSION: 1. Question small lateral right basilar hydropneumothorax. Recommend attention on follow-up. 2. Stable right sided chest tubes. 3. Calcified right pleural plaques. 4. Mild congestive heart failure. [facility] SITE ID: [id number]
[2016-11-27] MEDS: POLYETHYLENE GLYCOL 3350 17 GM PACKET PO SCH (08:35)
[2016-11-27] MEDS: MEMANTINE 5 MG TABLET PO SCH (08:35)
[2016-11-27] MEDS: oxyCODONE 5 MG TABLET PO PRN ×2 (08:35→21:24)
[2016-11-27] MEDS: GABAPENTIN 100 MG CAPSULE PO SCH ×2 (08:35→21:24)
[2016-11-27] MEDS: ENOXAPARIN 120 MG/0.8 ML SYRINGE SUBQ SCH (08:37)
--- NOTE | 2016-11-27 08:37 | XRAY Report ---
EXAM: CHEST RADIOGRAPHY EXAM DATE: 11/27/2016 05:34 AM. CLINICAL HISTORY: Pneumothorax, chest tubes, air leak. COMPARISON: Chest x-ray 11/26/2016. TECHNIQUE: 1 view. FINDINGS: Lungs/Pleura: Calcified right pleural plaque. Diminished lung volumes crowding upon the vessels. Small Left pleural effusion. Mild pulmonary vasculature congestion. Relative lateral right basilar pleural lucency, question small hydropneumothorax. Mediastinum: Mild cardiomegaly. Tortuous thoracic aorta. Other: Stable medial right apical and basilar chest tubes. Left gradient Port-A-Cath with tip overlying cavoatrial junction. Right lateral upper chest wall soft tissue for same. IMPRESSION: 1. Question small lateral right basilar hydropneumothorax. Recommend attention on follow-up. 2. Stable right sided chest tubes. 3. Calcified right pleural plaques. 4. Mild congestive heart failure. Exam discussed with Dr. Hoffman on day of study at 8:32 AM. [facility] Referring Provider Line: [phone] SITE ID: [id number]
--- NOTE | 2016-11-27 11:53 | PROVIDER PROGRESS NOTE ---
Subjective - Prog Note Date Prog Note Date: 11/27/16 Prog Note Time: 11:46 - Subjective Pt reports feeling: No change Subjective: patient was seen at bedside for followup for adenocarcinoma of the esophagus and worsening lung pleural effusion. Patient states he feels better today. he does not have as much left sided tenderness or pain. chest tubes still in place. xray of chest was done last evening and shows a left consolidation or worsening pleural effusion on the left side as well. surgery is still primary for continuing care. Patient ate all his breakfast is sitting up in chair with family at bedside. He has no fever, chills, sweats, nausea or vomiting. pain is controlled and mild. Current Medications - Current Medications Current Medications: Active Medications Generic Name Dose Route Start Last Admin Trade Name Freq PRN Reason Stop Dose Admin Acetaminophen 650 mg 11/22/16 18:46 Tylenol VT PRN PRN Analgesia Enoxaparin Sodium 120 mg 11/23/16 09:00 11/27/16 08:37 Lovenox SUBQ 120 mg DAILY MARYBETH Administration Gabapentin 100 mg 11/22/16 21:00 11/27/16 08:35 Neurontin PO 100 mg BID MARYBETH Administration Guaifenesin/Codeine Phosphate 5 - 10 ml 11/22/16 18:46 Robitussin Ac PO Q4HR PRN Cough Hydromorphone HCl 0.5 mg 11/21/16 11:35 11/27/16 08:34 Dilaudid Inj IVP 0.5 mg Q2HR PRN Administration PAIN Hydromorphone HCl 2 - 4 mg 11/22/16 18:46 11/26/16 11:56 Dilaudid PO 2 mg Q4HR PRN Administration PAIN Acetaminophen 100 mls @ 400 mls/hr 11/21/16 12:00 11/27/16 06:03 Ofirmev IV 400 mls/hr Q6H MARYBETH Administration Piperacillin Sod/Tazobactam 100 mls @ 200 mls/hr 11/23/16 02:00 11/27/16 08:37 Sod 3.375 gm/ Sodium Chloride IV 200 mls/hr Q6H MARYBETH Administration Lorazepam 0.5 mg 11/23/16 22:21 11/26/16 19:41 Ativan PO 0.5 mg Q8H PRN Administration Anxiety Memantine 5 mg 11/23/16 09:00 11/27/16 08:35 Namenda PO 5 mg DAILY MARYBETH Administration Ondansetron HCl 4 mg 11/23/16 17:02 11/23/16 17:36 Zofran Inj IVP 4 mg Q4HR PRN Administration Nausea / Vomiting Oxycodone HCl 5 mg 11/21/16 19:25 11/27/16 08:35 Roxicodone PO 5 mg Q6HR PRN Administration PAIN Pantoprazole Sodium 40 mg 11/24/16 18:00 11/27/16 06:03 Protonix PO 40 mg BIDAC MARYBETH Administration Polyethylene Glycol 17 gm 11/22/16 09:00 11/27/16 08:35 Miralax PO 17 gm DAILY MARYBETH Administration Prochlorperazine Edisylate 10 mg 11/23/16 17:03 Compazine Inj IVP Q4HR PRN Nausea / Vomiting Senna 17.2 mg 11/23/16 16:58 Senokot PO DAILY PRN Constipation Sodium Chloride 10 ml 11/21/16 11:35 11/26/16 01:03 Normal Saline Flush 0.9% IVP 20 ml PRN PRN Administration NEEDED PER PROVIDER ORDERS Sodium Chloride 10 ml 11/21/16 14:00 11/27/16 08:38 Normal Saline Flush 0.9% IVP 20 ml Q8HR MARYBETH Administration Pantoprazole [Protonix] 40 mg PO BID 02/02/16 Enoxaparin [Lovenox] 120 mg SQ DAILY 03/22/16 HYDROmorphone [Dilaudid] 2 - 4 mg ORAL Q4HR PRN 08/23/16 Gabapentin 100 mg PO BID 09/06/16 guaiFENesin/CODEINE [Robitussin AC] 5 - 10 ml PO Q4HR PRN 11/02/16 Acetaminophen [Tylenol] 650 mg pe PO PRN PRN 11/10/16 Memantine [Namenda] 5 mg PO DAILY 11/16/16 Objective - Vital Signs/Intake & Output Reviewed Vital Signs: Yes Vital Signs: Vital Signs x48h Temp Pulse Resp BP Pulse Ox 11/27/16 08:10 36.6 C 85 18 114/66 95 Intake & Output: Intake & Output 11/24/16 11/25/16 11/26/16 11/27/16 23:59 23:59 23:59 23:59 Intake Total 1892 0583 1872 200 Output Total 2717 5955 2051 850 Balance 815 -099 22 -650 - Objective General Appearance: positive: No acute distress, Alert, Mild distress Eyes Bilateral: positive: Normal inspection, PERRL, EOMI ENT: positive: ENT inspection nml, Pharynx nml, No signs of dehydration Neck: positive: Nml inspection, Thyroid nml, No JVD, Trachea midline Respiratory: positive: Chest non-tender (tender around right upper flank around chest tube site), No respiratory distress, Other (diminished breath sounds in the right and left lower lobe) Cardiovascular: positive: Regular rate & rhythm, No murmur, No gallop Abdomen: positive: Non-tender, No organomegaly, Nml bowel sounds, No distention Back: positive: Nml inspection Skin: positive: Color nml, No rash, Warm, Dry Extremities: positive: Non-tender, Full ROM, Nml appearance, Pedal edema ( moderate to bilateral feet) Neurologic/Psychiatric: positive: Oriented x3, CN's nml (2-12), Motor nml, Sensation nml, Mood/affect nml - Lab Results Fish Bones: 11/27/16 08:15 11/27/16 08:15 Other Labs: Lab Results x24hrs 11/27/16 11/27/16 Range/Units 08:15 08:15 WBC 12.4 H (4.8-10.8) x10^3/uL RBC 2.93 L (4.70-6.10) 10^6/uL Hgb 8.5 L (14.0-18.0) g/dL Hct 26.4 L (42.0-52.0) % MCV 90.1 (80.0-94.0) fL MCH 29.0 (27.0-31.0) pg MCHC 32.2 (32.0-36.0) g/dL RDW 20.2 H (12.0-15.0) % Plt Count 238 (130-450) 10^3/uL MPV 6.8 L (7.4-11.4) fL Neut # 9.7 H (1.5-6.6) 10^3/uL Lymph # 0.5 L (1.5-3.5) 10^3/uL [place] # 1.2 H (0.0-1.0) 10^3/uL Eos # 1.0 H (0.0-0.7) 10^3/uL Baso # 0.1 (0.0-0.1) 10^3/uL Absolute Nucleated RBC 0.00 x10^3/uL Nucleated RBCs 0.0 /100WBC Sodium 134 L (135-145) mmol/L Potassium 3.7 (3.5-5.0) mmol/L Chloride 104 (101-111) mmol/L Carbon Dioxide 23 (21-32) mmol/L Anion Gap 7.0 (6-13) BUN 11 (6-20) mg/dL Creatinine 0.8 (0.6-1.2) mg/dL Estimated GFR (MDRD) 96 (>89) Glucose 101 H (70-100) mg/dL Calcium 7.7 L (8.5-10.3) mg/dL - Diagnostic Imaging Diagnostic Imaging Results: positive: Final report reviewed Diagnostic Imaging Comments: CT of chest with followup chest xray: medium left sided left pleural effusions not seen on prior film. Assessment/Plan - Problem List (1) Stage IV adenocarcinoma of esophagus Impression: acute with metastasis to the left and right lower lobes with pleural effusions. worsening and continues with chest tubes and surgery as primary. continue to monitor WBC and output in chest tube. (2) Malignant pleural effusion Impression: ongoing with worsening metastasis probable in the left lower lobe. continue with surgery as primary. pain medications as needed and monitoring of CBC and electrolytes with daily lab draws. pallative care has consulted and patient is considering hospice (3) Complication of chest tube Impression: resolving. acute with bilateral pleural effusion with small pulmonary metastasis. Qualifiers: Encounter type: initial encounter Qualified Code(s): T85.9XXA - Unspecified complication of internal prosthetic device, implant and graft, initial encounter (4) Hyponatremia Impression: acute with metastasis to bilateral lower lobe of lungs. monitor electrolytes with daily labs
[2016-11-27] MEDS ORDERED: SENNA 8.6 MG TABLET PO PRN ×2 (12:01→12:15)
[2016-11-27] MEDS ORDERED: SODIUM CHLORIDE 0.9% 1,000 ML IV ONE (12:54)
--- NOTE | 2016-11-27 16:12 | PROVIDER PROGRESS NOTE ---
Palliative Care Follow Up - Referral Referring Provider: Dr. 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 He continues to have difficulty with recurrent pleural effusions, he currently is hospitalized after a pleurocentesis, but unfortunately has developed a chest tube leak. His most recent CT scan does show moderate persistent right base pneumothorax and a partially collapsed right lung with airspace disease and consolidation noted. It is also noted is right posterior pleural calcifications. It is unclear at this point, when this current complication is going to be resolved. This has been very frustrating for the patient, as he is feeling like time is clicking away as far as that might be available for treatment options for extending his quantity of life. He did present on 11/24 with increasing abdominal distention which prompted a CT of the abdomen and pelvis. This did show some mild perihepatic ascites, but more important it showed increased liver metastases compared to prior CT. He does have significant third spacing, with swelling through his mid abdominal sacral area into now both thighs, scrotum, and down into his calf area. He reports this has increased over the last 48 hours and is uncomfortable. His goal is to come to some consensus, and how best to manage his disease, and move forward with his treatment plan. In the context of these wishes I did followup with Dr. Mijares and Dr. Haynes covering for Dr. Landers. Social History - Living Situation Living arrangement: At home Living Situation: With spouse/s.o. Support System: Has very supportive friends and family, Halle experiencing some caregiver fatigue as they are hoping for discharge soon Medications/Allergies - Medications Active Medication List: Active Medications Acetaminophen (Tylenol) 650 mg SC PRN PRN PRN Reason: Analgesia Enoxaparin Sodium (Lovenox) 120 mg SUBQ DAILY MARYBETH Last Admin: 11/27/16 08:37 Dose: 120 mg Furosemide (Lasix Inj 40 Mg Vial) 20 mg IVP DAILY MARYBETH Gabapentin (Neurontin) 100 mg PO BID MARYBETH Last Admin: 11/27/16 08:35 Dose: 100 mg Guaifenesin/Codeine Phosphate (Robitussin Ac) 5 - 10 ml PO Q4HR PRN PRN Reason: Cough Hydromorphone HCl (Dilaudid Inj) 0.5 mg IVP Q2HR PRN PRN Reason: PAIN Last Admin: 11/27/16 08:34 Dose: 0.5 mg Hydromorphone HCl (Dilaudid) 2 - 4 mg PO Q4HR PRN PRN Reason: PAIN Last Admin: 11/26/16 11:56 Dose: 2 mg Acetaminophen (Ofirmev) 100 mls @ 400 mls/hr IV Q6H [facility] Last Admin: 11/27/16 12:57 Dose: 400 mls/hr Piperacillin Sod/Tazobactam (Sod 3.375 gm/ Sodium Chloride) 100 mls @ 200 mls/ hr IV Q6H [facility] Last Admin: 11/27/16 14:18 Dose: 200 mls/hr Lorazepam (Ativan) 0.5 mg PO Q8H PRN PRN Reason: Anxiety Last Admin: 11/26/16 19:41 Dose: 0.5 mg Memantine (Namenda) 5 mg PO DAILY [facility] Last Admin: 11/27/16 08:35 Dose: 5 mg Ondansetron HCl (Zofran Inj) 4 mg IVP Q4HR PRN PRN Reason: Nausea / Vomiting Last Admin: 11/23/16 17:36 Dose: 4 mg Oxycodone HCl (Roxicodone) 5 mg PO Q6HR PRN PRN Reason: PAIN Last Admin: 11/27/16 08:35 Dose: 5 mg Pantoprazole Sodium (Protonix) 40 mg PO BIDAC [facility] Last Admin: 11/27/16 06:03 Dose: 40 mg Polyethylene Glycol (Miralax) 17 gm PO DAILY [facility] Last Admin: 11/27/16 08:35 Dose: 17 gm Prochlorperazine Edisylate (Compazine Inj) 10 mg IVP Q4HR PRN PRN Reason: Nausea / Vomiting Senna (Senokot) 8.6 mg PO DAILY PRN PRN Reason: Constipation Senna (Senokot) 17.2 mg PO DAILY PRN PRN Reason: Constipation Last Admin: 11/27/16 12:10 Dose: 17.2 mg Sodium Chloride (Normal Saline Flush 0.9%) 10 ml IVP PRN PRN PRN Reason: NEEDED PER PROVIDER ORDERS Last Admin: 11/26/16 01:03 Dose: 20 ml Sodium Chloride (Normal Saline Flush 0.9%) 10 ml IVP Q8HR [facility] Last Admin: 11/27/16 08:38 Dose: 20 ml Pantoprazole [Protonix] 40 mg PO BID 02/02/16 Enoxaparin [Lovenox] 120 mg SQ DAILY 03/22/16 HYDROmorphone [Dilaudid] 2 - 4 mg ORAL Q4HR PRN 08/23/16 Gabapentin 100 mg PO BID 09/06/16 guaiFENesin/CODEINE [Robitussin AC] 5 - 10 ml PO Q4HR PRN 11/02/16 Acetaminophen [Tylenol] 650 mg pe PO PRN PRN 11/10/16 Memantine [Namenda] 5 mg PO DAILY 11/16/16 - Allergies Allergies/Adverse Reactions: Allergies Allergy/AdvReac Type Severity Reaction Status Date / Time No Known Drug Allergies Allergy Verified 09/27/16 17:38 Review of Systems - Constitutional Constitutional: reports: Fatigue, Weakness - Eyes Eyes: reports: Corrective lenses - Ears, Nose & Throat Ears, Nose & Throat: reports: Other (Continues with dry mouth). denies: Nosebleeds - Respiratory Respiratory: reports: SOB at rest, SOB with exertion. denies: Cough - Gastrointestinal Gastrointestinal: reports: Abdominal distention, Constipation (i.), Bloating, Poor appetite ( do some meds which [id number] the client). denies: Bloody stools - Genitourinary Genitourinary: reports: Urgency - Musculoskeletal Musculoskeletal: reports: Muscle weakness - Integumentary Integumentary: reports: Dryness, Other (exit site with some swelling) - Neurological Neurological: reports: General weakness, Other (has been limited to bed with chest tube) - Psychiatric Psychiatric: reports: Anxiety - Hematologic/Lymphatic Hematologic/Lymphatic: reports: Anemia (patient with bloody pleural fluid; Hct 26.4), Recurrent infections (white count up to 12.4; on AB) - All Other Systems All Other Systems: reports: Reviewed and negative Physical Examination - Vital Signs Vital Signs: Vital Signs x48h Temp Pulse Resp BP Pulse Ox 11/27/16 08:10 36.6 C 85 18 114/66 95 - Physical Exam General Appearance: positive: Mild distress, Anxious Eyes Bilateral: positive: Conjunctivae nml. negative: No scleral icterus ENT: positive: Dry mucous membranes, Other (no s/s candidiasis) Neck: positive: No JVD, Trachea midline Respiratory: positive: Other (gurgling noted over right lung field; left without bs up to 50%) Cardiovascular: positive: Tachycardia Abdomen: positive: Tenderness, Abnml bowel sounds (sluggish; no BM since 11/24) Skin: positive: Pallor. negative: Jaundice Extremities: positive: Pedal edema (increased swelling noted and pitting up to thighs and sacral area; upper extremity muscle wasting;) Neurologic/Psychiatric: positive: Oriented x3, Depressed mood/affect Palliative Care - POLST Patient has POLST: Yes POLST Status: DNR, Limited Interventions Pain: Pain unchanged, Location (mostly at exit site of chest tube; controlled with intermittent oxycodone) Drowsiness: None Nausea: Mild (1-3) (in am on awakening only) Anxiety: Moderate (4-6) (noted with extended hospital stay) Dyspnea: Moderate (4-6) Anorexia: Moderate (4-6), Weight loss (though is not "loosing weight" less intake and appears more cachetic in appearance; suspect weight is with third spacing) Insomnia: Sleep improved Constipation: Yes, Opoid induced, Unmanaged, Comment (spoke with RN; will give 2 Senokot now) Feelings of wellbeing/Perceived Quality of Life: Worsening Performance Status: Patient baseline has been independent though will limited by his pleural effusions and shortness of breath. He is currently mostly bedbound secondary to chest tubes. - Palliative Care Discussion: Surrogate decision maker- his Halle Yang. Shared with patient conversations with provider is, in the context of hearing patient was interested in pursuing hospice. I did speak with Dr. Mijares, she was not aware he was in the hospital, and will make an effort to see him on Sunday. Reviewed his scans and his current dilemma with the hospitalization for the pleural effusions. Reviewed in her opinion, as far as what might be possible, given the patient's anxiety and wanting to continue on treatment. She did feel the patient may still have an opportunity to treat that would need to review the records, the scans, and weigh benefits and burdens of various options. Discussed did not completed his radiation for brain metastases, this will impact his care plan. Also followed up with Dr. Haynes, as Dr. Landers, is on vacation. He is completed about 7 visits with a remaining. In reviewing his chart, he does have 19 lesions in the brain, and feels this would still be a major priority to complete treatment. Reviewed his current complications, and recommended an appointment as soon as he discharged, on how to proceed and give her an competing priorities. Did ask, ID was not on dexamethasone, reports he would only use fact if he became symptomatic, and concern for edema. He suspects with a small lesions, this is not necessary. Dr. Ayoub is planning to review current situation with his pleural effusions and chest tubes, as well as his abdominal CT scan to assist patient in understanding the severity of his current situation. Hospice had been introduced as an option to the patient. In discussing hospice criteria, patient needs to be deemed 6 months or less as far as prognosis, as well as his focus on comfort and not treatment. Though patient does recognize his treatments are palliative in nature, but he does have a serious disease, he continues want to push forward as far as pursuing treatment and extending his quantity of life. Did introduce, that with patient's extending liver metastases, and no treatment, his prognosis is likely is less than 6 months. Did discuss hospice as part of the continuum, it may be a choice the patient makes, or it may be at that time the patient has no further treatment options. Results - Lab Results Fish Bones: 11/27/16 08:15 11/27/16 08:15 Lab and Imaging Results: Lab Results x24hrs 11/27/16 11/27/16 Range/Units 08:15 08:15 WBC 12.4 H (4.8-10.8) x10^3/uL RBC 2.93 L (4.70-6.10) 10^6/uL Hgb 8.5 L (14.0-18.0) g/dL Hct 26.4 L (42.0-52.0) % MCV 90.1 (80.0-94.0) fL MCH 29.0 (27.0-31.0) pg MCHC 32.2 (32.0-36.0) g/dL RDW 20.2 H (12.0-15.0) % Plt Count 238 (130-450) 10^3/uL MPV 6.8 L (7.4-11.4) fL Neut # 9.7 H (1.5-6.6) 10^3/uL Lymph # 0.5 L (1.5-3.5) 10^3/uL [place] # 1.2 H (0.0-1.0) 10^3/uL Eos # 1.0 H (0.0-0.7) 10^3/uL Baso # 0.1 (0.0-0.1) 10^3/uL Absolute Nucleated RBC 0.00 x10^3/uL Nucleated RBCs 0.0 /100WBC Sodium 134 L (135-145) mmol/L Potassium 3.7 (3.5-5.0) mmol/L Chloride 104 (101-111) mmol/L Carbon Dioxide 23 (21-32) mmol/L Anion Gap 7.0 (6-13) BUN 11 (6-20) mg/dL Creatinine 0.8 (0.6-1.2) mg/dL Estimated GFR (MDRD) 96 (>89) Glucose 101 H (70-100) mg/dL Calcium 7.7 L (8.5-10.3) mg/dL Impression and Recommendations - Palliative Care Impression: This is a feisty 66-year-old gentleman with continued complications regarding progressive tumor burden of his Stage IV GE Adenocarcinoma with metastases to the brain, bone, and liver. His goals have remains steadfast, in further pursuing treatment. He feels strongly that it would still be beneficial as far as extending his life. He does not deny that he is seriously ill, but continues to hope for the best, and is currently wanting to pursue treatment, so it is not a hospice candidate. Did contact other providers, and attempts to gather information, I will be of benefit to help the patient in weighing decisions regarding has current care plan. The most immediate acute issue, remains his pleural effusions, and his current air leak. Recommendations/Counseling Done: 1. Metastatic stage IV GE adenocarcinoma. Counseling regarding input from oncologist, and radiation oncologist, as well as hospice criteria. Surgeon to meet with patient and end of day to review current situation with chest tubes. Priority is to address his acute symptoms of pleural effusion, air leak, increasing white count, and third spacing. 2. Constipation opiate induced. Patient instructed to take his when necessary senna, important to focus on keeping his bowels moving, soft, and no further rectal irritation. 3. Acute on chronic pain. Acute pain attributed to chest tube site. Currently controlled per patient's report. 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 4. Advanced care planning. In attempts to me patient's goals, regarding information on further treatment planning, did contact a specialists and relayed information as best as they could weigh in. Counseling regarding hospice and hospice benefit, goals of care in the context of weighing benefits and burdens, and psychosocial support provided. Encouraged to reflect on what is most important to him, does feel has addressed all his legal and financial issues, and feels for him, pursuing further treatment is consistent with who he is. Time Spent: 60 minutes spent in counseling regarding goals of care, hospice benefit, and treatment options. Coordination of care with oncologist, radiation oncologist, hospitalists, and surgeon in attempts to provide cohesive find. [place] [facility] [place]. Mijares's request to schedule visit for Mr. Yang on Sunday.
--- NOTE | 2016-11-27 17:30 | PROVIDER PROGRESS NOTE ---
Subjective - General Admit Date: 11/21/16 Procedure Date: 11/21/16 Post Op Days: 6 Procedure Performed: Tube thoracostomy x2 right chest with drainage of 2600 mL of malignant pleu - Review of Systems Wound/Incisions: positive: Dressing dry and intact, No drainage (From the dressing or wound - less drainage from inside the chest), Drainage Drain Type: 28 Fr straight chest tube and 32 Fr right angled chest tube Drain Output Description: serosanguinous Approximate mls Output: Total for both = 420 mL General: positive: Fatigue (Mild.), Other (Patient complained of abdominal distention last night and CT ordered. He expelled a lot of gas after the CT and no feels better, but still a bit bloated.) HEENT: positive: No symptoms Pulmonary: positive: Pleuritic chest pain (Improved.). negative: Shortness of breath Cardiovascular: positive: No symptoms Gastrointestinal: positive: Other (mild persistent abdominal discomfort and bloating). negative: Nausea, Vomiting Musculoskeletal: positive: No symptoms Skin: positive: Pallor. negative: Jaundice Psychiatric: positive: Depression, Anxiety All Other Systems: positive: Reviewed and negative Objective - Patient Data Reviewed Vital Signs: Yes Intake & Output: Intake and Output Totals x24h 11/25/16 11/26/16 11/27/16 23:59 23:59 23:59 Intake Total 2273 1872 1440 Output Total 3110 1850 1740 Balance -837 22 -300 - Lab Results Lab Results: 11/27/16 08:15 11/27/16 08:15 Other Lab Results: Lab Results x24hrs 11/27/16 11/27/16 Range/Units 08:15 08:15 WBC 12.4 H (4.8-10.8) x10^3/uL RBC 2.93 L (4.70-6.10) 10^6/uL Hgb 8.5 L (14.0-18.0) g/dL Hct 26.4 L (42.0-52.0) % MCV 90.1 (80.0-94.0) fL MCH 29.0 (27.0-31.0) pg MCHC 32.2 (32.0-36.0) g/dL RDW 20.2 H (12.0-15.0) % Plt Count 238 (130-450) 10^3/uL MPV 6.8 L (7.4-11.4) fL Neut # 9.7 H (1.5-6.6) 10^3/uL Lymph # 0.5 L (1.5-3.5) 10^3/uL [place] # 1.2 H (0.0-1.0) 10^3/uL Eos # 1.0 H (0.0-0.7) 10^3/uL Baso # 0.1 (0.0-0.1) 10^3/uL Absolute Nucleated RBC 0.00 x10^3/uL Nucleated RBCs 0.0 /100WBC Sodium 134 L (135-145) mmol/L Potassium 3.7 (3.5-5.0) mmol/L Chloride 104 (101-111) mmol/L Carbon Dioxide 23 (21-32) mmol/L Anion Gap 7.0 (6-13) BUN 11 (6-20) mg/dL Creatinine 0.8 (0.6-1.2) mg/dL Estimated GFR (MDRD) 96 (>89) Glucose 101 H (70-100) mg/dL Calcium 7.7 L (8.5-10.3) mg/dL - Imaging Results Radiology Imaging: positive: Prelim report reviewed, Final report received - Current Medications Current Medications: Current Medications Generic Name Dose Route Start Last Admin Trade Name Freq PRN Reason Stop Dose Admin Enoxaparin Sodium 120 mg 11/23/16 09:00 11/27/16 08:37 Lovenox SUBQ 120 mg DAILY MARYBETH Administration Gabapentin 100 mg 11/22/16 21:00 11/27/16 08:35 Neurontin PO 100 mg BID MARYBETH Administration Hydromorphone HCl 0.5 mg 11/21/16 11:35 11/27/16 08:34 Dilaudid Inj IVP 0.5 mg Q2HR PRN Administration PAIN Hydromorphone HCl 2 - 4 mg 11/22/16 18:46 11/26/16 11:56 Dilaudid PO 2 mg Q4HR PRN Administration PAIN Acetaminophen 100 mls @ 400 mls/hr 11/21/16 12:00 11/27/16 12:57 Ofirmev IV 400 mls/hr Q6H MARYBETH Administration Piperacillin Sod/Tazobactam 100 mls @ 200 mls/hr 11/23/16 02:00 11/27/16 14:18 Sod 3.375 gm/ Sodium Chloride IV 200 mls/hr Q6H MARYBETH Administration Lorazepam 0.5 mg 11/23/16 22:21 11/26/16 19:41 Ativan PO 0.5 mg Q8H PRN Administration Anxiety Memantine 5 mg 11/23/16 09:00 11/27/16 08:35 Namenda PO 5 mg DAILY MARYBETH Administration Ondansetron HCl 4 mg 11/23/16 17:02 11/23/16 17:36 Zofran Inj IVP 4 mg Q4HR PRN Administration Nausea / Vomiting Oxycodone HCl 5 mg 11/21/16 19:25 11/27/16 08:35 Roxicodone PO 5 mg Q6HR PRN Administration PAIN Pantoprazole Sodium 40 mg 11/24/16 18:00 11/27/16 16:57 Protonix PO 40 mg BIDAC MARYBETH Administration Polyethylene Glycol 17 gm 11/22/16 09:00 11/27/16 08:35 Miralax PO 17 gm DAILY MARYBETH Administration Senna 17.2 mg 11/27/16 12:15 11/27/16 12:10 Senokot PO 17.2 mg DAILY PRN Administration Constipation Sodium Chloride 10 ml 11/21/16 11:35 11/26/16 01:03 Normal Saline Flush 0.9% IVP 20 ml PRN PRN Administration NEEDED PER PROVIDER ORDERS Sodium Chloride 10 ml 11/21/16 14:00 11/27/16 08:38 Normal Saline Flush 0.9% IVP 20 ml Q8HR MARYBETH Administration - Physical Exam Wound/Incisions: positive: Healing well (Posterior chest tube removed and patient tolerated it well.) General Appearance: positive: No acute distress Eyes Bilateral: positive: No lid inflammation, Conjunctivae nml, No scleral icterus Neck: positive: Trachea midline Respiratory: positive: Chest non-tender, No respiratory distress, Other (Rub and coarse crackles on RIGHT. Slightly decreased breath sounds on LEFT.) Abdomen: positive: Nml bowel sounds Extremities: positive: Nml appearance Neurologic/Psychiatric: positive: Oriented x3 Impression/Plan - Problem List Problem List: D6 s/p right sided tube thoracostomy for malignant pleural effusion. 1) FEN Again had a talk regarding need for increased protein intake. Patient vocalized an understanding. Some extravascular fluid may have been fluid overload but patient responded well to diuretics 2) Pulmonary Posterior chest tube removed uneventfully and patient tolerated it well. Will check CXR tomorrow and if hemopneumothorax no worse the consideration of removing the last chest tube. 3) Pain Currently managed appropriately. 4) Palliation Spoke with Alis Jameson today regarding long-term plans. Palliation is still achievable via brain radiation and some chemotherapeutic regimens. Will continue to strive to get the patient out of the hospital in order that these treatments can be started.
[2016-11-28] MEDS: ACETAMINOPHEN 1,000 MG/100 ML 100 ML IV SCH ×4 (00:19→17:46)
[2016-11-28] MEDS: HYDROmorphone 2 MG TABLET PO PRN ×3 (00:19→21:12)
[2016-11-28] MEDS: PIPERACILLIN/TAZOBACTAM 3.375 GM in SODIUM CHLORIDE 0.9% MINIBAG 100 ML IV SCH ×4 (02:56→20:09)
[2016-11-28 05:58] LABS: BASOPHILS # (AUTO) 0.1 10^3/uL (0.0-0.1); BASOPHILS % (AUTO) 0.9 %; EOSINOPHILS # (AUTO) 1.3 10^3/uL (0.0-0.7); EOSINOPHILS % (AUTO) 9.6 %; HCT - HEMATOCRIT 25.3 % (42.0-52.0); HGB - HEMOGLOBIN 8.2 g/dL (14.0-18.0); LYMPHOCYTES # (AUTO) 0.6 10^3/uL (1.5-3.5); LYMPHOCYTES % (AUTO) 4.1 %; MEAN CORPUSCULAR HEMOGLOBIN 29.1 pg (27.0-31.0); MEAN CORPUSCULAR HGB CONC 32.2 g/dL (32.0-36.0); MEAN CORPUSCULAR VOLUME 90.5 fL (80.0-94.0); MEAN PLATELET VOLUME 7.4 fL (7.4-11.4); MONOCYTES # (AUTO) 1.4 10^3/uL (0.0-1.0); MONOCYTES % (AUTO) 10.5 %; NEUTROPHILS # (AUTO) 10.2 10^3/uL (1.5-6.6); NEUTROPHILS % (AUTO) 74.9 %; RED CELL DISTRIBUTION WIDTH 20.3 % (12.0-15.0); UNCORRECTED WHITE BLOOD COUNT 13.5 x10^3/uL; WHITE BLOOD COUNT 13.5 x10^3/uL (4.8-10.8)
[2016-11-28 06:09] LABS: ALBUMIN/GLOBULIN RATIO 0.7 (1.0-2.2); CALCIUM 7.7 mg/dL (8.5-10.3); CREATININE 0.6 mg/dL (0.6-1.2); POTASSIUM 3.8 mmol/L (3.5-5.0); TOTAL PROTEIN 4.7 g/dL (6.7-8.2)
[2016-11-28 06:28] LABS: PLATELET ESTIMATE, MANUAL NORMAL (130-450,000) (NORMAL); PLATELET MORPHOLOGY NORMAL APPEARANCE (NORMAL)
[2016-11-28] MEDS: PANTOPRAZOLE 40 MG TABLET PO SCH ×2 (06:31→15:56)
[2016-11-28] MEDS: SODIUM CHLORIDE FLUSH 0.9% 10 ML SYRINGE IVP SCH ×4 (06:32→20:58)
[2016-11-28] MEDS: SODIUM CHLORIDE FLUSH 0.9% 10 ML SYRINGE IVP PRN (08:37)
[2016-11-28] MEDS: ONDANSETRON 4 MG/2 ML VIAL IVP PRN (08:37)
[2016-11-28] MEDS: GABAPENTIN 100 MG CAPSULE PO SCH ×2 (08:48→20:58)
[2016-11-28] MEDS: MEMANTINE 5 MG TABLET PO SCH (08:48)
[2016-11-28] MEDS: FUROSEMIDE 40 MG/4 ML VIAL IVP SCH (08:48)
[2016-11-28] MEDS: ENOXAPARIN 120 MG/0.8 ML SYRINGE SUBQ SCH (08:48)
[2016-11-28] MEDS: POLYETHYLENE GLYCOL 3350 17 GM PACKET PO SCH (08:48)
--- NOTE | 2016-11-28 08:50 | XRAY Preliminary Report ---
Exam: XR Chest 2 View PA/LAT IMPRESSION: 1. Increased medium right hydropneumothorax with single right chest tube in place. Interval removal o f a second right chest tube. 2. Stable medium left pleural effusion and bilateral airspace opacities.. [facility] SITE ID: [id number]
--- NOTE | 2016-11-28 08:52 | XRAY Report ---
EXAM: CHEST RADIOGRAPHY EXAM DATE: 11/28/2016 06:08 AM. CLINICAL HISTORY: Chest tube, small pneumo, on water seal. COMPARISON: 11/27/2016, 11/26/2016 chest radiographs. Correlation made with chest CT of 11/23/2016. TECHNIQUE: 2 views. FINDINGS: Lungs/Pleura: Since 11/27/2016, slightly increased medial right hydropneumothorax. Stable medium left pleural effusion. Stable scattered mild bilateral airspace opacities. Mediastinum: Heart and mediastinal contours are unremarkable. Other: Interval removal of apically directed right chest tube. Right basilar chest tube in stable pos ition. Left subclavian Port-A-Cath tip in the superior vena cava. Inferior vena cava filter in place. IMPRESSION: 1. Increased medium right hydropneumothorax with single right chest tube in place. Interval removal o f a second right chest tube. 2. Stable medium left pleural effusion and bilateral airspace opacities.. [facility] Referring Provider Line: [phone] SITE ID: [id number]
[2016-11-28] MEDS ORDERED: FUROSEMIDE 40 MG/4 ML VIAL IVP SCH (09:00)
--- NOTE | 2016-11-28 09:29 | PROVIDER PROGRESS NOTE ---
Subjective - Prog Note Date Prog Note Date: 11/28/16 Prog Note Time: 09:28 - Subjective Pt reports feeling: No change Subjective: Patient wanting to seek chemotherapy and other options for care. he states he is feeling optimistic. He is eating a little but still feels bloated. he has no shortness of breath sitting but does when up and walking. chest pain is improving on right side but now feeling some pain along the left lower side and back where the new pleural effusion is Current Medications - Current Medications Current Medications: Abnormal Lab Results 11/27/16 11/27/16 11/28/16 08:15 08:15 05:00 WBC 12.4 x10^3/uL H x10^3/uL 13.5 x10^3/uL H x10^3/uL (4.8-10.8) (4.8-10.8) RBC 2.93 10^6/uL L 10^6/uL 2.80 10^6/uL L 10^6/uL (4.70-6.10) (4.70-6.10) Hgb 8.5 g/dL L g/dL 8.2 g/dL L g/dL (14.0-18.0) (14.0-18.0) Hct 26.4 % L % 25.3 % L % (42.0-52.0) (42.0-52.0) RDW 20.2 % H % 20.3 % H % (12.0-15.0) (12.0-15.0) MPV 6.8 fL L fL (7.4-11.4) Neut # 9.7 10^3/uL H 10^3/uL 10.2 10^3/uL H 10^3/uL (1.5-6.6) (1.5-6.6) Lymph # 0.5 10^3/uL L 10^3/uL 0.6 10^3/uL L 10^3/uL (1.5-3.5) (1.5-3.5) [place] # 1.2 10^3/uL H 10^3/uL 1.4 10^3/uL H 10^3/uL (0.0-1.0) (0.0-1.0) Eos # 1.0 10^3/uL H 10^3/uL 1.3 10^3/uL H 10^3/uL (0.0-0.7) (0.0-0.7) Sodium 134 mmol/L L mmol/L (135-145) Glucose 101 mg/dL H mg/dL (70-100) Calcium 7.7 mg/dL L mg/dL (8.5-10.3) AST Alkaline Phosphatase Total Protein Albumin Albumin/Globulin Ratio 11/28/16 05:00 WBC RBC Hgb Hct RDW MPV Neut # Lymph # [place] # Eos # Sodium Glucose Calcium 7.7 mg/dL L mg/dL (8.5-10.3) AST 51 IU/L H IU/L (10-42) Alkaline Phosphatase 885 IU/L H IU/L (42-121) Total Protein 4.7 g/dL L g/dL (6.7-8.2) Albumin 1.9 g/dL L g/dL (3.2-5.5) Albumin/Globulin Ratio 0.7 L (1.0-2.2) Objective - Vital Signs/Intake & Output Reviewed Vital Signs: Yes Vital Signs: Last Vital Signs Temp 36.4 C L 11/28/16 10:00 Pulse 90 11/28/16 10:00 Resp 17 11/28/16 10:00 BP 105/68 11/28/16 10:00 Pulse Ox 96 11/28/16 10:00 Intake & Output: Intake & Output 11/25/16 11/26/16 11/27/16 11/28/16 23:59 23:59 23:59 23:59 Intake Total 2273 1872 1864 200 Output Total 3110 1850 2075 375 [facility] -837 22 -211 -175 - Objective General Appearance: positive: No acute distress, Alert Eyes Bilateral: positive: Normal inspection, PERRL ENT: positive: ENT inspection nml, Pharynx nml, No signs of dehydration Neck: positive: Nml inspection, Thyroid nml, No JVD, Trachea midline Respiratory: positive: Chest non-tender, No respiratory distress, Other ( diminished with gurgling in right lower lob) Cardiovascular: positive: Regular rate & rhythm, No murmur, No gallop Abdomen: positive: Non-tender, Nml bowel sounds, No distention. negative: Guarding, Rebound Back: positive: Nml inspection. negative: CVA tenderness (R), CVA tenderness (L ) Skin: positive: Color nml, No rash, Warm, Dry Extremities: positive: Non-tender, Full ROM, Nml appearance, Other (edema to upper left and right thigh) Neurologic/Psychiatric: positive: Oriented x3, CN's nml (2-12), Motor nml, Sensation nml, Mood/affect nml, Weakness, Depressed mood/affect - Lab Results Fish Bones: 11/28/16 05:00 11/28/16 05:00 Other Labs: Lab Results x24hrs 11/28/16 11/28/16 Range/Units 05:00 05:00 WBC 13.5 H (4.8-10.8) x10^3/uL RBC 2.80 L (4.70-6.10) 10^6/uL Hgb 8.2 L (14.0-18.0) g/dL Hct 25.3 L (42.0-52.0) % MCV 90.5 (80.0-94.0) fL MCH 29.1 (27.0-31.0) pg MCHC 32.2 (32.0-36.0) g/dL RDW 20.3 H (12.0-15.0) % Plt Count 223 (130-450) 10^3/uL MPV 7.4 (7.4-11.4) fL Neut # 10.2 H (1.5-6.6) 10^3/uL Lymph # 0.6 L (1.5-3.5) 10^3/uL [place] # 1.4 H (0.0-1.0) 10^3/uL Eos # 1.3 H (0.0-0.7) 10^3/uL Baso # 0.1 (0.0-0.1) 10^3/uL Absolute Nucleated RBC 0.00 x10^3/uL Nucleated RBCs 0.0 /100WBC Manual Slide Review Indicated Platelet Estimate NORMAL (130-450,000) (NORMAL) Platelet Morphology NORMAL APPEARANCE (NORMAL) RBC Morph Micro Appear 1+ SPHEROCYTES (NORMAL) Sodium 135 (135-145) mmol/L Potassium 3.8 (3.5-5.0) mmol/L Chloride 105 (101-111) mmol/L Carbon Dioxide 24 (21-32) mmol/L Anion Gap 6.0 (6-13) BUN 11 (6-20) mg/dL Creatinine 0.6 (0.6-1.2) mg/dL Estimated GFR (MDRD) 134 (>89) Glucose 86 (70-100) mg/dL Calcium 7.7 L (8.5-10.3) mg/dL Total Bilirubin 1.0 (0.2-1.0) mg/dL AST 51 H (10-42) IU/L ALT 38 (10-60) IU/L Alkaline Phosphatase 885 H (42-121) IU/L Total Protein 4.7 L (6.7-8.2) g/dL Albumin 1.9 L (3.2-5.5) g/dL Globulin 2.8 (2.1-4.2) g/dL Albumin/Globulin Ratio 0.7 L (1.0-2.2) - Diagnostic Imaging Diagnostic Imaging Results: positive: Final report reviewed - Other Results/Comments Other Results/Comments: Time spent with patient was 40 minutes in discussion and assessment Assessment/Plan - Problem List (1) Malignant pleural effusion Impression: aute with chest tube placement. patient is still seeking to have chemotherapy and is hopeful to improve. pallative care has been addressed. patient not wanting hospice at this time. continue with planned interventions and with surgery as primary and plan to get patient home as soon as possible (2) Complication of chest tube Impression: resolved. patient has one tube at this time and putting out fluid with no leak. continue to monitor effusion and size. Qualifiers: Encounter type: initial encounter Qualified Code(s): T85.9XXA - Unspecified complication of internal prosthetic device, implant and graft, initial encounter (3) Hyponatremia Impression: acute and resolved. 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 continue to monitor daily labs and with surgery as primary. patient still wanting chemotherapy and Dr Mijares has been notified with assist from Alis Jameson
[2016-11-28] MEDS: oxyCODONE 5 MG TABLET PO PRN ×2 (10:44→17:54)
[2016-11-28] MEDS: HYDROmorphone 1 MG/ML CARPUJECT IVP PRN (10:54)
--- NOTE | 2016-11-28 14:10 | PROVIDER PROGRESS NOTE ---
Palliative Care Follow Up - Referral Referring Provider: Dr. Ayoub Time of Visit: [id number] Referral setting: Hospitalized patient Referral Reason: Goals of Care - Information Sources Records Reviewed: RN notes reviewed, Other History obtained from: Patient, Family (Halle at bedside) Exam limitations: No limitations - History of Present Illness Update Brief HPI Update: Please see 11/23 visit for complete HPI. 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 He underwent pleurodesis, has had prolonged hospitalization as waiting for air leak to resolve. He did have one of two chest tubes removed yesterday, and and his chest x-ray this morning showed a slight increase in his right hydro- pneumothorax. He continues with a medium but stable left pleural effusion as well.of most concern, is his CT scan of the abdomen and pelvis which showed incr liver metastases. He does present today with improved lower extremity edema, he does have lower extremity pitting but smaller in size though left side greater than right. His edema does does extend up into his thighs, through his lower abdominal sacral area, up to lower rib cage. Of note there is increased left swelling on thoracic side than right. He does complain of increased pain and tenderness in his coccyx. He has continued to be mostly bedbound related to chest tubes. He continues to perseverate somewhat on the "what next", recognizing that we airway been on the resolution of his acute problems currently. Patient is a air duct mechanic by nature, and tries to understand the workings of all of his body in the context of his cancer, treatment, and future options. Social History - Living Situation Living arrangement: At home Living Situation: With spouse/s.o. Support System: Has many friends visiting, supportive yarsanism community, and son is coming from [facility] this . Medications/Allergies - Medications Active Medication List: Active Medications Acetaminophen (Tylenol) 650 mg SC PRN PRN PRN Reason: Analgesia Enoxaparin Sodium (Lovenox) 120 mg SUBQ DAILY [facility] Last Admin: 11/28/16 08:48 Dose: 120 mg Furosemide (Lasix Inj 40 Mg Vial) 20 mg IVP DAILY [facility] Last Admin: 11/28/16 08:48 Dose: 20 mg Gabapentin (Neurontin) 100 mg PO BID [facility] Last Admin: 11/28/16 08:48 Dose: 100 mg Guaifenesin/Codeine Phosphate (Robitussin Ac) 5 - 10 ml PO Q4HR PRN PRN Reason: Cough Hydromorphone HCl (Dilaudid Inj) 0.5 mg IVP Q2HR PRN PRN Reason: PAIN Last Admin: 11/28/16 10:54 Dose: 0.5 mg Hydromorphone HCl (Dilaudid) 2 - 4 mg PO Q4HR PRN PRN Reason: PAIN Last Admin: 11/28/16 00:19 Dose: 2 mg Acetaminophen (Ofirmev) 100 mls @ 400 mls/hr IV Q6H [facility] Last Admin: 11/28/16 12:53 Dose: 400 mls/hr Piperacillin Sod/Tazobactam (Sod 3.375 gm/ Sodium Chloride) 100 mls @ 200 mls/ hr IV Q6H [facility] Last Admin: 11/28/16 08:47 Dose: 200 mls/hr Lorazepam (Ativan) 0.5 mg PO Q8H PRN PRN Reason: Anxiety Last Admin: 11/26/16 19:41 Dose: 0.5 mg Memantine (Namenda) 5 mg PO DAILY [facility] Last Admin: 11/28/16 08:48 Dose: 5 mg Ondansetron HCl (Zofran Inj) 4 mg IVP Q4HR PRN PRN Reason: Nausea / Vomiting Last Admin: 11/28/16 08:37 Dose: 4 mg Oxycodone HCl (Roxicodone) 5 mg PO Q6HR PRN PRN Reason: PAIN Last Admin: 11/28/16 10:44 Dose: 5 mg Pantoprazole Sodium (Protonix) 40 mg PO BIDAC [facility] Last Admin: 11/28/16 06:31 Dose: 40 mg Polyethylene Glycol (Miralax) 17 gm PO DAILY [facility] Last Admin: 11/28/16 08:48 Dose: Not Given Prochlorperazine Edisylate (Compazine Inj) 10 mg IVP Q4HR PRN PRN Reason: Nausea / Vomiting Senna (Senokot) 8.6 mg PO DAILY PRN PRN Reason: Constipation Senna (Senokot) 17.2 mg PO DAILY PRN PRN Reason: Constipation Last Admin: 11/27/16 12:10 Dose: 17.2 mg Sodium Chloride (Normal Saline Flush 0.9%) 10 ml IVP PRN PRN PRN Reason: NEEDED PER PROVIDER ORDERS Last Admin: 11/28/16 08:37 Dose: 10 ml Sodium Chloride (Normal Saline Flush 0.9%) 10 ml IVP Q8HR [facility] Last Admin: 11/28/16 10:54 Dose: 10 ml Pantoprazole [Protonix] 40 mg PO BID 02/02/16 Enoxaparin [Lovenox] 120 mg SQ DAILY 03/22/16 HYDROmorphone [Dilaudid] 2 - 4 mg ORAL Q4HR PRN 08/23/16 Gabapentin 100 mg PO BID 09/06/16 guaiFENesin/CODEINE [Robitussin AC] 5 - 10 ml PO Q4HR PRN 11/02/16 Acetaminophen [Tylenol] 650 mg pe PO PRN PRN 11/10/16 Memantine [Namenda] 5 mg PO DAILY 11/16/16 - Allergies Allergies/Adverse Reactions: Allergies Allergy/AdvReac Type Severity Reaction Status Date / Time No Known Drug Allergies Allergy Verified 09/27/16 17:38 Review of Systems - Constitutional Constitutional: reports: Fatigue, Poor appetite - Eyes Eyes: reports: Corrective lenses - Ears, Nose & Throat Ears, Nose & Throat: reports: Postnasal drainage - Cardiovascular Cariovascular: reports: Edema, Exertional dyspnea, Decr. exercise tolerance. denies: Chest pain - Respiratory Respiratory: reports: SOB with exertion. denies: Cough, SOB at rest - Gastrointestinal Gastrointestinal: reports: Abdominal distention, Constipation (now resolved; has moved both am and yesterday), Poor appetite. denies: Rectal bleeding - Genitourinary Genitourinary: reports: Other (scrotal swelling and discomfort). denies: Incontinence - Musculoskeletal Musculoskeletal: reports: Stiffness, Muscle weakness - Integumentary Integumentary: reports: Other (c/o sore coccyx from sitting) - Neurological Neurological: reports: General weakness, Other (Denies any neurological symptoms r/t brain mets) - Psychiatric Psychiatric: reports: Anxiety (new experience for him; mostly because he is "trying to figure it all out") - Endocrine Endocrine: reports: Intolerance to cold - Hematologic/Lymphatic Hematologic/Lymphatic: reports: Anemia (worsening;), Other (white count elevated ; denies fever or chills; pleural fluid sero sanginuos) - All Other Systems All Other Systems: reports: Reviewed and negative Physical Examination - Vital Signs Vital Signs: Vital Signs x48h Temp Pulse Resp BP Pulse Ox 11/28/16 10:00 36.4 C L 90 17 105/68 96 - Physical Exam General Appearance: positive: No acute distress Eyes Bilateral: positive: Normal inspection, Conjunctivae nml. negative: No scleral icterus ENT: positive: No signs of dehydration Neck: positive: Trachea midline Respiratory: positive: Other (right diminished with gurgling; left without breath sounds in bases) Cardiovascular: positive: Tachycardia Abdomen: positive: Abnml bowel sounds (diminished; less taut;) Skin: positive: Pallor Extremities: positive: Pedal edema (edema extending up to thighs/sacrum/scrotal area/and lower abdoment) Neurologic/Psychiatric: positive: Oriented x3, Weakness Palliative Care - POLST Patient has POLST: Yes POLST Status: DNR, Limited Interventions Pain: Pain unchanged, Comment (pain right side controlled) Anorexia: Mild (1-3) Insomnia: Sleeps well Constipation: Yes, Opoid induced, Managed Feelings of wellbeing/Perceived Quality of Life: Worsening (dislikes being in the waiting time) Performance Status: Palliative Care Performance Status [40%].Patient independent prior to hospitalization, limited only be dyspnea. Discussed needing to be up in chair for meals; recommended PT if no objections from team. - Palliative Care Discussion: Patient continues to express anxiety and concern regarding treatment care plan. Is anxious to move forward, and understand what the game plan is. Introduced again, concerns regarding progressive disease, weighing the benefits and burdens regarding future treatment options, and that there are some limitations regarding what is possible. Wondering about new therapies and clinical trials, reviewed need to address and stablize current complications and to explore current plan vs future with oncologist. Patient tentative, asking questions further regarding goals of care. Did initiate conversation regarding some life review. Discussed ways to support self and current situation, will continue to focus on intake, increasing activity, and gathering information as to move towards discharge. Results - Lab Results Lab results reviewed: Yes Fish Bones: 11/28/16 05:00 11/28/16 05:00 Lab and Imaging Results: Lab Results x24hrs 11/28/16 11/28/16 Range/Units 05:00 05:00 WBC 13.5 H (4.8-10.8) x10^3/uL RBC 2.80 L (4.70-6.10) 10^6/uL Hgb 8.2 L (14.0-18.0) g/dL Hct 25.3 L (42.0-52.0) % MCV 90.5 (80.0-94.0) fL MCH 29.1 (27.0-31.0) pg MCHC 32.2 (32.0-36.0) g/dL RDW 20.3 H (12.0-15.0) % Plt Count 223 (130-450) 10^3/uL MPV 7.4 (7.4-11.4) fL Neut # 10.2 H (1.5-6.6) 10^3/uL Lymph # 0.6 L (1.5-3.5) 10^3/uL [place] # 1.4 H (0.0-1.0) 10^3/uL Eos # 1.3 H (0.0-0.7) 10^3/uL Baso # 0.1 (0.0-0.1) 10^3/uL Absolute Nucleated RBC 0.00 x10^3/uL Nucleated RBCs 0.0 /100WBC Manual Slide Review Indicated Platelet Estimate NORMAL (130-450,000) (NORMAL) Platelet Morphology NORMAL APPEARANCE (NORMAL) RBC Morph Micro Appear 1+ SPHEROCYTES (NORMAL) Sodium 135 (135-145) mmol/L Potassium 3.8 (3.5-5.0) mmol/L Chloride 105 (101-111) mmol/L Carbon Dioxide 24 (21-32) mmol/L Anion Gap 6.0 (6-13) BUN 11 (6-20) mg/dL Creatinine 0.6 (0.6-1.2) mg/dL Estimated GFR (MDRD) 134 (>89) Glucose 86 (70-100) mg/dL Calcium 7.7 L (8.5-10.3) mg/dL Total Bilirubin 1.0 (0.2-1.0) mg/dL AST 51 H (10-42) IU/L ALT 38 (10-60) IU/L Alkaline Phosphatase 885 H (42-121) IU/L Total Protein 4.7 L (6.7-8.2) g/dL Albumin 1.9 L (3.2-5.5) g/dL Globulin 2.8 (2.1-4.2) g/dL Albumin/Globulin Ratio 0.7 L (1.0-2.2) Impression and Recommendations - Palliative Care Impression: This is a 66-year-old gentleman with 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 Awaiting resolution of right pleural effusion, is moving towards discharge. Continue to provide counseling and support regarding goals of care, addressing questions and concerns, and providing anticipatory guidance. Recommendations/Counseling Done: 1. 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 Patient with current treatments both radiation and chemotherapy on hold, as addressing acute pleural effusion. Patient continues to hope for the best, and anxious to have "a game plan". Dr. Mijares to followup tomorrow, hopefully will help patient with exploration of current options. Patient's anxiety, is exacerbated with the unknown. 2. Generalized weakness. In preparation for transition home, recommended if no contraindications, a physical therapy for strengthening and support. 3. Acute on chronic pain. Currently managed patient's satisfaction. 4. Constipation. Currently managed with current regimen the patient's satisfaction, with bowel movement both today and yesterday. 5. Anxiety. This is multifactorial in origin. Patient with increasing tumor burden, worried about the future, and having a plan in place. Supportive listening and anticipatory guidance provided. 6. Coccyx discomfort. Inst. on offloading and need to change positions. Will have RN follow up with dressing needed. Time Spent: 45 minutes with greater than 50% of this done in counseling regarding goals of care, education regarding cancer and cancer treatments, and anticipatory guidance. Coordination of care with hospitalist/clinical staff.
--- NOTE | 2016-11-28 23:54 | PROVIDER PROGRESS NOTE ---
Subjective - General Admit Date: 11/21/16 Procedure Date: 11/21/16 Post Op Days: 7 Procedure Performed: Tube thoracostomy x2 right chest with drainage of 2600 mL of malignant pleu - Review of Systems Wound/Incisions: positive: Healing well (Posterior chest tube removed and patient tolerated it well.) Drain Type: 28 Fr straight chest tube and 32 Fr right angled chest tube Drain Output Description: serosanguinous Approximate mls Output: Anterior chest fbli=981 mL General: positive: Fatigue (Mild.) HEENT: positive: No symptoms Pulmonary: positive: Pleuritic chest pain (Improved.). negative: Shortness of breath Cardiovascular: positive: No symptoms Gastrointestinal: positive: Other (mild persistent abdominal discomfort and bloating). negative: Nausea, Vomiting Musculoskeletal: positive: No symptoms Skin: positive: Pallor Psychiatric: positive: Depression, Anxiety All Other Systems: positive: Reviewed and negative Objective - Patient Data Reviewed Vital Signs: Yes Vital Signs: Vital Signs x48h Temp Pulse Resp BP Pulse Ox 11/28/16 16:03 36.4 C L 83 24 108/65 99 Intake & Output: Intake and Output Totals x24h 11/26/16 11/27/16 11/28/16 23:59 23:59 23:59 Intake Total 1872 1864 1650 Output Total 1850 2075 990 Balance 22 -211 660 - Lab Results Lab Results: 11/28/16 05:00 11/28/16 05:00 Other Lab Results: Lab Results x24hrs 11/28/16 11/28/16 Range/Units 05:00 05:00 WBC 13.5 H (4.8-10.8) x10^3/uL RBC 2.80 L (4.70-6.10) 10^6/uL Hgb 8.2 L (14.0-18.0) g/dL Hct 25.3 L (42.0-52.0) % MCV 90.5 (80.0-94.0) fL MCH 29.1 (27.0-31.0) pg MCHC 32.2 (32.0-36.0) g/dL RDW 20.3 H (12.0-15.0) % Plt Count 223 (130-450) 10^3/uL MPV 7.4 (7.4-11.4) fL Neut # 10.2 H (1.5-6.6) 10^3/uL Lymph # 0.6 L (1.5-3.5) 10^3/uL [place] # 1.4 H (0.0-1.0) 10^3/uL Eos # 1.3 H (0.0-0.7) 10^3/uL Baso # 0.1 (0.0-0.1) 10^3/uL Absolute Nucleated RBC 0.00 x10^3/uL Nucleated RBCs 0.0 /100WBC Manual Slide Review Indicated Platelet Estimate NORMAL (130-450,000) (NORMAL) Platelet Morphology NORMAL APPEARANCE (NORMAL) RBC Morph Micro Appear 1+ SPHEROCYTES (NORMAL) Sodium 135 (135-145) mmol/L Potassium 3.8 (3.5-5.0) mmol/L Chloride 105 (101-111) mmol/L Carbon Dioxide 24 (21-32) mmol/L Anion Gap 6.0 (6-13) BUN 11 (6-20) mg/dL Creatinine 0.6 (0.6-1.2) mg/dL Estimated GFR (MDRD) 134 (>89) Glucose 86 (70-100) mg/dL Calcium 7.7 L (8.5-10.3) mg/dL Total Bilirubin 1.0 (0.2-1.0) mg/dL AST 51 H (10-42) IU/L ALT 38 (10-60) IU/L Alkaline Phosphatase 885 H (42-121) IU/L Total Protein 4.7 L (6.7-8.2) g/dL Albumin 1.9 L (3.2-5.5) g/dL Globulin 2.8 (2.1-4.2) g/dL Albumin/Globulin Ratio 0.7 L (1.0-2.2) - Current Medications Current Medications: Current Medications Generic Name Dose Route Start Last Admin Trade Name Lorenzo PRN Reason Stop Dose Admin Enoxaparin Sodium 120 mg 11/23/16 09:00 11/28/16 08:48 Lovenox SUBQ 120 mg DAILY [facility] Administration Furosemide 20 mg 11/28/16 09:00 11/28/16 08:48 Lasix Inj 40 Mg Vial IVP 20 mg DAILY [facility] Administration Gabapentin 100 mg 11/22/16 21:00 11/28/16 20:58 Neurontin PO 100 mg BID [facility] Administration Hydromorphone HCl 0.5 mg 11/21/16 11:35 11/28/16 10:54 Dilaudid Inj IVP 0.5 mg Q2HR PRN Administration PAIN Hydromorphone HCl 2 - 4 mg 11/22/16 18:46 11/28/16 21:12 Dilaudid PO 2 mg Q4HR PRN Administration PAIN Acetaminophen 100 mls @ 400 mls/hr 11/21/16 12:00 11/28/16 17:46 Ofirmev IV 400 mls/hr Q6H [facility] Administration Piperacillin Sod/Tazobactam 100 mls @ 200 mls/hr 11/23/16 02:00 11/28/16 20:09 Sod 3.375 gm/ Sodium Chloride IV 200 mls/hr Q6H [facility] Administration Lorazepam 0.5 mg 11/23/16 22:21 11/26/16 19:41 Ativan PO 0.5 mg Q8H PRN Administration Anxiety Memantine 5 mg 11/23/16 09:00 11/28/16 08:48 Namenda PO 5 mg DAILY [facility] Administration Ondansetron HCl 4 mg 11/23/16 17:02 11/28/16 08:37 Zofran Inj IVP 4 mg Q4HR PRN Administration Nausea / Vomiting Oxycodone HCl 5 mg 11/21/16 19:25 11/28/16 17:54 Roxicodone PO 5 mg Q6HR PRN Administration PAIN Pantoprazole Sodium 40 mg 11/24/16 18:00 11/28/16 15:56 Protonix PO 40 mg BIDAC [facility] Administration Polyethylene Glycol 17 gm 11/22/16 09:00 11/28/16 08:48 Miralax PO Not Given DAILY [facility] Senna 17.2 mg 11/27/16 12:15 11/27/16 12:10 Senokot PO 17.2 mg DAILY PRN Administration Constipation Sodium Chloride 10 ml 11/21/16 11:35 11/28/16 08:37 Normal Saline Flush 0.9% IVP 10 ml PRN PRN Administration NEEDED PER PROVIDER ORDERS Sodium Chloride 10 ml 11/21/16 14:00 11/28/16 20:58 Normal Saline Flush 0.9% IVP 10 ml Q8HR [facility] Administration - Physical Exam Wound/Incisions: positive: Healing well General Appearance: positive: No acute distress Eyes Bilateral: positive: No lid inflammation, Conjunctivae nml, No scleral icterus Neck: positive: Trachea midline Respiratory: positive: Chest non-tender, No respiratory distress, Other ( Decreased on LEFT. Rub on RIGHT.) Cardiovascular: positive: Regular rate & rhythm Abdomen: positive: Non-tender Skin: positive: Pallor Extremities: positive: Non-tender Neurologic/Psychiatric: positive: Oriented x3 Impression/Plan - Problem List Problem List: The hemopneuthorax is slightly worse on the right following chest tube removal ( posterior). Will watch to see if worsens. The left side is definitely worse and have discussed plan with patient - plan is LEFT tube thoracostomy tomorrow with pleurodesis. Expect more malignant pleural effusion. Reason for surgery is palliation and patient comfort. Verbal and written consent obtained. Do NOT have an operative time yet and patient is aware.
[2016-11-29] MEDS: ACETAMINOPHEN 1,000 MG/100 ML 100 ML IV SCH ×4 (00:01→17:50)
[2016-11-29] MEDS: oxyCODONE 5 MG TABLET PO PRN ×3 (01:30→16:34)
[2016-11-29] MEDS: PIPERACILLIN/TAZOBACTAM 3.375 GM in SODIUM CHLORIDE 0.9% MINIBAG 100 ML IV SCH ×4 (01:30→20:42)
[2016-11-29 05:45] LABS: BASOPHILS # (AUTO) 0.1 10^3/uL (0.0-0.1); BASOPHILS % (AUTO) 0.6 %; EOSINOPHILS # (AUTO) 1.5 10^3/uL (0.0-0.7); EOSINOPHILS % (AUTO) 11.4 %; HCT - HEMATOCRIT 25.1 % (42.0-52.0); HGB - HEMOGLOBIN 8.1 g/dL (14.0-18.0); LYMPHOCYTES # (AUTO) 0.5 10^3/uL (1.5-3.5); LYMPHOCYTES % (AUTO) 3.6 %; MEAN CORPUSCULAR HEMOGLOBIN 29.1 pg (27.0-31.0); MEAN CORPUSCULAR HGB CONC 32.2 g/dL (32.0-36.0); MEAN CORPUSCULAR VOLUME 90.6 fL (80.0-94.0); MEAN PLATELET VOLUME 7.1 fL (7.4-11.4); MONOCYTES # (AUTO) 1.2 10^3/uL (0.0-1.0); MONOCYTES % (AUTO) 8.9 %; NEUTROPHILS # (AUTO) 10.2 10^3/uL (1.5-6.6); NEUTROPHILS % (AUTO) 75.5 %; RED BLOOD COUNT 2.78 10^6/uL (4.70-6.10); RED CELL DISTRIBUTION WIDTH 20.4 % (12.0-15.0); UNCORRECTED WHITE BLOOD COUNT 13.5 x10^3/uL; WHITE BLOOD COUNT 13.5 x10^3/uL (4.8-10.8)
[2016-11-29] MEDS: PANTOPRAZOLE 40 MG TABLET PO SCH ×2 (06:01→16:41)
[2016-11-29] MEDS: SODIUM CHLORIDE FLUSH 0.9% 10 ML SYRINGE IVP SCH ×4 (06:01→23:56)
--- NOTE | 2016-11-29 07:23 | PROVIDER PROGRESS NOTE ---
Subjective - Prog Note Date Prog Note Date: 11/29/16 Prog Note Time: 07:19 - Subjective Pt reports feeling: No change Subjective: Patient is still hopeful for chemotherapy. He still has shortness of breath with exertion. aware he will need another chest tube to the left side. affect slightly flat and feeling a little down regarding outcome of illness at this point. He denies other symptoms. Current Medications - Current Medications Current Medications: Active Medications Generic Name Dose Route Start Last Admin Trade Name Freq PRN Reason Stop Dose Admin Acetaminophen 650 mg 11/22/16 18:46 Tylenol NC PRN PRN Analgesia Enoxaparin Sodium 120 mg 11/23/16 09:00 11/29/16 07:39 Lovenox SUBQ Not Given DAILY [facility] Furosemide 20 mg 11/28/16 09:00 11/29/16 09:03 Lasix Inj 40 Mg Vial IVP 20 mg DAILY [facility] Administration Gabapentin 100 mg 11/22/16 21:00 11/29/16 09:03 Neurontin PO 100 mg BID [facility] Administration Guaifenesin/Codeine Phosphate 5 - 10 ml 11/22/16 18:46 Robitussin Ac PO Q4HR PRN Cough Hydromorphone HCl 0.5 mg 11/21/16 11:35 11/29/16 09:00 Dilaudid Inj IVP 0.5 mg Q2HR PRN Administration PAIN Hydromorphone HCl 2 - 4 mg 11/22/16 18:46 11/28/16 21:12 Dilaudid PO 2 mg Q4HR PRN Administration PAIN Acetaminophen 100 mls @ 400 mls/hr 11/21/16 12:00 11/29/16 11:34 Ofirmev IV 400 mls/hr Q6H [facility] Administration Piperacillin Sod/Tazobactam 100 mls @ 200 mls/hr 11/23/16 02:00 11/29/16 09:11 Sod 3.375 gm/ Sodium Chloride IV 200 mls/hr Q6H [facility] Administration Lorazepam 0.5 mg 11/23/16 22:21 11/26/16 19:41 Ativan PO 0.5 mg Q8H PRN Administration Anxiety Memantine 5 mg 11/23/16 09:00 11/29/16 09:03 Namenda PO 5 mg DAILY [facility] Administration Ondansetron HCl 4 mg 11/23/16 17:02 11/28/16 08:37 Zofran Inj IVP 4 mg Q4HR PRN Administration Nausea / Vomiting Oxycodone HCl 5 mg 11/21/16 19:25 11/29/16 10:28 Roxicodone PO 5 mg Q6HR PRN Administration PAIN Pantoprazole Sodium 40 mg 11/24/16 18:00 11/29/16 06:01 Protonix PO 40 mg BIDAC [facility] Administration Polyethylene Glycol 17 gm 11/22/16 09:00 11/29/16 09:01 Miralax PO Not Given DAILY [facility] Prochlorperazine Edisylate 10 mg 11/23/16 17:03 Compazine Inj IVP Q4HR PRN Nausea / Vomiting Senna 8.6 mg 11/27/16 12:01 Senokot PO DAILY PRN Constipation Senna 17.2 mg 11/27/16 12:15 11/27/16 12:10 Senokot PO 17.2 mg DAILY PRN Administration Constipation Sodium Chloride 10 ml 11/21/16 11:35 11/29/16 09:12 Normal Saline Flush 0.9% IVP 10 ml PRN PRN Administration NEEDED PER PROVIDER ORDERS Sodium Chloride 10 ml 11/21/16 14:00 11/29/16 06:01 Normal Saline Flush 0.9% IVP 10 ml Q8HR [facility] Administration Pantoprazole [Protonix] 40 mg PO BID 02/02/16 Enoxaparin [Lovenox] 120 mg SQ DAILY 03/22/16 HYDROmorphone [Dilaudid] 2 - 4 mg ORAL Q4HR PRN 08/23/16 Gabapentin 100 mg PO BID 09/06/16 guaiFENesin/CODEINE [Robitussin AC] 5 - 10 ml PO Q4HR PRN 11/02/16 Acetaminophen [Tylenol] 650 mg pe PO PRN PRN 11/10/16 Memantine [Namenda] 5 mg PO DAILY 11/16/16 Objective - Vital Signs/Intake & Output Reviewed Vital Signs: Yes Vital Signs: Vital Signs x48h Temp Pulse Resp BP Pulse Ox 11/29/16 00:05 36.6 C 78 16 106/68 93 Intake & Output: Intake & Output 09/17/17 09/18/17 09/19/17 09/20/17 23:59 23:59 23:59 23:59 Intake Total 1872 1861 1650 Output Total 0651 990 620 Balance 22 - 660 -620 - Objective General Appearance: positive: No acute distress, Alert Eyes Bilateral: positive: Normal inspection, PERRL ENT: positive: ENT inspection nml, Pharynx nml, No signs of dehydration Neck: positive: Nml inspection, Thyroid nml, No JVD Respiratory: positive: Chest non-tender, No respiratory distress, Other ( diminished in the right lower lobe more than right and with some course sounds) Cardiovascular: positive: No murmur, No gallop Abdomen: positive: Non-tender, No organomegaly, No distention. negative: Guarding, Rebound Back: positive: Nml inspection (chest tube noted to right side with ouput) Skin: positive: Color nml, No rash, Warm, Dry Extremities: positive: Full ROM, Pedal edema (edema to upper leg bilaterally) Neurologic/Psychiatric: positive: Oriented x3, CN's nml (2-12), Motor nml, Sensation nml, Weakness, Depressed mood/affect - Lab Results Fish Bones: 11/29/16 05:25 11/28/16 05:00 Other Labs: Lab Results x24hrs 11/29/16 Range/Units 05:25 WBC 13.5 H (4.8-10.8) x10^3/uL RBC 2.78 L (4.70-6.10) 10^6/uL Hgb 8.1 L (14.0-18.0) g/dL Hct 25.1 L (42.0-52.0) % MCV 90.6 (80.0-94.0) fL MCH 29.1 (27.0-31.0) pg MCHC 32.2 (32.0-36.0) g/dL RDW 20.4 H (12.0-15.0) % Plt Count 230 (130-450) 10^3/uL MPV 7.1 L (7.4-11.4) fL Neut # 10.2 H (1.5-6.6) 10^3/uL Lymph # 0.5 L (1.5-3.5) 10^3/uL [place] # 1.2 H (0.0-1.0) 10^3/uL Eos # 1.5 H (0.0-0.7) 10^3/uL Baso # 0.1 (0.0-0.1) 10^3/uL Absolute Nucleated RBC 0.00 x10^3/uL Nucleated RBCs 0.0 /100WBC - Diagnostic Imaging Diagnostic Imaging Results: positive: Final report reviewed Diagnostic Imaging Comments: The hemopneuthorax is slightly worse on the right following chest tube removal ( posterior). - Other Results/Comments Other Results/Comments: Assessment/Plan - Problem List (1) Malignant pleural effusion Impression: acute with chest tube placement. patient is still seeking to have chemotherapy and is hopeful to improve. pallative care has been addressed. patient not wanting hospice at this time. continue with planned interventions and with surgery as primary and plan to get patient home as soon as possible. (2) Complication of chest tube Impression: acute and ongoing. patient has one tube at this time and putting out fluid with no leak. worsening effusion now with effusion to left side and pending chest tube placement to left side. will continue to monitor effusion and size bilaterally. Qualifiers: Encounter type: initial encounter Qualified Code(s): T85.9XXA - Unspecified complication of internal prosthetic device, implant and graft, initial encounter (3) Hyponatremia Impression: acute and resolved. 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 continue to monitor daily labs and with surgery as primary. patient still wanting chemotherapy and Dr Mijares has been notified with assistance to facilitate pallative interventions from Alis Jameson Time spent with patient was 40 minutes for planning and assessment Assessment/Plan - Problem List (2) Complication of chest tube Qualifiers: Encounter type: initial encounter Qualified Code(s): T85.9XXA - Unspecified complication of internal prosthetic device, implant and graft, initial encounter
[2016-11-29] MEDS: ENOXAPARIN 120 MG/0.8 ML SYRINGE SUBQ SCH (07:39)
[2016-11-29] MEDS: HYDROmorphone 1 MG/ML CARPUJECT IVP PRN ×6 (09:00→23:56)
[2016-11-29] MEDS: POLYETHYLENE GLYCOL 3350 17 GM PACKET PO SCH (09:01)
[2016-11-29] MEDS: MEMANTINE 5 MG TABLET PO SCH (09:03)
[2016-11-29] MEDS: GABAPENTIN 100 MG CAPSULE PO SCH ×2 (09:03→20:42)
[2016-11-29] MEDS: FUROSEMIDE 40 MG/4 ML VIAL IVP SCH (09:03)
[2016-11-29] MEDS: SODIUM CHLORIDE FLUSH 0.9% 10 ML SYRINGE IVP PRN ×3 (09:12→21:34)
[2016-11-29] MEDS ORDERED: KETAMINE 500 MG/10 ML VIAL IVP ONE (19:20)
[2016-11-29] MEDS ORDERED: MIDAZOLAM 2 MG/2 ML VIAL IVP ONE (19:20)
--- NOTE | 2016-11-29 20:11 | OPERATIVE REPORT ---
Operative Report - General Admit Date: 11/21/16 Planned Procedure: LEFT tube thoracostomy Pre-Op Diagnosis: LEFT pleural effution Procedure Performed: LEFT tube thoracostomy (28 Fr straight chest tube) Post Op Diagnosis: Same - Procedure Note Primary Surgeon: Lion Ayoub Anesthesia Provider: Ubaldo Mello Anesthesia Technique: Local (17 mL 1/2% marcaine), Moderate sedation IV Fluids (mL): 250 Estimated Blood Loss (mL): 5 Drain/Tube Type: Other (28 Fr straight chest tube) Complications: None. - Other Other Information/Narrative: OPERATIVE DESCRIPTION/REPORT: After verbal and written informed consent was obtained detailing the risks of infection, bleeding with all of its risks including transfusion, and the patient was kept in his bed in Room 2207 and the procedure was performed in his room with the aid of the anthropology and archeology instructor (Ubaldo Mello) and the OR nurses. Monitoring devices were applied along with TEDs and pneumatic compressive stockings. Care was taken to avoid pressure points. Prophylactic antibiotics were given. An adequate level of moderate sedation was established by Ubaldo Mello. The RIGHT chest was then prepped with ChloraPrep and draped in a sterile fashion. A "time in" then confirmed that the patient was identified with 3 identifiers (name, date and medical record number), the history and physical was in the chart, the signed consent confirming the procedure was in the chart, the patient was in the correct position, the aforementioned prophylactic measures were in place or given, we had the correct personnel and equipment to complete the procedure and that anesthesia, surgery and nursing were given an opportunity to express any concerns. After anesthetizing the skin and subcutaneous tissues with 1/2% marcaine with epinephrine, the initial incision was at the mid-axillary line at the 7th interspace. Blunt dissection between the ribs was accomplished with a peon. Through the thoracotomy hole was placed a straight 28 Fr chest tube under direct vision with the aid of a peon and directed somewhat medially as the pleural effusion was more at the base. This was secured at the skin level with a 2-0 silk suture that was Derek-sandaled about the drain (measurement 14 cm). With the placement of the chest tube there was immediate drainage of 1100 mL of yellow fluid with minimal blood. I think the blood was more related to the procedure rather than anything that was going on in his chest. The chest tube was secured to a Pleurevac and placed on water seal and then 20 cm of water suction. On waterseal the chest tube showed good respiratory variation. On suction the chest tube showed no air leak. The surgical count of instruments, needles and sponges was reported as correct twice. Sterile surgical dressings were applied. The patient was then allowed to recover from the moderate sedation, and having tolerated the procedure well, had a stat portable chest x-ray obtained to confirm placement.. No complications were encountered. A "time out" confirmed the operation performed, the fluids given, the estimated blood loss and anesthesia, surgery and nursing were given an opportunity to express any concerns. The chest x-ray was personally reviewed by me and I reviewed the reading by Dr. Thomas which showed good placement of the tube.
[2016-11-29] MEDS: HYDROmorphone 2 MG TABLET PO PRN (20:42)
[2016-11-29] MEDS ORDERED: TALC IX ONE (20:45)
--- NOTE | 2016-11-29 21:09 | XRAY Preliminary Report ---
Exam: XR Chest 1 View IMPRESSION: Bibasilar chest tubes, new on the left. Small right pleural effusion appears mildly incre ased, appears to fill the space of the previously seen right base pneumothorax. No definite pneumotho rax is seen. Lower lung volumes. [id number]-[id number] diffuse bilateral airspace disease, increased from the prior, could represent increased pulmonary edema versus atelectasis. Pneumonia not excluded. Band like opacity right mid and lower lung again noted. Otherwise, as above. [facility] SITE ID: [id number]
--- NOTE | 2016-11-29 21:12 | XRAY Report ---
EXAM: CHEST RADIOGRAPHY EXAM DATE: 11/29/2016 08:28 PM. CLINICAL HISTORY: S/p LEFT tube thoracostomy. COMPARISON: Chest 11/28/2016. TECHNIQUE: 1 view. FINDINGS: Bibasilar chest tubes, new on the left. Small right pleural effusion appears mildly increas ed, appears to fill the space of the previously seen right base pneumothorax. No definite pneumothora x is seen. Lower lung volumes. Bkrj-gh-czcloscr diffuse bilateral airspace disease, increased from th e prior, could represent increased pulmonary edema versus atelectasis. Pneumonia not excluded. Bandli ke opacity right mid and lower lung again noted. Mediastinum appears stable. Left port a catheter central line appears unchanged. Gas distended bowel in the left upper quadrant, increased from the prior, suspect this is colon IMPRESSION: Bibasilar chest tubes, new on the left. Small right pleural effusion appears mildly incre ased, appears to fill the space of the previously seen right base pneumothorax. No definite pneumotho rax is seen. Lower lung volumes. Uarg-ya-ohfjphzj diffuse bilateral airspace disease, increased from the prior, could represent increased pulmonary edema versus atelectasis. Pneumonia not excluded. Band like opacity right mid and lower lung again noted. Otherwise, as above. DANIKA Referring Provider Line: [phone] SITE ID: [id number]
[2016-11-30] MEDS: HYDROmorphone 2 MG TABLET PO PRN ×4 (00:07→15:46)
[2016-11-30] MEDS: ONDANSETRON 4 MG/2 ML VIAL IVP PRN ×2 (00:08→09:10)
[2016-11-30] MEDS: ACETAMINOPHEN 1,000 MG/100 ML 100 ML IV SCH ×4 (00:21→19:16)
[2016-11-30] MEDS: HYDROmorphone 1 MG/ML CARPUJECT IVP PRN ×7 (00:58→11:56)
[2016-11-30] MEDS: PIPERACILLIN/TAZOBACTAM 3.375 GM in SODIUM CHLORIDE 0.9% MINIBAG 100 ML IV SCH ×5 (02:37→21:08)
[2016-11-30] MEDS: SODIUM CHLORIDE FLUSH 0.9% 10 ML SYRINGE IVP SCH ×2 (05:31→20:41)
[2016-11-30] MEDS: PANTOPRAZOLE 40 MG TABLET PO SCH ×2 (06:46→15:46)
[2016-11-30] MEDS: POLYETHYLENE GLYCOL 3350 17 GM PACKET PO SCH (09:11)
[2016-11-30] MEDS: ENOXAPARIN 120 MG/0.8 ML SYRINGE SUBQ SCH (09:41)
[2016-11-30] MEDS: FUROSEMIDE 40 MG/4 ML VIAL IVP SCH (09:41)
[2016-11-30] MEDS: GABAPENTIN 100 MG CAPSULE PO SCH ×2 (09:42→20:40)
[2016-11-30] MEDS: HYDROmorphone 1 MG/ML CARPUJECT IVP ONE ×2 (09:45→10:01)
[2016-11-30] MEDS ORDERED: HYDROmorphone 1 MG/ML CARPUJECT IVP SCH (10:00)
--- NOTE | 2016-11-30 10:13 | PROVIDER PROGRESS NOTE ---
Subjective - Prog Note Date Prog Note Date: 11/30/16 Prog Note Time: 10:09 - Subjective Pt reports feeling: No change, Worse Subjective: Patient evaluated at bedside. Patient is requesting a consult with Dr Mijares regarding continuation of his chemotherapy for the worsening metastasis. Dr Mijares met with patient yesterday and will be seen in the MAC clinic on the and have treatment on the . he is hopeful for a positive outcome. he is having some worsening shortness of breath today. receiving lasix IV. continuing with medications for anxiety as well. He has no nausea or vomiting. mild chest discomfort and more anxiety due to shortness of breath Current Medications - Current Medications Current Medications: Active Medications Generic Name Dose Route Start Last Admin Trade Name Freq PRN Reason Stop Dose Admin Acetaminophen 650 mg 11/22/16 18:46 Tylenol IA PRN PRN Analgesia Enoxaparin Sodium 120 mg 11/23/16 09:00 11/30/16 09:41 Lovenox SUBQ 120 mg DAILY MARYBETH Administration Furosemide 20 mg 11/28/16 09:00 11/30/16 09:41 Lasix Inj 40 Mg Vial IVP 20 mg DAILY MARYBETH Administration Gabapentin 100 mg 11/22/16 21:00 11/30/16 09:42 Neurontin PO 100 mg BID MARYBETH Administration Guaifenesin/Codeine Phosphate 5 - 10 ml 11/22/16 18:46 Robitussin Ac PO Q4HR PRN Cough Hydromorphone HCl 2 - 4 mg 11/22/16 18:46 11/30/16 09:41 Dilaudid PO 2 mg Q4HR PRN Administration PAIN Hydromorphone HCl 0.5 mg 11/29/16 20:37 11/30/16 06:46 Dilaudid Inj IVP 0.5 mg Q30M PRN Administration PAIN Acetaminophen 100 mls @ 400 mls/hr 11/21/16 12:00 11/30/16 06:11 Ofirmev IV 400 mls/hr Q6H MARYBETH Administration Piperacillin Sod/Tazobactam 100 mls @ 200 mls/hr 11/23/16 02:00 11/30/16 09:41 Sod 3.375 gm/ Sodium Chloride IV 200 mls/hr Q6H MARYBETH Administration Lorazepam 0.5 mg 11/23/16 22:21 11/26/16 19:41 Ativan PO 0.5 mg Q8H PRN Administration Anxiety Memantine 5 mg 11/23/16 09:00 11/30/16 10:14 Namenda PO 5 mg DAILY MARYBETH Administration Ondansetron HCl 4 mg 11/23/16 17:02 11/30/16 09:10 Zofran Inj IVP 4 mg Q4HR PRN Administration Nausea / Vomiting Oxycodone HCl 5 mg 11/21/16 19:25 11/29/16 16:34 Roxicodone PO 5 mg Q6HR PRN Administration PAIN Pantoprazole Sodium 40 mg 11/24/16 18:00 11/30/16 06:46 Protonix PO 40 mg BIDAC MARYBETH Administration Polyethylene Glycol 17 gm 11/22/16 09:00 11/30/16 09:11 Miralax PO Not Given DAILY MARYBETH Prochlorperazine Edisylate 10 mg 11/23/16 17:03 Compazine Inj IVP Q4HR PRN Nausea / Vomiting Senna 8.6 mg 11/27/16 12:01 Senokot PO DAILY PRN Constipation Senna 17.2 mg 11/27/16 12:15 11/27/16 12:10 Senokot PO 17.2 mg DAILY PRN Administration Constipation Sodium Chloride 10 ml 11/21/16 11:35 11/29/16 21:34 Normal Saline Flush 0.9% IVP 10 ml PRN PRN Administration NEEDED PER PROVIDER ORDERS Sodium Chloride 10 ml 11/21/16 14:00 11/30/16 05:31 Normal Saline Flush 0.9% IVP 10 ml Q8HR MARYBETH Administration Pantoprazole [Protonix] 40 mg PO BID 02/02/16 Enoxaparin [Lovenox] 120 mg SQ DAILY 03/22/16 HYDROmorphone [Dilaudid] 2 - 4 mg ORAL Q4HR PRN 08/23/16 Gabapentin 100 mg PO BID 09/06/16 guaiFENesin/CODEINE [Robitussin AC] 5 - 10 ml PO Q4HR PRN 11/02/16 Acetaminophen [Tylenol] 650 mg pe PO PRN PRN 11/10/16 Memantine [Namenda] 5 mg PO DAILY 11/16/16 Objective - Vital Signs/Intake & Output Reviewed Vital Signs: Yes Vital Signs: Vital Signs x48h Temp Pulse Resp BP Pulse Ox 11/30/16 08:46 36.4 C L 112 H 18 113/81 H 94 Intake & Output: Intake & Output 11/27/16 11/28/16 11/29/16 11/30/16 23:59 23:59 23:59 23:59 Intake Total 1864 1650 2506 445 Output Total 2075 990 2238 500 Balance -211 660 268 -55 - Objective General Appearance: positive: Alert, Mild distress Eyes Bilateral: positive: Normal inspection, PERRL ENT: positive: ENT inspection nml, Pharynx nml, No signs of dehydration, Other ( patient has some fluid bilateral ears) Neck: positive: Nml inspection, Thyroid nml, No JVD, Trachea midline Respiratory: positive: Rhonchi, Other (diminished breath sounds bilaterally with rhonchi) Cardiovascular: positive: No murmur, No gallop. negative: JVD present Abdomen: positive: Non-tender, No organomegaly, No distention. negative: Guarding, Rebound Skin: positive: Color nml, No rash, Warm, Dry Extremities: positive: Full ROM, Pedal edema, Other (lower extremity edema bilaterally) Neurologic/Psychiatric: positive: Oriented x3, CN's nml (2-12), Motor nml, Sensation nml, Mood/affect nml - Lab Results Fish Bones: 11/29/16 05:25 11/28/16 05:00 - Diagnostic Imaging Diagnostic Imaging Results: positive: Final report reviewed - Other Results/Comments Other Results/Comments: Problem List (1) Malignant pleural effusion Impression: continue with lasix IV and was increased to 40mg daily. chest tube placement x 2. patient is still seeking to have chemotherapy and is hopeful to improve. pallative care has been addressed. patient not wanting hospice at this time. continue with planned interventions and with surgery as primary and plan to get patient home as soon as possible. Dr Mijares was contacted regarding patient status and continuation with chemotherapy. He will be able to get into the MAC on the and treatment on the . (2) Complication of chest tube Impression: acute and ongoing. patient has one tube on the right side and one on the left at this time and putting out fluid with no leak. worsening effusion now with effusion to left side and on right side as well. will continue to monitor effusion and size bilaterally with repeat xray of chest. Qualifiers: Encounter type: initial encounter Qualified Code(s): T85.9XXA - Unspecified complication of internal prosthetic device, implant and graft, initial encounter (3) Hyponatremia Impression: acute and resolved. 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 continue to monitor daily labs and with surgery as primary. patient still wanting chemotherapy and Dr Mijares has been notified and reviewed the records and assistance to facilitate pallative interventions from Alis Jameson Time spent with patient was 40 minutes for planning and assessment Assessment/Plan - Problem List (2) Complication of chest tube Qualifiers: Encounter type: initial encounter Qualified Code(s): T85.9XXA - Unspecified complication of internal prosthetic device, implant and graft, initial encounter
[2016-11-30] MEDS: MEMANTINE 5 MG TABLET PO SCH (10:14)
[2016-11-30] MEDS ORDERED: FUROSEMIDE 40 MG/4 ML VIAL IVP ONE (10:23)
[2016-11-30] MEDS: LORazepam 0.5 MG TABLET PO PRN ×3 (12:39→21:30)
[2016-11-30 16:34] LABS: ABG ANALYSIS TIME 1634
[2016-11-30 16:35] LABS: ABG BASE EXCESS -5.1 mmol/L (-2.0-3.0); ABG OXYGEN SATURATION 94 % (94-98); ABG PCO2 37 mmHg (34-45); ABG PH 7.35 (7.35-7.45); ABG PO2 73 mmHg (80-100); ABG ROOM AIR YES; ABG SITE OF DRAW RIGHT RADIAL; ABG TCO2 21.1 MMOL/L (21.0-29.0); ALLEN TEST POSITIVE
[2016-11-30 16:55] LABS: BASOPHILS # (AUTO) 0.1 10^3/uL (0.0-0.1); BASOPHILS % (AUTO) 0.4 %; EOSINOPHILS # (AUTO) 0.3 10^3/uL (0.0-0.7); EOSINOPHILS % (AUTO) 0.9 %; HCT - HEMATOCRIT 32.2 % (42.0-52.0); HGB - HEMOGLOBIN 10.1 g/dL (14.0-18.0); LYMPHOCYTES # (AUTO) 0.4 10^3/uL (1.5-3.5); LYMPHOCYTES % (AUTO) 1.5 %; MEAN CORPUSCULAR HEMOGLOBIN 28.6 pg (27.0-31.0); MEAN CORPUSCULAR HGB CONC 31.3 g/dL (32.0-36.0); MEAN CORPUSCULAR VOLUME 91.5 fL (80.0-94.0); MEAN PLATELET VOLUME 7.2 fL (7.4-11.4); MONOCYTES # (AUTO) 1.8 10^3/uL (0.0-1.0); MONOCYTES % (AUTO) 6.1 %; NEUTROPHILS # (AUTO) 26.9 10^3/uL (1.5-6.6); NEUTROPHILS % (AUTO) 91.1 %; RED BLOOD COUNT 3.52 10^6/uL (4.70-6.10); RED CELL DISTRIBUTION WIDTH 20.5 % (12.0-15.0); UNCORRECTED WHITE BLOOD COUNT 29.5 x10^3/uL; WHITE BLOOD COUNT 29.5 x10^3/uL (4.8-10.8)
[2016-11-30 17:00] LABS: ALBUMIN/GLOBULIN RATIO 0.6 (1.0-2.2); BILIRUBIN,TOTAL 0.9 mg/dL (0.2-1.0); CALCIUM 8.2 mg/dL (8.5-10.3); CREATININE 1.2 mg/dL (0.6-1.2); POTASSIUM 4.4 mmol/L (3.5-5.0); TOTAL PROTEIN 5.9 g/dL (6.7-8.2)
[2016-11-30] MEDS: MORPHINE 2 MG/ML SYRINGE IVP PRN ×3 (17:08→20:41)
[2016-11-30 17:12] LABS: PLATELET ESTIMATE, MANUAL NORMAL (130-450,000) (NORMAL); PLATELET MORPHOLOGY 1+ LARGE PLATELETS (NORMAL)
[2016-11-30] MEDS ORDERED: IOPAMIDOL-300 100 ML VIAL IVP ONE (20:37)
[2016-11-30] MEDS ORDERED: DOCUSATE SODIUM 250 MG CAPSULE PO ONE (21:27)
--- NOTE | 2016-11-30 21:45 | PROVIDER PROGRESS NOTE ---
Subjective - General Admit Date: 11/21/16 Procedure Date: 11/29/16 (And 11/21/16) Post Op Days: 1 Procedure Performed: CTx2 R for pleural effusion and CTin L for pleural effusion - Review of Systems Wound/Incisions: positive: Healing well, Dressing dry and intact Drain Type: 28 Fr straight chest tube in LEFT and 32 Fr right angled chest tube in RIGH Drain Output Description: serosanguinous on RIGHT and serous on LEFT Approximate mls Output: 415 on RIGHT and 1070 on LEFT General: positive: Fatigue (Mild.), Other (Clearly feels worse tonight with shortness of breath and increased anxiety) HEENT: positive: Sinus congestion (States that it is what he normally experiences in the morning.) Pulmonary: positive: Shortness of breath, Pleuritic chest pain (Improved.) Cardiovascular: positive: No symptoms Gastrointestinal: negative: Nausea, Vomiting Musculoskeletal: positive: No symptoms Skin: positive: Pallor Psychiatric: positive: Depression, Anxiety Objective - Patient Data Reviewed Vital Signs: Yes Vital Signs: Vital Signs x48h Temp Pulse Resp BP Pulse Ox 11/30/16 19:25 112 H 31 H 11/30/16 18:28 36.3 C L 111 H 21 112/72 96 11/30/16 16:11 36.6 C 111 H 19 121/83 H 94 Intake & Output: Intake and Output Totals x24h 11/28/16 11/29/16 11/30/16 23:59 23:59 23:59 Intake Total 1650 2506 2119 Output Total 990 2238 1000 Balance 771 805 0408 - Lab Results Lab Results: 11/30/16 16:40 11/30/16 16:40 Other Lab Results: Lab Results x24hrs 11/30/16 11/30/16 11/30/16 Range/Units 16:40 16:40 16:40 WBC 29.5 H (4.8-10.8) x10^3/uL RBC 3.52 L (4.70-6.10) 10^6/uL Hgb 10.1 L (14.0-18.0) g/dL Hct 32.2 L (42.0-52.0) % MCV 91.5 (80.0-94.0) fL MCH 28.6 (27.0-31.0) pg MCHC 31.3 L (32.0-36.0) g/dL RDW 20.5 H (12.0-15.0) % Plt Count 325 (130-450) 10^3/uL MPV 7.2 L (7.4-11.4) fL Neut # 26.9 H (1.5-6.6) 10^3/uL Lymph # 0.4 L (1.5-3.5) 10^3/uL Coosa # 1.8 H (0.0-1.0) 10^3/uL Eos # 0.3 (0.0-0.7) 10^3/uL Baso # 0.1 (0.0-0.1) 10^3/uL Absolute Nucleated RBC 0.00 x10^3/uL Nucleated RBCs 0.0 /100WBC Manual Slide Review Indicated Platelet Estimate NORMAL (130-450,000) (NORMAL) Platelet Morphology 1+ LARGE PLATELETS (NORMAL) RBC Morph Micro Appear 2+ POIKILOCYTOSIS (NORMAL) Bld Gas Analysis Time Sample Site ABG pH (7.35-7.45) ABG pCO2 (34-45) mmHg ABG pO2 (80-100) mmHg ABG HCO3 (22.0-26.0) mmol/L ABG Total CO2 (21.0-29.0) MMOL/L ABG O2 Saturation (94-98) % ABG Base Excess (-2.0-3.0) mmol/L Zander Test Room Air FiO2 Sodium 131 L (135-145) mmol/L Potassium 4.4 (3.5-5.0) mmol/L Chloride 98 L (101-111) mmol/L Carbon Dioxide 21 (21-32) mmol/L Anion Gap 12.0 (6-13) BUN 18 (6-20) mg/dL Creatinine 1.2 (0.6-1.2) mg/dL Estimated GFR (MDRD) 60 L (>89) Glucose 140 H (70-100) mg/dL Calcium 8.2 L (8.5-10.3) mg/dL Total Bilirubin 0.9 (0.2-1.0) mg/dL AST 62 H (10-42) IU/L ALT 50 (10-60) IU/L Alkaline Phosphatase 948 H (42-121) IU/L Total Protein 5.9 L (6.7-8.2) g/dL Albumin 2.2 L (3.2-5.5) g/dL Globulin 3.7 (2.1-4.2) g/dL Albumin/Globulin Ratio 0.6 L (1.0-2.2) Blood Type O POSITIVE Antibody Screen NEGATIVE 11/30/16 Range/Units 16:20 WBC (4.8-10.8) x10^3/uL RBC (4.70-6.10) 10^6/uL Hgb (14.0-18.0) g/dL Hct (42.0-52.0) % MCV (80.0-94.0) fL MCH (27.0-31.0) pg MCHC (32.0-36.0) g/dL RDW (12.0-15.0) % Plt Count (130-450) 10^3/uL MPV (7.4-11.4) fL Neut # (1.5-6.6) 10^3/uL Lymph # (1.5-3.5) 10^3/uL Coosa # (0.0-1.0) 10^3/uL Eos # (0.0-0.7) 10^3/uL Baso # (0.0-0.1) 10^3/uL Absolute Nucleated RBC x10^3/uL Nucleated RBCs /100WBC Manual Slide Review Platelet Estimate (NORMAL) Platelet Morphology (NORMAL) RBC Morph Micro Appear (NORMAL) Bld Gas Analysis Time 1634 Sample Site RIGHT RADIAL ABG pH 7.35 (7.35-7.45) ABG pCO2 37 (34-45) mmHg ABG pO2 73 L (80-100) mmHg ABG HCO3 20.0 L (22.0-26.0) mmol/L ABG Total CO2 21.1 (21.0-29.0) MMOL/L ABG O2 Saturation 94 (94-98) % ABG Base Excess -5.1 L (-2.0-3.0) mmol/L Zander Test POSITIVE Room Air YES FiO2 0.21 Sodium (135-145) mmol/L Potassium (3.5-5.0) mmol/L Chloride (101-111) mmol/L Carbon Dioxide (21-32) mmol/L Anion Gap (6-13) BUN (6-20) mg/dL Creatinine (0.6-1.2) mg/dL Estimated GFR (MDRD) (>89) Glucose (70-100) mg/dL Calcium (8.5-10.3) mg/dL Total Bilirubin (0.2-1.0) mg/dL AST (10-42) IU/L ALT (10-60) IU/L Alkaline Phosphatase (42-121) IU/L Total Protein (6.7-8.2) g/dL Albumin (3.2-5.5) g/dL Globulin (2.1-4.2) g/dL Albumin/Globulin Ratio (1.0-2.2) Blood Type Antibody Screen - Current Medications Current Medications: Current Medications Generic Name Dose Route Start Last Admin Trade Name Freq PRN Reason Stop Dose Admin Docusate Sodium 250 - 500 mg 12/01/16 09:00 11/30/16 21:30 Colace 250mg Capsule PO 250 mg DAILY MARYBETH Administration Enoxaparin Sodium 120 mg 11/23/16 09:00 11/30/16 09:41 Lovenox SUBQ 120 mg DAILY MARYBETH Administration Gabapentin 100 mg 11/22/16 21:00 11/30/16 20:40 Neurontin PO 100 mg BID MARYBETH Administration Acetaminophen 100 mls @ 400 mls/hr 11/21/16 12:00 11/30/16 19:16 Ofirmev IV 400 mls/hr Q6H MARYBETH Administration Piperacillin Sod/Tazobactam 100 mls @ 200 mls/hr 11/23/16 02:00 11/30/16 21:08 Sod 3.375 gm/ Sodium Chloride IV 200 mls/hr Q6H MARYBETH Administration Levofloxacin 150 mls @ 100 mls/hr 11/30/16 18:00 11/30/16 17:55 Levaquin 750 Mg/150 Ml IV 100 mls/hr Q24H MARYBETH Administration Lorazepam 0.5 mg 11/23/16 22:21 11/30/16 21:30 Ativan PO 0.5 mg Q8H PRN Administration Anxiety Memantine 5 mg 11/23/16 09:00 11/30/16 10:14 Namenda PO 5 mg DAILY MARYBETH Administration Morphine Sulfate 4 mg 11/30/16 19:11 11/30/16 20:41 Morphine IVP 4 mg Q2H PRN Administration PAIN Ondansetron HCl 4 mg 11/23/16 17:02 11/30/16 09:10 Zofran Inj IVP 4 mg Q4HR PRN Administration Nausea / Vomiting Pantoprazole Sodium 40 mg 11/24/16 18:00 11/30/16 15:46 Protonix PO 40 mg BIDAC MARYBETH Administration Polyethylene Glycol 17 gm 11/22/16 09:00 11/30/16 09:11 Miralax PO Not Given DAILY MARYBETH Senna 8.6 mg 11/27/16 12:01 11/30/16 15:57 Senokot PO 8.6 mg DAILY PRN Administration Constipation Senna 17.2 mg 11/27/16 12:15 11/27/16 12:10 Senokot PO 17.2 mg DAILY PRN Administration Constipation Sodium Chloride 10 ml 11/21/16 11:35 11/29/16 21:34 Normal Saline Flush 0.9% IVP 10 ml PRN PRN Administration NEEDED PER PROVIDER ORDERS Sodium Chloride 10 ml 11/21/16 14:00 11/30/16 20:41 Normal Saline Flush 0.9% IVP 10 ml Q8HR MARYBETH Administration - Physical Exam Wound/Incisions: positive: Dressing dry and intact General Appearance: positive: Moderate distress, Anxious Eyes Bilateral: positive: No lid inflammation, Conjunctivae nml, No scleral icterus Neck: positive: Trachea midline Respiratory: positive: Other (Harsh rub on right relatively normal breath sounds on left) Cardiovascular: positive: Tachycardia Abdomen: positive: Non-tender Skin: positive: Pallor Extremities: positive: Non-tender Neurologic/Psychiatric: positive: Oriented x3 Impression/Plan - Problem List Problem List: With the elevated white blood cell count and the onset of shortness of breath with a normal sat and tachycardia I have ordered up a chest x-ray to make sure there is no problem with the chest tube and if this is normal then obtain a CT angiogram to rule out a possible pulmonary embolus. He is at risk for a DVT and a pulmonary embolus. Ativan has been given to allay any anxiety issues. If the chest x-ray looks normal tomorrow morning I should be able to pull the left chest tube. The question what to do with the right chest tube is a little bit more perplexing. He shown a somewhat chronically as well as a slowly expanding effusion. The options are to do nothing, continue persistent drainage with the chest tube, convert him to a Pleurx catheter or even VATS surgery. I think due to his clinical deterioration it is best to get him home as soon as possible. This determination will be made tomorrow following the chest x-ray as whether or not one or both chest tubes can be removed. Additionally, the chest x-ray tonight as well as a CT angiogram will help determine whether or not the patient has got a pulmonary embolus or possibly pneumonia.
--- NOTE | 2016-11-30 22:14 | XRAY Preliminary Report ---
Exam: XR Chest 1 View IMPRESSION: 1. Bilateral chest is terminating at the bases with residual tiny left apical pneumothorax and incomp lete reexpansion of the right mid to inferior lateral lung. Overall configuration is similar to the p revious chest radiograph. 2. Retrocardiac opacities likely represent atelectasis or infiltrates. 3. Persistent cardiac enlargement. [facility] SITE ID: [id number]
--- NOTE | 2016-11-30 22:27 | CT Preliminary Report ---
Exam: CT Chest Angio (PE) IMPRESSION: 1. No evidence for pulmonary emboli. 2. Overall the bilateral pneumothoraces do not appear significant changed in size. 3. Lung and liver metastasis again noted. See the remainder of the abnormal findings as above. [facility] SITE ID: [id number]
--- NOTE | 2016-11-30 22:34 | XRAY Report ---
EXAM: CHEST RADIOGRAPHY EXAM DATE: 11/30/2016 08:31 PM. CLINICAL HISTORY: Chest tube problem. COMPARISON: 11/29/2016. TECHNIQUE: 1 view. FINDINGS: Lungs/Pleura: Right-sided chest tube terminates at the lung base. There is air in the right mid to in ferior lateral hemithorax with incomplete expansion of the associated lung parenchyma. Small amount o f pneumothorax is also present in the medial superior right lung apex. There is a left-sided chest tu be at the base. Tiny left apical pneumothorax noted. Patchy retrocardiac opacities remain. Mediastinum: Stable cardiac silhouette. Other: Left-sided port terminates in the mid SVC. IMPRESSION: 1. Bilateral chest tubes terminate at the bases with residual tiny left apical pneumothorax and incom plete reexpansion of the right mid to inferior lateral lung. Overall configuration is similar to the previous chest radiograph. 2. Retrocardiac opacities likely represent atelectasis or infiltrates. 3. Persistent cardiac enlargement. [facility] Referring Provider Line: [phone] SITE ID: [id number]
--- NOTE | 2016-11-30 23:03 | CT Report ---
EXAM: CT ANGIOGRAM CHEST EXAM DATE: 11/30/2016 08:41 PM. CLINICAL HISTORY: Shortness of breath, chest pain. [address] bilaterally. Possible PE. COMPARISON: Chest 11/30/2016. Chest CT 11/23/2016. TECHNIQUE: Routine helical imaging was performed through the chest in the pulmonary arterial phase. I V Contrast: 80 mL Isovue 300. Reconstructions: Coronal 3-D MIP reconstructions.Sagittal and coronal. In accordance with CT protocol optimization, one or more of the following dose reduction techniques w ere utilized for this exam: automated exposure control, adjustment of mA and/or KV based on patient s ize, or use of iterative reconstructive technique. FINDINGS: Pulmonary Arteries: No evidence for pulmonary emboli. Mediastinum: No thoracic aortic aneurysm or dissection. Normal heart site. Small pericardial effusion mildly increased. Paratracheal lymph node is prominent measuring 7 mm, unchanged. Prominent subcarin al lymph nodes. Right hilar lymphadenopathy 1.3 cm, unchanged. Left hilar lymphadenopathy also appear s unchanged. These could represent metastasis versus reactive. Patient has a left-sided portacatheter . Lungs/pleura: Mild bibasilar lung consolidations, decreased. Decreased left base consolidation and le ft pleural effusion. Small left pleural effusion remains. Small right pleural effusion appears simila r to the prior. Bilateral pleural-based calcifications at the base again noted. Bibasilar chest tubes. Very small left pneumothorax, new compared to the prior chest CT. Right pneumo thorax which is moderate at the base and a smaller superiorly overall does not appear significantly changed. The more superiorly located right chest tube has been removed. Right apex peripheral linear nodular opacity appears unchanged. Bandlike opacities in the right lower lobe laterally appear unchanged. More rounded area in the consolidation posteriorly in the right low er lobe measuring 1.8 cm and a lung nodule here is possible. Multiple pulmonary nodules are better se en in the right lower lobe since the adjacent consolidation has decreased. Right lower lobe interlob ular septal thickening appears decreased. Decreased right lower lobe airspace disease. Bandlike opaci ty in the left lower lobe posteriorly. Pulmonary nodules in the left lower lobe. There are multiple b ilateral pulmonary nodules in this patient with known metastasis which are again noted. Spiculated no dule laterally in the left upper lobe is again noted, measures 1.7 cm. New small cavitated pulmonary nodule seen posteriorly in the left lower lobe measuring 7 mm. Small amount of bilateral subcutaneous emphysema adjacent to the chest tubes. Right axillary soft tis iam gas, decreased compared to the prior exam. Upper Abdomen: Numerous low-density masses most consistent with liver metastasis in the liver are aga in noted. IVC filter and diffuse mesenteric stranding again noted. Moderate to severe anasarca of the lower chest and upper abdomen appears increased. A few lucencies s een in the thoracic spine again noted, could represent lytic bone metastasis, similar to the prior. IMPRESSION: 1. No evidence for pulmonary emboli. 2. Bibasilar chest tubes. Very small left pneumothorax, new compared to the prior chest CT. Right pne umothorax which is moderate at the base and a smaller superiorly overall does not appear significant ly changed. The more superiorly located right chest tube has been removed. 3. Lung and liver metastasis again noted. 4. Overall, the acute lung disease appears improved compared to the prior exam as described above. [facility] Referring Provider Line: [phone] SITE ID: [id number]
[2016-12-01] MEDS: SODIUM CHLORIDE FLUSH 0.9% 10 ML SYRINGE IVP PRN ×2 (00:39→19:01)
[2016-12-01] MEDS: ACETAMINOPHEN 1,000 MG/100 ML 100 ML IV SCH ×4 (00:51→18:40)
[2016-12-01] MEDS: MORPHINE 2 MG/ML SYRINGE IVP PRN (03:03)
[2016-12-01] MEDS: SODIUM CHLORIDE FLUSH 0.9% 10 ML SYRINGE IVP SCH ×2 (05:33→14:31)
[2016-12-01] MEDS: PANTOPRAZOLE 40 MG TABLET PO SCH ×2 (05:33→17:42)
[2016-12-01] MEDS: LORazepam 0.5 MG TABLET PO PRN (05:46)
[2016-12-01 06:16] LABS: BASOPHILS % (AUTO) 0.2 %; EOSINOPHILS % (AUTO) 3.6 %; HCT - HEMATOCRIT 28.4 % (42.0-52.0); HGB - HEMOGLOBIN 9.2 g/dL (14.0-18.0); LYMPHOCYTES % (AUTO) 1.7 %; MEAN CORPUSCULAR HEMOGLOBIN 29.4 pg (27.0-31.0); MEAN CORPUSCULAR HGB CONC 32.2 g/dL (32.0-36.0); MEAN CORPUSCULAR VOLUME 91.3 fL (80.0-94.0); MEAN PLATELET VOLUME 7.2 fL (7.4-11.4); MONOCYTES % (AUTO) 6.1 %; NEUTROPHILS % (AUTO) 88.4 %; RED BLOOD COUNT 3.11 10^6/uL (4.70-6.10); RED CELL DISTRIBUTION WIDTH 20.8 % (12.0-15.0); UNCORRECTED WHITE BLOOD COUNT 28.1 x10^3/uL; WHITE BLOOD COUNT 28.1 x10^3/uL (4.8-10.8)
[2016-12-01 06:23] LABS: ALBUMIN/GLOBULIN RATIO 0.7 (1.0-2.2); CALCIUM 7.6 mg/dL (8.5-10.3); CREATININE 1.1 mg/dL (0.6-1.2); MAGNESIUM 2.1 mg/dL (1.7-2.8); POTASSIUM 4.3 mmol/L (3.5-5.0); TOTAL PROTEIN 5.3 g/dL (6.7-8.2)
[2016-12-01 06:54] LABS: BAND NEUTROPHILS % (MANUAL) 18 %; EOSINOPHILS % (MANUAL) 3 %; LYMPHOCYTES % (MANUAL) 1 %; NEUTROPHILS % (MANUAL) 71 %; TOTAL CELLS COUNTED 100
[2016-12-01 06:55] LABS: NP AUTO DIFFERENTIAL? YES; NP MAN DIFFERENTIAL? NO; PLATELET ESTIMATE, MANUAL NORMAL (130-450,000) (NORMAL)
[2016-12-01] MEDS: PIPERACILLIN/TAZOBACTAM 3.375 GM in SODIUM CHLORIDE 0.9% MINIBAG 100 ML IV SCH ×2 (07:52→14:12)
--- NOTE | 2016-12-01 07:58 | PROVIDER PROGRESS NOTE ---
Subjective - Prog Note Date Prog Note Date: 12/01/16 Prog Note Time: 07:57 - Subjective Pt reports feeling: Improved Subjective: Patient will be hopefully going home today. surgery is pulling the chest tubes today. He is still short of breath but better than yesterday. He is on pain medications home dosage and have added roxinol. he will be continuing [place] [facility] [place] and has requested social media project manager to help with home assistance a couple days a week. Current Medications - Current Medications Current Medications: Active Medications Generic Name Dose Route Start Last Admin Trade Name Freq PRN Reason Stop Dose Admin Acetaminophen 650 mg 11/22/16 18:46 Tylenol W[place] PRN PRN Analgesia Docusate Sodium 250 - 500 mg 12/01/16 09:00 11/30/16 21:30 Colace 250mg Capsule PO 250 mg DAILY MARYBETH Administration Enoxaparin Sodium 120 mg 11/23/16 09:00 11/30/16 09:41 Lovenox SUBQ 120 mg DAILY MARYBETH Administration Furosemide 40 mg 12/01/16 09:00 Lasix Inj 40 Mg Vial IVP DAILY MARYBETH Gabapentin 100 mg 11/22/16 21:00 11/30/16 20:40 Neurontin PO 100 mg BID MARYBETH Administration Guaifenesin/Codeine Phosphate 5 - 10 ml 11/22/16 18:46 Robitussin Ac PO Q4HR PRN Cough Acetaminophen 100 mls @ 400 mls/hr 11/21/16 12:00 12/01/16 05:33 Ofirmev IV 400 mls/hr Q6H MARYBETH Administration Piperacillin Sod/Tazobactam 100 mls @ 200 mls/hr 11/23/16 02:00 12/01/16 07:52 Sod 3.375 gm/ Sodium Chloride IV 200 mls/hr Q6H MARYBETH Administration Levofloxacin 150 mls @ 100 mls/hr 11/30/16 18:00 11/30/16 17:55 Levaquin 750 Mg/150 Ml IV 100 mls/hr Q24H MARYBETH Administration Linezolid 300 mls @ 300 mls/hr 12/01/16 08:00 Zyvox 600 Mg/300 Ml IV Q12H MARYBETH Lorazepam 0.5 mg 11/23/16 22:21 12/01/16 05:46 Ativan PO 0.5 mg Q8H PRN Administration Anxiety Memantine 5 mg 11/23/16 09:00 11/30/16 10:14 Namenda PO 5 mg DAILY MARYBETH Administration Morphine Sulfate 4 mg 11/30/16 19:11 12/01/16 03:03 Morphine IVP 4 mg Q2H PRN Administration PAIN Ondansetron HCl 4 mg 11/23/16 17:02 11/30/16 09:10 Zofran Inj IVP 4 mg Q4HR PRN Administration Nausea / Vomiting Pantoprazole Sodium 40 mg 11/24/16 18:00 12/01/16 05:33 Protonix PO 40 mg BIDAC MARYBETH Administration Polyethylene Glycol 17 gm 11/22/16 09:00 11/30/16 09:11 Miralax PO Not Given DAILY MARYBETH Prochlorperazine Edisylate 10 mg 11/23/16 17:03 Compazine Inj IVP Q4HR PRN Nausea / Vomiting Senna 8.6 mg 11/27/16 12:01 11/30/16 15:57 Senokot PO 8.6 mg DAILY PRN Administration Constipation Senna 17.2 mg 11/27/16 12:15 11/27/16 12:10 Senokot PO 17.2 mg DAILY PRN Administration Constipation Sodium Chloride 10 ml 11/21/16 11:35 12/01/16 00:39 Normal Saline Flush 0.9% IVP 10 ml PRN PRN Administration NEEDED PER PROVIDER ORDERS Sodium Chloride 10 ml 11/21/16 14:00 12/01/16 05:33 Normal Saline Flush 0.9% IVP 10 ml Q8HR MARYBETH Administration Pantoprazole [Protonix] 40 mg PO BID 02/02/16 Enoxaparin [Lovenox] 120 mg SQ DAILY 03/22/16 HYDROmorphone [Dilaudid] 2 - 4 mg ORAL Q4HR PRN 08/23/16 Gabapentin 100 mg PO BID 09/06/16 guaiFENesin/CODEINE [Robitussin AC] 5 - 10 ml PO Q4HR PRN 11/02/16 Acetaminophen [Tylenol] 650 mg pe PO PRN PRN 11/10/16 Memantine [Namenda] 5 mg PO DAILY 11/16/16 Objective - Vital Signs/Intake & Output Reviewed Vital Signs: Yes Vital Signs: Vital Signs x48h Temp Pulse Resp BP BP Pulse Ox 12/01/16 07:56 36.5 C 101 H 26 H 117/75 95 12/01/16 02:00 36.5 C 100 20 123/65 94 Intake & Output: Intake & Output 11/28/16 11/29/16 11/30/16 12/01/16 23:59 23:59 23:59 23:59 Intake Total 1650 2506 3077 100 Output Total 990 2238 1190 440 Balance 711 474 1788 -340 - Objective General Appearance: positive: No acute distress, Alert Eyes Bilateral: positive: Normal inspection, PERRL ENT: positive: ENT inspection nml, Pharynx nml, No signs of dehydration Neck: positive: Nml inspection, Thyroid nml, No JVD, Trachea midline Respiratory: positive: Rhonchi Cardiovascular: positive: Regular rate & rhythm, No murmur, No gallop Abdomen: positive: Non-tender, No distention Back: positive: Nml inspection (chest tube sites with clean dry bandages) Skin: positive: Color nml, No rash, Warm, Dry Extremities: positive: Non-tender, Full ROM, Nml appearance Neurologic/Psychiatric: positive: Oriented x3, CN's nml (2-12), Motor nml, Sensation nml, Mood/affect nml - Lab Results Fish Bones: 12/01/16 05:50 12/01/16 05:50 Other Labs: Lab Results x24hrs 12/01/16 12/01/16 11/30/16 Range/Units 05:50 05:50 16:40 WBC 28.1 H (4.8-10.8) x10^3/uL RBC 3.11 L (4.70-6.10) 10^6/uL Hgb 9.2 L (14.0-18.0) g/dL Hct 28.4 L (42.0-52.0) % MCV 91.3 (80.0-94.0) fL MCH 29.4 (27.0-31.0) pg MCHC 32.2 (32.0-36.0) g/dL RDW 20.8 H (12.0-15.0) % Plt Count 330 (130-450) 10^3/uL MPV 7.2 L (7.4-11.4) fL Neut # Not Reportable (1.5-6.6) 10^3/uL Lymph # Not Reportable (1.5-3.5) 10^3/uL Lasalle # Not Reportable (0.0-1.0) 10^3/uL Eos # Not Reportable (0.0-0.7) 10^3/uL Baso # Not Reportable (0.0-0.1) 10^3/uL Absolute Nucleated RBC Not Reportable x10^3/uL Total Counted 100 Band Neuts % (Manual) 18 H (0 - 10) % Metamyelocytes % 1 H ( - 0) % Myelocytes % 1 H ( - 0) % Neutrophils # (Manual) 25.0 H (1.5-6.6) 10^3/uL Lymphocytes # (Manual) 0.3 L (1.5-3.5) 10^3/uL Monocytes # (Manual) 1.4 H (0.0-1.0) 10^3/uL Eosinophils # (Manual) 0.8 H (0-0.7) 10^3/uL Nucleated RBCs Not Reportable /100WBC Differential Comment MANUAL DIFFERENTIAL Manual Slide Review Platelet Estimate NORMAL (130-450,000) (NORMAL) Platelet Morphology (NORMAL) RBC Morph Micro Appear 1+ OVALOCYTES (NORMAL) Bld Gas Analysis Time Sample Site ABG pH (7.35-7.45) ABG pCO2 (34-45) mmHg ABG pO2 (80-100) mmHg ABG HCO3 (22.0-26.0) mmol/L ABG Total CO2 (21.0-29.0) MMOL/L ABG O2 Saturation (94-98) % ABG Base Excess (-2.0-3.0) mmol/L Zander Test Room Air FiO2 Sodium 131 L (135-145) mmol/L Potassium 4.3 (3.5-5.0) mmol/L Chloride 100 L (101-111) mmol/L Carbon Dioxide 22 (21-32) mmol/L Anion Gap 9.0 (6-13) BUN 19 (6-20) mg/dL Creatinine 1.1 (0.6-1.2) mg/dL Estimated GFR (MDRD) 67 L (>89) Glucose 110 H (70-100) mg/dL Calcium 7.6 L (8.5-10.3) mg/dL Magnesium 2.1 (1.7-2.8) mg/dL Total Bilirubin 1.0 (0.2-1.0) mg/dL AST 41 (10-42) IU/L ALT 40 (10-60) IU/L Alkaline Phosphatase 751 H (42-121) IU/L Total Protein 5.3 L (6.7-8.2) g/dL Albumin 2.1 L (3.2-5.5) g/dL Globulin 3.2 (2.1-4.2) g/dL Albumin/Globulin Ratio 0.7 L (1.0-2.2) Blood Type O POSITIVE Antibody Screen NEGATIVE 11/30/16 11/30/16 11/30/16 Range/Units 16:40 16:40 16:20 WBC 29.5 H (4.8-10.8) x10^3/uL RBC 3.52 L (4.70-6.10) 10^6/uL Hgb 10.1 L (14.0-18.0) g/dL Hct 32.2 L (42.0-52.0) % MCV 91.5 (80.0-94.0) fL MCH 28.6 (27.0-31.0) pg MCHC 31.3 L (32.0-36.0) g/dL RDW 20.5 H (12.0-15.0) % Plt Count 325 (130-450) 10^3/uL MPV 7.2 L (7.4-11.4) fL Neut # 26.9 H (1.5-6.6) 10^3/uL Lymph # 0.4 L (1.5-3.5) 10^3/uL Lasalle # 1.8 H (0.0-1.0) 10^3/uL Eos # 0.3 (0.0-0.7) 10^3/uL Baso # 0.1 (0.0-0.1) 10^3/uL Absolute Nucleated RBC 0.00 x10^3/uL Total Counted Band Neuts % (Manual) (0 - 10) % Metamyelocytes % ( - 0) % Myelocytes % ( - 0) % Neutrophils # (Manual) (1.5-6.6) 10^3/uL Lymphocytes # (Manual) (1.5-3.5) 10^3/uL Monocytes # (Manual) (0.0-1.0) 10^3/uL Eosinophils # (Manual) (0-0.7) 10^3/uL Nucleated RBCs 0.0 /100WBC Differential Comment Manual Slide Review Indicated Platelet Estimate NORMAL (130-450,000) (NORMAL) Platelet Morphology 1+ LARGE PLATELETS (NORMAL) RBC Morph Micro Appear 2+ POIKILOCYTOSIS (NORMAL) Bld Gas Analysis Time 1634 Sample Site RIGHT RADIAL ABG pH 7.35 (7.35-7.45) ABG pCO2 37 (34-45) mmHg ABG pO2 73 L (80-100) mmHg ABG HCO3 20.0 L (22.0-26.0) mmol/L ABG Total CO2 21.1 (21.0-29.0) MMOL/L ABG O2 Saturation 94 (94-98) % ABG Base Excess -5.1 L (-2.0-3.0) mmol/L Zander Test POSITIVE Room Air YES FiO2 0.21 Sodium 131 L (135-145) mmol/L Potassium 4.4 (3.5-5.0) mmol/L Chloride 98 L (101-111) mmol/L Carbon Dioxide 21 (21-32) mmol/L Anion Gap 12.0 (6-13) BUN 18 (6-20) mg/dL Creatinine 1.2 (0.6-1.2) mg/dL Estimated GFR (MDRD) 60 L (>89) Glucose 140 H (70-100) mg/dL Calcium 8.2 L (8.5-10.3) mg/dL Magnesium (1.7-2.8) mg/dL Total Bilirubin 0.9 (0.2-1.0) mg/dL AST 62 H (10-42) IU/L ALT 50 (10-60) IU/L Alkaline Phosphatase 948 H (42-121) IU/L Total Protein 5.9 L (6.7-8.2) g/dL Albumin 2.2 L (3.2-5.5) g/dL Globulin 3.7 (2.1-4.2) g/dL Albumin/Globulin Ratio 0.6 L (1.0-2.2) Blood Type Antibody Screen - Diagnostic Imaging Diagnostic Imaging Results: positive: Final report reviewed - Other Results/Comments Other Results/Comments: Impression and Plan Problem List (1) Malignant pleural effusion Impression: continued with lasix IV and changed to PO to go home. chest tube placement x 2. patient is still seeking to have chemotherapy and is hopeful to improve. pallative care has been addressed. patient not wanting hospice at this time. continued with planned interventions and with surgery as primary and plan to get patient home as soon as possible. Dr Mijares was contacted regarding patient status and continuation with chemotherapy. He will be able to get into the MAC on the and treatment on the . (2) Complication of chest tube Impression: acute and ongoing. patient has one tube on the right side and one on the left at this time and putting out fluid with no leak. worsening effusion now with effusion to left side and on right side as well. surgery to remove both tubes today and patient to be discharge home with family per surgery Qualifiers: Encounter type: initial encounter Qualified Code(s): T85.9XXA - Unspecified complication of internal prosthetic device, implant and graft, initial encounter (3) Hyponatremia Impression: acute and resolved. 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 continued to monitor daily labs and with surgery as primary. patient still wanting chemotherapy and Dr Mijares has been notified and reviewed the records and assistance to facilitate pallative interventions from Alis Jameson Time spent with patient was 40 minutes for planning and assessment. surgery will be discharging patient home today and we will sign off Assessment/Plan - Problem List (2) Complication of chest tube Qualifiers: Encounter type: initial encounter Qualified Code(s): T85.9XXA - Unspecified complication of internal prosthetic device, implant and graft, initial encounter
[2016-12-01] MEDS ORDERED: LINEZOLID 600 MG/300 ML 300 ML IV SCH (08:00)
[2016-12-01] MEDS: ONDANSETRON 4 MG/2 ML VIAL IVP PRN (08:43)
[2016-12-01] MEDS: ENOXAPARIN 120 MG/0.8 ML SYRINGE SUBQ SCH (08:52)
[2016-12-01] MEDS ORDERED: FUROSEMIDE 40 MG/4 ML VIAL IVP SCH (09:00)
[2016-12-01] MEDS ORDERED: DOCUSATE SODIUM 250 MG CAPSULE PO SCH (09:00)
[2016-12-01] MEDS: GABAPENTIN 100 MG CAPSULE PO SCH (09:18)
--- NOTE | 2016-12-01 09:33 | XRAY Report ---
CHEST X-RAY: 12/01/2016 CLINICAL HISTORY: Followup bilateral chest tubes. COMPARISON: 11/30/2016. FINDINGS: There is a left Port-A-Cath. There is a chest tube in each chest. The size of the right pn eumothorax with partial atelectasis of the right lung is approximately the same. Suspect tiny residua l left apical pneumothorax. Patchy left lower lung air space disease similar to prior. Heart size acc entuated by technique. IMPRESSION: STABLE ABNORMAL CHEST X-RAY COMPARED TO THE PRECEDING DAY. JOB #: [id number] EXT JOB #:[id number]
[2016-12-01] MEDS: POLYETHYLENE GLYCOL 3350 17 GM PACKET PO SCH (10:15)
[2016-12-01] MEDS: MEMANTINE 5 MG TABLET PO SCH (10:27)
[2016-12-01] MEDS ORDERED: diphenhydrAMINE INJ 50 MG/ML VIAL IVP PRN (10:34)
[2016-12-01] MEDS ORDERED: ONDANSETRON ODT 4 MG TABLET TL PRN (11:53)
[2016-12-01] MEDS ORDERED: oxyCODONE 10 MG/0.5 ML SYRINGE PO PRN (14:25)
--- NOTE | 2016-12-01 16:45 | CONSULTATION NOTE ---
Palliative Care Follow Up - Referral Referring Provider: Dr. 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 Preparing for discharge after prolonged hospitalization. To have chest tubes removed, significant pleural effusions, with attempt to treat with pleurodesis with varying degrees of success through this last week. Patient has pneumonia, currently on antibiotics, tolerating well. Patient with anasarca, found to have progressive liver mets, and moderate symptom burden. Current short term goal is to transition home, son visiting from [place], hope to stablize, all aware the seriousness of his condition. Patient's longer term goal is to be able to move forward with chemotherapy next week, unclear if going to be able to tolerate as he has continued functional and some cognitive decline. Social History - Living Situation Living arrangement: At home Living Situation: With spouse/s.o. (will have support of son over weekend; services to be ordered) Medications/Allergies - Medications Active Medication List: Active Medications Acetaminophen (Tylenol) 650 mg WI PRN PRN PRN Reason: Analgesia Diphenhydramine HCl (Benadryl Inj) 25 mg IVP Q6H PRN PRN Reason: Allergy Symptoms Last Admin: 12/01/16 11:40 Dose: 25 mg Docusate Sodium (Colace 250mg Capsule) 250 - 500 mg PO DAILY [facility] Last Admin: 11/30/16 21:30 Dose: 250 mg Enoxaparin Sodium (Lovenox) 120 mg SUBQ DAILY [facility] Last Admin: 12/01/16 08:52 Dose: 120 mg Gabapentin (Neurontin) 100 mg PO BID [facility] Last Admin: 12/01/16 09:18 Dose: 100 mg Guaifenesin/Codeine Phosphate (Robitussin Ac) 5 - 10 ml PO Q4HR PRN PRN Reason: Cough Heparin Sodium (Beef Lung) () 300 - 500 unit IVP ONCE PRN PRN Reason: Port Protocol (>24 hours) Stop: 12/31/16 14:40 Acetaminophen (Ofirmev) 100 mls @ 400 mls/hr IV Q6H [facility] Last Admin: 12/01/16 11:39 Dose: 400 mls/hr Piperacillin Sod/Tazobactam (Sod 3.375 gm/ Sodium Chloride) 100 mls @ 200 mls/ hr IV Q6H [facility] Last Admin: 12/01/16 14:12 Dose: 200 mls/hr Levofloxacin (Levaquin 750 Mg/150 Ml) 150 mls @ 100 mls/hr IV Q24H [facility] Last Admin: 11/30/16 17:55 Dose: 100 mls/hr Linezolid (Zyvox 600 Mg/300 Ml) 300 mls @ 300 mls/hr IV Q12H [facility] Last Admin: 12/01/16 08:51 Dose: 300 mls/hr Lorazepam (Ativan) 0.5 mg PO Q8H PRN PRN Reason: Anxiety Last Admin: 12/01/16 05:46 Dose: 0.5 mg Memantine (Namenda) 5 mg PO DAILY [facility] Last Admin: 12/01/16 10:27 Dose: 5 mg Ondansetron HCl (Zofran Odt) 4 mg TL Q4HR PRN PRN Reason: Nausea / Vomiting Oxycodone HCl (Roxicodone Oral Soln) 10 mg PO Q4HR PRN PRN Reason: PAIN Pantoprazole Sodium (Protonix) 40 mg PO BIDAC [facility] Last Admin: 12/01/16 05:33 Dose: 40 mg Polyethylene Glycol (Miralax) 17 gm PO DAILY [facility] Last Admin: 12/01/16 10:15 Dose: 17 gm Senna (Senokot) 8.6 mg PO DAILY PRN PRN Reason: Constipation Last Admin: 11/30/16 15:57 Dose: 8.6 mg Senna (Senokot) 17.2 mg PO DAILY PRN PRN Reason: Constipation Last Admin: 11/27/16 12:10 Dose: 17.2 mg Sodium Chloride (Normal Saline Flush 0.9%) 10 ml IVP PRN PRN PRN Reason: NEEDED PER PROVIDER ORDERS Last Admin: 12/01/16 00:39 Dose: 10 ml Sodium Chloride (Normal Saline Flush 0.9%) 10 ml IVP Q8HR [facility] Last Admin: 12/01/16 14:31 Dose: Not Given Pantoprazole [Protonix] 40 mg PO BID 02/02/16 Enoxaparin [Lovenox] 120 mg SQ DAILY 03/22/16 HYDROmorphone [Dilaudid] 2 - 4 mg ORAL Q4HR PRN 08/23/16 Gabapentin 100 mg PO BID 09/06/16 guaiFENesin/CODEINE [Robitussin AC] 5 - 10 ml PO Q4HR PRN 11/02/16 Acetaminophen [Tylenol] 650 mg pe PO PRN PRN 11/10/16 Memantine [Namenda] 5 mg PO DAILY 11/16/16 - Allergies Allergies/Adverse Reactions: Allergies Allergy/AdvReac Type Severity Reaction Status Date / Time No Known Drug Allergies Allergy Verified 09/27/16 17:38 Review of Systems - Constitutional Constitutional: reports: Fatigue, Poor appetite, Weight loss - Eyes Eyes: reports: Corrective lenses - Ears, Nose & Throat Ears, Nose & Throat: reports: Postnasal drainage, Other (complains of ear "plugged" inst not to use benadryl if has not been helpful up to this point) - Cardiovascular Cariovascular: reports: Decr. exercise tolerance, Orthopnea (Inst. to sleep in recliner with head elevated: can consider hospital bed if needed) - Respiratory Respiratory: reports: SOB at rest, SOB with exertion - Gastrointestinal Gastrointestinal: reports: Constipation (better controlled), Bloating, Poor appetite. denies: Nausea - Genitourinary Genitourinary: reports: Urgency - Musculoskeletal Musculoskeletal: reports: Muscle weakness (has been bedbound for greater than week) - Integumentary Integumentary: reports: Dryness - Neurological Neurological: reports: General weakness, Memory problems. denies: Headache - Psychiatric Psychiatric: reports: Depression, Anxiety - Hematologic/Lymphatic Hematologic/Lymphatic: reports: Anemia, Recurrent infections (current pneumonia ; on AB) - All Other Systems All Other Systems: reports: Reviewed and negative Physical Examination - Vital Signs Vital Signs: Vital Signs x48h Pulse Ox 12/01/16 10:56 95 - Physical Exam General Appearance: positive: Anxious (awaiting removal of chest tubes; discharging home) Eyes Bilateral: positive: Normal inspection ENT: positive: Dry mucous membranes Neck: positive: No JVD, Trachea midline Respiratory: positive: Other (respiratory effort; difficulty with deep breath) Cardiovascular: positive: Tachycardia Abdomen: positive: Other (continues with third spacing in lower abdomen up past sacrum; abdomen still with distension) Skin: positive: Pallor Neurologic/Psychiatric: positive: Oriented x3, Weakness Palliative Care - POLST Patient has POLST: Yes POLST Status: DNR, Limited Interventions Pain: Pain unchanged, Location (chest tube sites; lower back) Drowsiness: Mild (1-3) Nausea: Mild (1-3) Anxiety: Moderate (4-6) Dyspnea: Moderate (4-6) Anorexia: Mild (1-3) Constipation: Yes, Opoid induced, Managed Feelings of wellbeing/Perceived Quality of Life: Worsening Performance Status: Palliative Care Performance Status [40]. - Palliative Care Discussion: Patient with admitted underlying anxiety, family nervous as preparing to go home. shared family is trying to convince hime to focus on just being comfortable; struggling with supporting patient's focus on the chemotherapy but recognize that is who he is. Patient worried about "what next" and not having to return back to hospital. Agreed would set up Sunday visit at home to revisit current status and goals/support needed. Results - Lab Results Lab results reviewed: Yes Fish Bones: 12/01/16 05:50 12/01/16 05:50 Lab and Imaging Results: Lab Results x24hrs 12/01/16 12/01/16 11/30/16 Range/Units 05:50 05:50 16:40 WBC 28.1 H (4.8-10.8) x10^3/uL RBC 3.11 L (4.70-6.10) 10^6/uL Hgb 9.2 L (14.0-18.0) g/dL Hct 28.4 L (42.0-52.0) % MCV 91.3 (80.0-94.0) fL MCH 29.4 (27.0-31.0) pg MCHC 32.2 (32.0-36.0) g/dL RDW 20.8 H (12.0-15.0) % Plt Count 330 (130-450) 10^3/uL MPV 7.2 L (7.4-11.4) fL Neut # Not Reportable (1.5-6.6) 10^3/uL Lymph # Not Reportable (1.5-3.5) 10^3/uL [place] # Not Reportable (0.0-1.0) 10^3/uL Eos # Not Reportable (0.0-0.7) 10^3/uL Baso # Not Reportable (0.0-0.1) 10^3/uL Absolute Nucleated RBC Not Reportable x10^3/uL Total Counted 100 Band Neuts % (Manual) 18 H (0 - 10) % Metamyelocytes % 1 H ( - 0) % Myelocytes % 1 H ( - 0) % Neutrophils # (Manual) 25.0 H (1.5-6.6) 10^3/uL Lymphocytes # (Manual) 0.3 L (1.5-3.5) 10^3/uL Monocytes # (Manual) 1.4 H (0.0-1.0) 10^3/uL Eosinophils # (Manual) 0.8 H (0-0.7) 10^3/uL Nucleated RBCs Not Reportable /100WBC Differential Comment MANUAL DIFFERENTIAL Manual Slide Review Platelet Estimate NORMAL (130-450,000) (NORMAL) Platelet Morphology (NORMAL) RBC Morph Micro Appear 1+ OVALOCYTES (NORMAL) Sodium 131 L (135-145) mmol/L Potassium 4.3 (3.5-5.0) mmol/L Chloride 100 L (101-111) mmol/L Carbon Dioxide 22 (21-32) mmol/L Anion Gap 9.0 (6-13) BUN 19 (6-20) mg/dL Creatinine 1.1 (0.6-1.2) mg/dL Estimated GFR (MDRD) 67 L (>89) Glucose 110 H (70-100) mg/dL Calcium 7.6 L (8.5-10.3) mg/dL Magnesium 2.1 (1.7-2.8) mg/dL Total Bilirubin 1.0 (0.2-1.0) mg/dL AST 41 (10-42) IU/L ALT 40 (10-60) IU/L Alkaline Phosphatase 751 H (42-121) IU/L Total Protein 5.3 L (6.7-8.2) g/dL Albumin 2.1 L (3.2-5.5) g/dL Globulin 3.2 (2.1-4.2) g/dL Albumin/Globulin Ratio 0.7 L (1.0-2.2) Blood Type O POSITIVE Antibody Screen NEGATIVE 11/30/16 11/30/16 Range/Units 16:40 16:40 WBC 29.5 H (4.8-10.8) x10^3/uL RBC 3.52 L (4.70-6.10) 10^6/uL Hgb 10.1 L (14.0-18.0) g/dL Hct 32.2 L (42.0-52.0) % MCV 91.5 (80.0-94.0) fL MCH 28.6 (27.0-31.0) pg MCHC 31.3 L (32.0-36.0) g/dL RDW 20.5 H (12.0-15.0) % Plt Count 325 (130-450) 10^3/uL MPV 7.2 L (7.4-11.4) fL Neut # 26.9 H (1.5-6.6) 10^3/uL Lymph # 0.4 L (1.5-3.5) 10^3/uL [place] # 1.8 H (0.0-1.0) 10^3/uL Eos # 0.3 (0.0-0.7) 10^3/uL Baso # 0.1 (0.0-0.1) 10^3/uL Absolute Nucleated RBC 0.00 x10^3/uL Total Counted Band Neuts % (Manual) (0 - 10) % Metamyelocytes % ( - 0) % Myelocytes % ( - 0) % Neutrophils # (Manual) (1.5-6.6) 10^3/uL Lymphocytes # (Manual) (1.5-3.5) 10^3/uL Monocytes # (Manual) (0.0-1.0) 10^3/uL Eosinophils # (Manual) (0-0.7) 10^3/uL Nucleated RBCs 0.0 /100WBC Differential Comment Manual Slide Review Indicated Platelet Estimate NORMAL (130-450,000) (NORMAL) Platelet Morphology 1+ LARGE PLATELETS (NORMAL) RBC Morph Micro Appear 2+ POIKILOCYTOSIS (NORMAL) Sodium 131 L (135-145) mmol/L Potassium 4.4 (3.5-5.0) mmol/L Chloride 98 L (101-111) mmol/L Carbon Dioxide 21 (21-32) mmol/L Anion Gap 12.0 (6-13) BUN 18 (6-20) mg/dL Creatinine 1.2 (0.6-1.2) mg/dL Estimated GFR (MDRD) 60 L (>89) Glucose 140 H (70-100) mg/dL Calcium 8.2 L (8.5-10.3) mg/dL Magnesium (1.7-2.8) mg/dL Total Bilirubin 0.9 (0.2-1.0) mg/dL AST 62 H (10-42) IU/L ALT 50 (10-60) IU/L Alkaline Phosphatase 948 H (42-121) IU/L Total Protein 5.9 L (6.7-8.2) g/dL Albumin 2.2 L (3.2-5.5) g/dL Globulin 3.7 (2.1-4.2) g/dL Albumin/Globulin Ratio 0.6 L (1.0-2.2) Blood Type Antibody Screen Impression and Recommendations - Palliative Care Impression: This is a 66 year old gentleman with Stage IV [place] adenocarcinoma with progressive mets to the liver, bone, brain and lungs mets. Recurrent and recalcitrant pleural effusions, somewhat improved, chest tubes pending to be pulled with goal to transition home. Patient continues with high symptom burden , functional and cognitive decline, hoping to continue with chemotherapy but tumor burden progressing. Family supportive, hoping for some quality time at home, preparing for discharge but very nervous. Recommendations/Counseling Done: 1. Dyspnea multifactorial. Counseling with patient and in particular on the use of the morphine both for pain and dyspnea. Rx to be obtained prior to discharge so has tools needed to manage symptoms. 2. Pain of neoplastic origin. Counseling to use morphine for pain, may use acetaminophen as adjuvant, but to use only one opioid. 3. Anxiety. Counseling for use of Lorazepam at home, Rx to be sent. Reviewed indications and use with . 4. Anasarca. To reinitiate lasix at home, reviewed hx of hyponatremia, encouraged to limit free water and patient like lemonade. 5. Constipation, Counseling regarding bowel medications, has use at home previously, to restart Miralax and Senna. 6. Advanced care planning. Patient would meet hospice criteria, and would benefit from team support. Agreed with will see how next few days go, planned home visit, will evaluate symptom burden, functional status, and equipment needs (probably benefit from hospital bed) on Sunday. Thank you Dr. Ayoub for allowing the palliative care consult team to support this complex and difficult situation. I will continue to follow on outpatient basis until transition to the hospice team. Time Spent: 30 minutes with greater aspen 50% done in counseling and coordination of care for management of symptoms and discharge planning.
[2016-12-01 16:51] VITALS: BP 122/79
--- NOTE | 2016-12-01 18:14 | XRAY Preliminary Report ---
Exam: XR Chest 1 View IMPRESSION: Bilateral chest tubes have been removed. Moderate right base pneumothorax appears unchang ed. Small right pleural effusion appears unchanged. Mild diffuse bilateral airspace disease, unchange d. Bandlike opacities at the bilateral mid and lower lungs appear unchanged. [facility] SITE ID: [id number]
--- NOTE | 2016-12-01 18:16 | XRAY Report ---
EXAM: CHEST RADIOGRAPHY EXAM DATE: 12/01/2016 05:23 PM. CLINICAL HISTORY: Pulled both chest tubes. COMPARISON: Chest 12/01/2016. TECHNIQUE: 1 view. FINDINGS: Lungs/Pleura: Bilateral chest tubes have been removed. Moderate right base pneumothorax appears uncha nged. Small right pleural effusion appears unchanged. Mild diffuse bilateral airspace disease, unchan ged. Bandlike opacities at the bilateral mid and lower lungs appear unchanged. Continued low lung vo lumes. Right chest wall subcutaneous emphysema noted. Mediastinum: Stable. IMPRESSION: Bilateral chest tubes have been removed. Moderate right base pneumothorax appears unchang ed. Small right pleural effusion appears unchanged. Mild diffuse bilateral airspace disease, unchange d. Bandlike opacities at the bilateral mid and lower lungs appear unchanged. DANIKA Referring Provider Line: [phone] SITE ID: [id number]
--- NOTE | 2016-12-01 18:32 | Discharge Plan ---
Discharge Plan Disposition: Home, Self Care Condition: Poor Prescriptions: Furosemide [Lasix] 20 mg PO DAILY #40 tablet Diet: Soft (Mechanical soft.) Activity Restrictions: No Restrictions Shower Restrictions: No Driving Restrictions: Yes Weight Bearing: Full Weight Additional Instructions or Follow Up instructions: Prescriptions for Morphine (20mg/mL) 0.25-0.5 mL (5-10 mL) every 2 hours #60 mLs and Lorazepam 0.5 mg 1-2 tabs every 4-6 hours PRN #60 given to patient. Call me or palliative care with questions or concerns. Alis Jameson will be meeting with the patient this Sunday and I (Lion Ayoub) want to see him on Sunday in my office. No Smoking: If you smoke, Please STOP! Call for help. Follow-up with: Deion Cole MD [Primary Care Provider] - Alis Jameson ARNP [Provider Admit Priv/Credential] - Lion Ayoub MD [Provider Admit Priv/Credential] -
--- NOTE | 2016-12-02 18:39 | DISCHARGE SUMMARY ---
DATE OF ADMISSION: 11/21/2016 DATE OF DISCHARGE: 12/01/2016 This very pleasant 66-year-old gentleman who has the unfortunate diagnosis of metastatic esophageal c arcinoma, came to the hospital on 11/21/2016 for palliative placement of chest tubes in his right [address]. He was taken to the operating room on 11/21/2016 with myself as the surgeon and Jose Beyer as [facility] harness maker of record, where he had 2 chest tubes placed and the removal of 2600 of clear blood-tin ged fluid from the chest. The very next day he had pleurodesis performed. In addition, a palliative c are consultation was sought by Alis Jameson. He had some resolution of his large pleural effusion to the point where he was a moderate-sized pleural effusion. The superiormost chest tube was removed, an d the patient had the inferior chest tube left with a small air leak and persistent effusion. During his hospitalization, he then developed a left-sided pleural effusion and with progressive shortness o f breath it was felt that the patient should have a left chest tube placed. This was done on 11/30/19 15 in the patient's bed. Anesthesia was present in this instance the anesthesia, the harness maker of [facility] was Ubaldo Mello. In a similar manner, the chest tube was placed on the and the on the left side was performed on the . Both tubes were then placed to 20 cm water suction. There was ongoing talk with Alis Jameson regarding palliative care. Despite very chana and up front conver sations, the patient feels that he still has a significant amount of life left in him. He is looking forward to starting chemotherapy this coming and receiving ongoing radiation therapy to his brain for brain metastasis. He is being discharged home today with an improvement on his pleural effu sions, but not complete resolution of his bilateral pleural effusions. It is expected that the pleura l effusion may recur on the right-hand side, it is hopeful that the one on the left side, will not re cur. The patient already had both chest tubes pulled today, and a chest x-ray from the post-chest tub e removal shows no worsening of his pleural effusion or no recurrence of pneumothorax. He is discharg ed home on all of his home medications, but in addition to receive morphine 0.25-0.5 mL or 5-10 mg ev gerry 2 hours as needed for pain, lorazepam 0.5 mg 1-2 tablets every 4 hours as needed for anxiety. Add itionally, he is given Lasix 20 mg daily to see if we cannot slow down the recurrence of the pleural effusion. He is to followup with Alis Jameson on Sunday. He is to followup with me on Sunday and gerald baker is to see the oncologist on . He has been asked to contact us for surgical questions and/or concerns. JOB #: [id number] EXT JOB #:[id number]
--- NOTE | 2016-12-13 12:34 | ONCOLOGY / HEMATOLOGY ---
DATE: 11/29/2016 00:00:00 SEE BLANKS BELOW - SEVERELY BAD AUDIO-STATIC - SPEAKER PHONE?[facility] HEMATOLOGY/ONCOLOGY FOLLOWUP NOTE MAY NEED TO BE RE-DICTATED ON DIFFERENT STATION? CLINIC NOTE ASSESSMENT AND PLAN: I saw the patient today in the hospital. He has been admitted for recurrent pleu ral effusions and had chest tubes placed in the right lung. The patient had a restaging CT scan done on 11/24/2016, and this showed left pleural effusio n with left lower lobe consolidation, unchanged pulmonary metastases, right base chest tube, , and partially collapsed right lung with airspace disease and consolidation. were increased from the prior CT of abdomen and pelvis. The patient had also lost a lot of weight during his __hospitalizations the last 1 month. The patient was recently getting radiation for brain met astases . Today we in detail about his cancer is progressing . I will plan on seeing the patient in 1 week in the clinic. hospital goals of care in 1 week as well. The patient reported understanding of our plan and all questions were answered . The patient's w carmella was also present during discussion [id number] in direct patient . ASSESSMENT AND PLAN: I saw the patient in the hospital today. The patient has been recently admitted for increasing right-sided pleural effusion and needed chest tube placement. . He also has mo derate left pleural effusion and on the left side as well. The patient also was getting radi ation treatments hospitalization. The patient also has declined since his last vi sit . The patient's most recent CT scans done at this hospitalization shows a new pleural eff usion and and numerous liver metastases prior CT. Today we discussed the goals of care and the patient wishes to continue on treatment. If cristina ent is able to be discharged . The patient's is also present during our discussion today . I spent 30 minutes, greater than 50% of this was [id number] in direct patient . JOB #: [id number] EXT JOB #:[id number]
== END 2016-12-01 19:25 | disposition home or self-care (01) | DRG 375 ==
LOC: SDS 07:22 → MS2 11:35
PROVIDERS: ADMIT Surgery; ATTEND Surgery
PROC: 0W9930Z Drainage of Right Pleural Cavity with Drainage Device, Percutaneous Approach (ICD-10-PCS; principal; 2016-11-21 08:30)
PROC: 3E0L3GC Introduction of Other Therapeutic Substance into Pleural Cavity, Percutaneous Approach (ICD-10-PCS; 2016-11-22)
PROC: 0W9B30Z Drainage of Left Pleural Cavity with Drainage Device, Percutaneous Approach (ICD-10-PCS; 2016-11-29)
DX: C16.0 Malignant neoplasm of cardia (principal); R64 Cachexia; J91.0 Malignant pleural effusion; C79.51 Secondary malignant neoplasm of bone; C78.7 Secondary malignant neoplasm of liver and intrahepatic bile duct; C78.02 Secondary malignant neoplasm of left lung; C78.01 Secondary malignant neoplasm of right lung; C79.31 Secondary malignant neoplasm of brain; J95.811 Postprocedural pneumothorax; E46 Unspecified protein-calorie malnutrition; E87.1 Hypo-osmolality and hyponatremia; K64.3 Fourth degree hemorrhoids; K21.9 Gastro-esophageal reflux disease without esophagitis; F41.9 Anxiety disorder, unspecified; F32.9 Major depressive disorder, single episode, unspecified; G70.1 Toxic myoneural disorders; T40.605D Adverse effect of unspecified narcotics, subsequent encounter; Y84.4 Aspiration of fluid as the cause of abnormal reaction of the patient, or of later complication, without mention of misadventure at the time of the procedure; Z86.718 Personal history of other venous thrombosis and embolism; Z87.891 Personal history of nicotine dependence; Y92.234 Operating room of hospital as the place of occurrence of the external cause; Z68.25 Body mass index [BMI] 25.0-25.9, adult; Z79.01 Long term (current) use of anticoagulants; K59.03 Drug induced constipation; T45.1X5D Adverse effect of antineoplastic and immunosuppressive drugs, subsequent encounter
CPT/HCPCS: 36415; 36600; 71010; 71020; 71275; 74177; 80048; 80053; 82550; 82552; 82553; 82803; 83735; 84484; 85025; 86850; 86900; 86901; 87040; 87640; 93005; 99221; 99232; 99233

== ENCOUNTER 2016-12-04 10:45 | Outpatient (CLI) | payer MEDICARE, OTHER ==
--- NOTE | 2016-12-04 20:09 | CONSULTATION NOTE ---
Palliative Care Follow Up - Referral Referring Provider: Dr. 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 He was recently hospitalized for prolonged period of time from 11/21 to 12/01/2016. He originally received palliative placement of chest tube in his right chest with a pleural Janusz is performed. He had a moderate sized pleural effusion with some improvement. Unfortunately during the same time. His left pleural effusion increased, for which he had another chest tube placed. Patient in the meantime also developed pneumonia was treated with antibiotics. And with increasing symptoms of abdominal distention, a CT scan was done and he was found to have progressive liver metastases including mass that measured 5.2 x 3.6 cm. His kidney function also worsened, and he developed anasarca. Despite his high symptom burden, the patient was remaining quite hopeful, to receive ongoing chemotherapy support. He had met with Dr. Mijares briefly last Sunday, and thought was to perhaps if patient's stabilized consider FOLFOXFIRI. This is actually a fairly toxic regimen. Patient has continued to decline, he does have leakage at his right chest tube site exit. This is light serosanguineous and has been difficult to contain with dressings. His breathlessness is remain somewhat at baseline. He does have diminished breath sounds in the bases left greater than right but no wheezing rhonchi or crackles. He has not had any fever, chills, or cough. His biggest complaint has been constipation, he reports abdominal fullness and early satiety. He has also had ongoing nausea and vomiting with any kind of substantial physical effort or attempt at eating. He has had minimal intake, and does appear dehydrated and more cachetic. His son had been home from [place] visiting, both he and the can acknowledge patient's impending decline. He has been very difficult for patient to "give up". Please see palliative care discussion. Social History - Living Situation Living arrangement: At home Living Situation: With spouse/s.o. Support System: Patient's sister coming tomorrow, can provide support. Son to return next week, very tearful and difficult goodbye, trying to figure out best time to be there to be of support. Has many friends who are willing to assist. Medications/Allergies - Medications Home Medications: Ambulatory Orders Medication Instructions Recorded Confirmed Pantoprazole [Protonix] 40 mg PO BID 02/02/16 12/04/16 Enoxaparin [Lovenox] 120 mg SQ DAILY 03/22/16 12/04/16 Gabapentin 100 mg PO BID 09/06/16 12/04/16 Furosemide [Lasix] 10 - 20 mg PO DAILY 12/04/16 12/04/16 LORazepam [Ativan] 0.5 - 1 mg PO Q4HR 12/04/16 12/04/16 Morphine Sulfate [Morphine Sulf 5 - 10 mg PO Q3HR 12/04/16 12/04/16 Oral (Roxanol)] Ondansetron Odt [Zofran Odt] 4 mg PO TID 12/04/16 12/04/16 Polyethylene Glycol 3350 [Miralax] 17 gm PO BID 12/04/16 12/04/16 Senna [Senokot] 17.2 mg PO TID 12/04/16 12/04/16 - Allergies Allergies/Adverse Reactions: Allergies Allergy/AdvReac Type Severity Reaction Status Date / Time No Known Drug Allergies Allergy Verified 09/27/16 17:38 Review of Systems - Constitutional Constitutional: reports: Fatigue, Weakness, Poor appetite. denies: Fever, Chills - Eyes Eyes: reports: Corrective lenses - Ears, Nose & Throat Ears, Nose & Throat: reports: Hearing loss, Hearing aids, Other (dry mouth) - Cardiovascular Cariovascular: reports: Edema, Exertional dyspnea, Decr. exercise tolerance, Orthopnea - Respiratory Respiratory: reports: Orthopnea, SOB at rest, SOB with exertion, Other (leaking chest tube site right) - Gastrointestinal Gastrointestinal: reports: Abdominal pain, Abdominal distention, Constipation, Nausea, Vomiting, Bloating, Other (hx of hemorrhoids) - Genitourinary Genitourinary: reports: Other (swollen penis and scrotum; some difficulty with stream; reports urine very brown) - Musculoskeletal Musculoskeletal: reports: Muscle aches, Muscle weakness - Integumentary Integumentary: reports: Dryness, Hair changes (alopecia) - Neurological Neurological: reports: General weakness, Memory problems (mild), Other (CIPN hands and feet; limit fine motor dexterity of hands). denies: Headache - Psychiatric Psychiatric: reports: Anxiety - Endocrine Endocrine: denies: Intolerance to cold, Intolerance to heat - Hematologic/Lymphatic Hematologic/Lymphatic: reports: Anemia, Recurrent infections (recent treatment for pneumonia) - All Other Systems All Other Systems: reports: Reviewed and negative Physical Examination - Vital Signs Temperature: 96.1 C Pulse Rate: 104 Respiratory Rate: 22 O2 Saturation: 95 (rest at room air) - Physical Exam General Appearance: positive: Mild distress, Anxious, Cachetic Eyes Bilateral: positive: No scleral icterus ENT: positive: Dry mucous membranes Neck: positive: Trachea midline Respiratory: positive: Other (see hpi). negative: Wheezes Cardiovascular: positive: Tachycardia Abdomen: positive: Tenderness, Abnml bowel sounds, Other (patient with anasaraca ; swelling through abdomen; down into penis/scrotum; up to mid lumbar area; abd flat but firm; rectal with no stool in lower vault; bowel tones distant and sluggish; patient with dry heaves several times during visit without any output) Skin: positive: Mottled (knees mottled), Pallor, Dryness, Other (sallow in color ) Extremities: positive: Pedal edema (less than in hospital; socks on with some decrease; thighs with swelling) Neurologic/Psychiatric: positive: Oriented x3, Weakness, Depressed mood/affect Comments/Other: bladder scan done prior to enema; showed 238 mls in bladder Palliative Care - POLST Patient has POLST: Yes POLST Status: DNR, Limited Interventions Pain: No pain Drowsiness: Mild (1-3) Nausea: Moderate (4-6) Anxiety: Mild (1-3) (though has not taken any lorazepam since yesterday; is effective but sedating) Dyspnea: Moderate (4-6) (morphine is helpful; but won't take because of constipation) Anorexia: Severe (7-10) Constipation: Yes, Opoid induced, Unmanaged Feelings of wellbeing/Perceived Quality of Life: Worsening Performance Status: Previous level of function prior to this episode [patient had been somewhat independent with ADLs prior to hospitalization, difficulty and limitation was breathlessness]. Current level of functioning [patient using walkier to ambulate , needing assist from sitting to standing, sleeping and spending most of time in recliner]. Palliative Care Performance Status [30%) - Palliative Care Discussion: Surrogate decision maker Halle Yang -. Very difficult visit and lengthy conversation related to patient's continued decline. Patient presents with increased functional decline increased symptom burden, decreased intake, attributed to his progressive disease status increased tumor burden. Given patient's functional status, poor intake, he would not currently be a candidate for further chemotherapy. In supporting patient, and transition of goals, long conversation was had regarding what is most important now. He did agree he wanted to be home, that he wanted to be comfortable, and to be with friends and family. In the context of this difficult situation, and need for support for his and family, he did agree to transition to hospice. This decision was not come to easily, and with great disappointment for the patient. Both his son and , were relieved to transition the focus on quality of life when known quality is limited. Impression and Recommendations - Palliative Care Impression: This is a 66-year-old gentleman with metastatic esophageal cancer at the GE junction, with metastases to the lung, bone, brain, and liver. He has progressive functional decline increasing symptom burden related to his progressive disease, at this point in time, the decision has made to transition to comfort measures and hospice support. Recommendations/Counseling Done: 1. Constipation opioid induced. Rectal exam was performed without any stool in rectal vault. Fleets enema was given with return of small amount of stool mixed with fluid. Did put patient on more aggressive bowel program, with MiraLAX twice daily, and senna 2 tabs 3 times daily. 2. Nausea vomiting most likely multifactorial in origin. Patient with very little intake, early satiety, and discomfort related to abdominal pressure. Ingesting constipation, may assist some, did schedule ondansetron 4 mg 3 times daily. 3. Dyspnea. Patient does get some relief with the morphine, he has been reticent to use it secondary to constipation. I did instruct the to give it at least every 4-6 hours in bed or attempt to keep him comfortable. Reassured patient will continue to titrate bowel program to balance. Will order oxygen through hospice as well. 4. Chest tube site leakage. I did talk at length with hospice staff in office , will go ahead and put some kind of bag, ileostomy or colostomy. This will save his skin as well as manage the fluid. Did provide with dressings I had with me. Did follow up with Dr. Ayoub who is in agreement with plan, if this becomes problematic can contact him for further assistance. This was communicated to the hospice medical physiologist. 5. Advanced care planning. Long and lengthy conversation with patient and his , and transitioning goals to focus on comfort. Patient does present with imminent decline, with mostly likely days to weeks. Counseling regarding hospice, and hospice support, follow-up with both the MAC and Dr. Ayoub is in agreement with plan. has been very supportive, patient's goals to pursue treatment, but is relieved to finally be focusing on his comfort. Both she and her son are aware of patient's impending decline. Time Spent: 75 minutes with greater than 50% of this done in counseling regarding management of dyspnea, nausea, constipation and coordination of care with hospice including need for equipment of oxygen and hospital bed and over the bed table.
== END 2016-12-04 10:46 | disposition home or self-care (01) ==
LOC: PC 10:45
PROVIDERS: ATTEND Nurse Practitioner Adult Health
DX: Z51.5 Encounter for palliative care (principal); K59.03 Drug induced constipation; T40.2X5D Adverse effect of other opioids, subsequent encounter; R11.2 Nausea with vomiting, unspecified; R06.00 Dyspnea, unspecified; T85.638A Leakage of other specified internal prosthetic devices, implants and grafts, initial encounter; C16.0 Malignant neoplasm of cardia; C78.00 Secondary malignant neoplasm of unspecified lung; C79.51 Secondary malignant neoplasm of bone; C79.31 Secondary malignant neoplasm of brain; C78.7 Secondary malignant neoplasm of liver and intrahepatic bile duct; J90 Pleural effusion, not elsewhere classified; R68.81 Early satiety; R53.83 Other fatigue; R06.09 Other forms of dyspnea; R60.9 Edema, unspecified; R10.9 Unspecified abdominal pain; M62.81 Muscle weakness (generalized); F41.9 Anxiety disorder, unspecified; Z66 Do not resuscitate
CPT/HCPCS: 99350